=== PATIENT | male | born 1990 | race Caucasian/White ===

== ENCOUNTER 2021-07-06 05:27 | Emergency (ER) | payer SELFPAY ==
[2021-07-06 05:47] LABS: Urine Blood Trace-intact (Negative); Urine Glucose Negative (Negative); Urine Protein Negative (Negative); Urine pH 6.5 (5.0-7.0)
[2021-07-06 06:09] LABS: Hematocrit 39.2 % (39.6-49.0); RBC Red Blood Cell Count 4.19 M/uL (4.33-5.43)
[2021-07-06 06:10] LABS: Absolute Lymphocytes (CBC) 2.1 K/uL (0.7-4.9); Basophils % 0.5 % (0-1.3); MPV 9.6 fL (7.6-11.3)
[2021-07-06 06:13] LABS: Protime INR 1.06
[2021-07-06 06:16] LABS: Barbiturates NEGATIVE (NEGATIVE); Benzodiazepines NEGATIVE (NEGATIVE); Cocaine NEGATIVE (NEGATIVE); METHAMPHETAM POSITIVE (NEGATIVE); Methadone NEGATIVE (NEGATIVE); Opiates NEGATIVE (NEGATIVE); Phencyclidine NEGATIVE (NEGATIVE); THC Cannibis NEGATIVE (NEGATIVE)
[2021-07-06 06:26] LABS: ALT/SGPT 38 U/L (12-78); AST/SGOT 64 U/L (15-37); Albumin 3.9 g/dL (3.4-5.0); Alkaline Phosphatase 63 U/L (45-117); BUN Blood Urea Nitrogen 14 mg/dL (7-18); Bicarbonate 24 mmol/L (21-32); Bilirubin Direct 0.2 mg/dL (0-0.2); Bilirubin Total 0.9 mg/dL (0.2-1.0); Glucose Level 87 mg/dL (74-106); Potassium 3.1 mmol/L (3.5-5.1); Protein, Total 6.5 g/dL (6.4-8.2); Sodium Level 140 mmol/L (136-145)
--- NOTE | 2021-07-06 07:09 | RAD REPORT ---
EXAM DESCRIPTION: CT - Head Brain Wo Cont - 07/06/2021 7:02 am CLINICAL HISTORY: paresthesias COMPARISON: No comparisons TECHNIQUE: Axial 5 mm thick images of the head were obtained without IV contrast. All CT scans are performed using dose optimization technique as appropriate and may include automated exposure control or mA/KV adjustment according to patient size. FINDINGS: No intracranial hemorrhage, mass, edema or shift of mid-line structures. No acute infarcti on changes seen. No abnormal extra-axial fluid collections. Ventricles are normal. Mastoid air cells and visualized portions of the paranasal sinuses are clear. No acute bony findings. IMPRESSION: Negative non-contrast CT head examination.
--- NOTE | 2021-07-06 07:11 | RAD REPORT ---
EXAM DESCRIPTION: CT - Soft Tissue Neck W/Contr - 07/06/2021 7:02 am CLINICAL HISTORY: difficulty swallowing COMPARISON: No comparisons TECHNIQUE: During dynamic enhancement using 100 milliliters nonionic IV contrast, axial 5 millimeter thick images of the neck were obtained. All CT scans are performed using dose optimization technique as appropriate and may include automated exposure control or mA/KV adjustment according to patient size. FINDINGS: Intracranial portion the exam is unremarkable. Partially imaged globes and orbital content s unremarkable as well. Mastoid air cells are clear with partially visualized paranasal sinuses clear as well. No pharyngeal mucosal mass or asymmetry. No tonsil or tongue base abnormality seen. Soft palate, epig lottis and laryngeal structures unremarkable. Parotid, submandibular and thyroid gland tissues also u nremarkable. No mass or lymphadenopathy in the soft tissues. There is no prevertebral soft tissue thi ckening. No vascular malformation or focal vascular finding. No disc or bone abnormality seen. IMPRESSION: Unremarkable contrast-enhanced CT scan of the neck soft tissues.
--- NOTE | 2021-07-06 07:51 | EDPHYS ---
Physician Documentation [facility] Name: Todd Schmid Age: 31 yrs Sex: Male : 1990 Arrival Date: 07/06/2021 Time: 05:28 Bed 7 Private MD: ED Physician Willard Rueda HPI: 07/06 06:20 This 31 yrs old Male presents to ER via EMS with complaints of Difficulty jmm swallowing. 06:20 The patient presents with dysphagia, of solids. Onset: The symptoms/episode jmm began/occurred gradually. Modifying factors: The symptoms are alleviated by nothing, the symptoms are aggravated by nothing. This is a 31-year-old male with history of schizophrenia that presents emerge department with complaints of paresthesias down both arms but mainly to the left arm along with difficulty swallowing solids. Patient states he also has numbness in his throat. Patient states this has been ongoing for multiple months and has seen providers for this. Denies weakness. Patient states he is attempted to exercise to help alleviate this with no resolution. Historical: - Allergies: 06:08 No Known Allergies; ea - Home Meds: 06:08 olanzapine oral [Active]; ea - PMHx: 06:08 Schizophrenia; ea - PSHx: 06:08 None; ea - Immunization history:: Adult Immunizations up to date. - Social history:: Smoking status: Patient denies any tobacco usage or history of. Patient uses Patient/guardian denies using tobacco products. ROS: 06:20 Constitutional: Negative for fever, chills, and weight loss. jmm 06:20 ENT: Positive for difficulty swallowing. 06:20 All other systems are negative. Exam: 06:20 Constitutional: This is a well developed, well nourished patient who is awake, alert, jmm and in no acute distress. Head/Face: atraumatic. Eyes: EOMI, no conjunctival erythema appreciated 06:20 Neck: Trachea midline, Supple Chest/axilla: Normal chest wall appearance and motion. Cardiovascular: Regular rate and rhythm. No edema appreciated Respiratory: Normal respirations, no respiratory distress appreciated Abdomen/GI: Non distended, soft Back: Normal ROM Skin: General appearance color normal MS/ Extremity: Moves all extremities, no obvious deformities appreciated, no edema noted to the lower extremities Neuro: Awake and alert, normal gait Psych: Behavior is normal, Mood is normal, Patient is cooperative and pleasant 06:20 ENT: Posterior pharynx: is normal. Vital Signs: 05:48 BP 135 / 80; Pulse 84; Resp 17; Temp 98.2; Pulse Ox 100% ; Weight 75 kg; ea MDM: 06:16 Patient medically screened. [facility] 07:46 Data reviewed: vital signs, nurses notes. Counseling: I had a detailed discussion with jose ramon the patient and/or guardian regarding: the historical points, exam findings, and any diagnostic results supporting the discharge/admit diagnosis, lab results, radiology results, the need for outpatient follow up, to return to the emergency department if symptoms worsen or persist or if there are any questions or concerns that arise at home. ED course: Patient is alert nontoxic in appearance in the ED. Patient is able to tolerate liquids by mouth easily. I discussed the need for further evaluation by gastroenterology. Patient will follow up and otherwise given strict return precautions. Patient understood and agrees plan of care.. 07/06 05:39 Order name: Acetaminophen; Complete Time: 07:14 07/06 05:39 Order name: Basic Metabolic Panel; Complete Time: 07:14 07/06 05:39 Order name: CBC with Diff; Complete Time: 07:14 07/06 05:39 Order name: ETOH Level; Complete Time: 07:14 07/06 05:39 Order name: Hepatic Function; Complete Time: 07:14 07/06 05:39 Order name: PT-INR; Complete Time: 07:14 07/06 05:39 Order name: Ptt, Activated; Complete Time: 07:14 07/06 05:39 Order name: Urine Drug Screen; Complete Time: 07:14 07/06 05:39 Order name: EKG; Complete Time: 05:40 07/06 05:39 Order name: EKG - Nurse/Tech; Complete Time: 05:48 07/06 05:46 Order name: Urine Dipstick-Ancillary; Complete Time: 06:16 [facility] 07/06 06:17 Order name: CT Soft Tissue Neck W/contr; Complete Time: 07:14 [facility] 07/06 06:20 Order name: CT Head Brain wo Cont; Complete Time: 07:14 [facility] 07/06 05:39 Order name: IV Saline Lock; Complete Time: 05:48 07/06 05:39 Order name: Labs collected and sent; Complete Time: 05:42 ea 07/06 05:39 Order name: Urine Dipstick-Ancillary (obtain specimen); Complete Time: 05:48 ea Administered Medications: No medications were administered Disposition Summary: 07/06/21 07:51 Discharge Ordered Location: Home [facility] Condition: Stable jmm Diagnosis - Dysphagia jmm - Paresthesias jmm Followup: jm - With: Jeovanny Diamond MD - When: 2 - 3 days - Reason: Recheck today's complaints, Continuance of care, Re-evaluation by your physician Discharge Instructions: - Discharge Summary Sheet jmm - Paresthesia jmm - Dysphagia Eating Plan, Bite Size Food jmm - Dysphagia Eating Plan, Minced and Moist Foods jmm - Dysphagia Eating Plan, Pureed jmm Forms: - Medication Reconciliation Form [facility] - Thank You Letter jmm - Antibiotic Education jmm - Prescription Opioid Use jm Signatures: Dispatcher [employer] EDRobert Pollack PA PA jmm Antunez, Elena, RN RN refugio Corrections: (The following items were deleted from the chart) 06:16 06:08 Home Meds: None; ea ea
--- NOTE | 2021-07-06 07:51 | ER ---
Nurse's Notes [facility] Name: Todd Schmid Age: 31 yrs Sex: Male : 1990 Arrival Date: 07/06/2021 Time: 05:28 Bed 7 Private MD: Diagnosis: Dysphagia;Paresthesias Presentation: 07/06 05:30 Initial Sepsis Screen: Does the patient meet any 2 criteria? No. Patient's initial ea sepsis screen is negative. Initial Sepsis Screen: Does the patient meet any 2 criteria? Does the patient have a suspected source of infection? No. Patient's initial sepsis screen is negative. Risk Assessment: Do you want to hurt yourself or someone else? Patient reports no desire to harm self or others. Onset of symptoms was July 06, 2021. 05:30 Acuity: MADHAV 2 ea 05:48 Chief complaint:. Coronavirus screen: Client denies travel out of the [place] in the last ea 14 days. Ebola Screen: No symptoms or risks identified at this time. 05:48 Method Of Arrival: EMS: [facility] ea Triage Assessment: 06:16 General: Appears distressed, Behavior is anxious, restless. Pain: Complains of pain in ea dorsal aspect of left forearm. Musculoskeletal: Swelling present in left arm. Historical: - Allergies: 06:08 No Known Allergies; ea - Home Meds: 06:08 olanzapine oral [Active]; ea - PMHx: 06:08 Schizophrenia; ea - PSHx: 06:08 None; ea - Immunization history:: Adult Immunizations up to date. - Social history:: Smoking status: Patient denies any tobacco usage or history of. Patient uses Patient/guardian denies using tobacco products. Screenin:28 Abuse screen: Denies threats or abuse. Denies injuries from another. Nutritional hb screening: No deficits noted. Tuberculosis screening: No symptoms or risk factors identified. Fall Risk None identified. Assessment: 08:27 Reassessment: Patient appears in no apparent distress at this time. Patient and/or hb family updated on plan of care and expected duration. Pain level reassessed. Patient is alert, oriented x 3, equal unlabored respirations, skin warm/dry/pink. Vital Signs: 05:48 BP 135 / 80; Pulse 84; Resp 17; Temp 98.2; Pulse Ox 100% ; Weight 75 kg; ea ED Course: 05:28 Patient arrived in ED. tt3 05:47 Acetaminophen Sent. ea 05:47 Basic Metabolic Panel Sent. ea 05:47 CBC with Diff Sent. ea 05:47 ETOH Level Sent. ea 05:47 Hepatic Function Sent. ea 05:47 PT-INR Sent. ea 05:47 Ptt, Activated Sent. ea 05:48 Salicylate Sent. ea 05:48 Urine Drug Screen Sent. ea 06:02 Robert Robbins PA is PHCP. [facility] 06:02 Willard Rueda MD is Attending Physician. [facility] 06:08 Triage completed. ea 06:19 Arm band placed on right wrist. EKG completed in triage. Results shown to MD. EKG ea completed in triage. Results shown to MD. 07:02 CT Soft Tissue Neck W/contr In Process Unspecified. EDMS 07:02 CT Head Brain wo Cont In Process Unspecified. EDMS 07:50 Jeovanny Diamond MD is Referral Physician. [facility] 08:28 No provider procedures requiring assistance completed. IV discontinued, intact, hb bleeding controlled, No redness/swelling at site. 08:28 Patient has correct armband on for positive identification. hb Administered Medications: No medications were administered Outcome: 07:51 Discharge ordered by MD. [facility] 08:28 Discharged to home ambulatory. hb 08:28 Condition: stable 08:28 Discharge instructions given to patient, Instructed on discharge instructions, follow up and referral plans. Demonstrated understanding of instructions, follow-up care. 08:30 Patient left the ED. hb Signatures: Dispatcher [employer] EDIL Robert Robbins PA PA Pam Matthew RN RN hb Antunez, Elena, RN RN ea Trim, Tyler tt3 Corrections: (The following items were deleted from the chart) 06:16 06:08 Home Meds: None; refugio huff
[2021-07-06 08:36] VITALS: BP 135/80; TEMP 98.2; O2SAT 100
--- NOTE | 2021-07-06 18:24 | EKG ---
Test Date: 2021-07-06 Test Time: 05:45:21 [facility] Manager: JORI MEASUREMENT RESULTS: Intervals: Rate: 92 SD: 152 QRSD: 76 QT: 360 QTc: 445 [place]: P: 85 SD: 152 QRS: 77 T: 71 INTERPRETIVE STATEMENTS: Normal sinus rhythm Junctional ST depression, probably normal Borderline ECG No previous ECG available for comparison Electronically Signed On 07-06-21 18:20:59 CDT by Doron Kendall
== END 2021-07-06 08:30 | disposition home or self-care (01) ==
LOC: ER 05:27
DX: R20.2 Paresthesia of skin (principal); F20.9 Schizophrenia, unspecified
CPT/HCPCS: 36415; 70450; 70491; 80048; 80076; 80307; 80320; 80329; 81003; 85025; 85610; 85730; 93005; 99283; Q9967

== ENCOUNTER 2021-08-18 14:12 | Emergency (ER) | payer SELFPAY ==
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
[2021-08-18 15:49] VITALS: BP 117/70; TEMP 98.3; O2SAT 95
== END 2021-08-18 15:45 | disposition left against medical advice (07) ==
LOC: ER 14:12
DX: S00.83XA Contusion of other part of head, initial encounter (principal); Y04.2XXA Assault by strike against or bumped into by another person, initial encounter; F20.9 Schizophrenia, unspecified; F17.210 Nicotine dependence, cigarettes, uncomplicated
CPT/HCPCS: 99283

== ENCOUNTER 2021-08-25 07:15 | Emergency (ER) | payer SELFPAY ==
[2021-08-25] MEDS ORDERED: ACETAMINOPHEN 500 MG TAB ONE (08:00)
[2021-08-25] MEDS ORDERED: LORAZEPAM 1 MG TABLET ONE (08:00)
--- NOTE | 2021-08-25 09:14 | EDPHYS ---
Physician Documentation [facility] Name: Todd Schmid Age: 31 yrs Sex: Male : 1990 Arrival Date: 08/25/2021 Time: 07:18 Bed 20 Private MD: ED Physician Ramu Amaya HPI: 08/25 08:05 This 31 yrs old Male presents to ER via EMS with complaints of anxiety. ma2 08:05 The patient presents to the emergency department with anxiety. Onset: The ma2 symptoms/episode began/occurred gradually, 1 day(s) ago. Associated signs and symptoms: Pertinent negatives: chills, fever, homicidal ideation, shortness of breath, suicide ideation. Severity of symptoms: At their worst the symptoms were moderate in the emergency department the symptoms are unchanged. The patient has not experienced similar symptoms in the past. heavy alcohol drinking last night . Historical: - Allergies: 09:19 No Known Allergies; jl7 - Home Meds: 07:31 olanzapine Oral [Active]; sl2 - PMHx: 07:31 Schizophrenia; sl2 - Immunization history:: Adult Immunizations up to date, Client reports receiving the 2nd dose of the Covid vaccine. - Social history:: Smoking status: Patient reports the use of cigarette tobacco products, Patient uses alcohol, on a daily basis. Patient/guardian denies using alcohol, street drugs, The patient lives with family, with spouse, Patient uses. - Family history:: not pertinent. ROS: 08:05 Constitutional: Negative for fever, chills, and weight loss. ma2 Exam: 08:05 Constitutional: This is a well developed, well nourished patient who is awake, alert, ma2 and in no acute distress. Chest/axilla: Normal chest wall appearance and motion. Nontender with no deformity. No lesions are appreciated. Cardiovascular: Regular rate and rhythm with a normal S1 and S2. No gallops, murmurs, or rubs. Normal PMI, no JVD. No pulse deficits. Respiratory: Lungs have equal breath sounds bilaterally, clear to auscultation and percussion. No rales, rhonchi or wheezes noted. No increased work of breathing, no retractions or nasal flaring. Abdomen/GI: Soft, non-tender, with normal bowel sounds. No distension or tympany. No guarding or rebound. No evidence of tenderness throughout. Skin: Warm, dry with normal turgor. Normal color with no rashes, no lesions, and no evidence of cellulitis. MS/ Extremity: Pulses equal, no cyanosis. Neurovascular intact. Full, normal range of motion. Neuro: Awake and alert, GCS 15, oriented to person, place, time, and situation. Cranial nerves II-XII grossly intact. Motor strength 5/5 in all extremities. Sensory grossly intact. Cerebellar exam normal. Normal gait. Psych: anxiety present, however Awake, alert, with orientation to person, place and time. no si or avh Vital Signs: 07:18 BP 141 / 89; Pulse 141; Resp 20; Temp 98.6(O); Pulse Ox 98% on R/A; sl2 07:30 BP 140 / 86; Pulse 142; Resp 18; Temp 98.6(O); Pulse Ox 99% on R/A; sl2 MDM: 08:05 Differential diagnosis: drug withdrawal. depression, anxiety, alcohol withdrawal mild. [facility] 09:10 Data reviewed: vital signs, nurses notes. Counseling: I had a detailed discussion with [facility] the patient and/or guardian regarding: the historical points, exam findings, and any diagnostic results supporting the discharge/admit diagnosis, the presence of at least one elevated blood pressure reading (>120/80) during this emergency department visit, the need for outpatient follow up. Response to treatment: the patient's symptoms have markedly improved after treatment. ED course: patient does not want any treatment or blood work in the ed. he has anxiety. given his tachycardia to 140, we can not safely discharge him.. he has no si or hi or avh.. . ED course: understand risk of leaving ama which includes having a heart attack given the tachycardia . 09:14 Patient medically screened. [facility] 08/25 07:52 Order name: Diet Regular; Complete Time: 07:53 eb Administered Medications: 08:59 Not Given (Patient Refused): NS 0.9% 1000 ml IV at 1 bolus Per protocol; 1000 mL bolus sl2 08:59 Drug: Tylenol 1000 mg Route: PO; sl2 08:59 Drug: Ativan (LORazepam) 2 mg Route: PO; sl2 09:00 Not Given (Patient Refused): NS 0.9% 1000 ml IV at 1 bolus Per protocol; 1000 mL bolus sl2 Disposition Summary: 08/25/21 09:14 Left Against Medical Advice Location: Home ma2 Problem: new ma2 Symptoms: are unchanged ma2 Condition: Critical ma2 Diagnosis - Anxiety disorder, unspecified ma2 - Tachycardia, unspecified ma2 Followup: ma2 - With: Private Physician - When: Tomorrow - Reason: Recheck today's complaints Discharge Instructions: - Discharge Summary Sheet ma2 - Alcohol Abuse and Nutrition ma2 - Generalized Anxiety Disorder, Adult ma2 Prescriptions: - buspirone 5 mg Oral tablet - take 1 tablet by ORAL route 3 times per day; 30 tablet; Refills: 0, Product ma2 Selection Permitted Signatures: Dispatcher [employer] Poly Horan RN RN jl7 Ramu Amaya MD MD ma2 Monica Deal RN RN sl2
--- NOTE | 2021-08-25 09:14 | ER ---
Nurse's Notes [facility] Name: Todd Schmid Age: 31 yrs Sex: Male : 1990 Arrival Date: 08/25/2021 Time: 07:18 Bed 20 Private MD: Diagnosis: Anxiety disorder, unspecified;Tachycardia, unspecified Presentation: 08/25 07:18 Chief complaint: EMS states: Patient presents to ED via [facility] with c/o anxiety and sl2 generalized body ache with muscle cramps 6 of 10. Coronavirus screen: Vaccine status: Patient reports receiving the 2nd dose of the covid vaccine. Ebola Screen: Patient negative for fever greater than or equal to 101.5 degrees Fahrenheit, and additional compatible Ebola Virus Disease symptoms Patient denies exposure to infectious person. Patient denies travel to an Ebola-affected area in the 21 days before illness onset. No symptoms or risks identified at this time. Initial Sepsis Screen: Does the patient meet any 2 criteria? No. Patient's initial sepsis screen is negative. Does the patient have a suspected source of infection? No. Patient's initial sepsis screen is negative. Risk Assessment: Do you want to hurt yourself or someone else? Patient reports no desire to harm self or others. Onset of symptoms was August 25, 2021. 07:18 Method Of Arrival: EMS: [facility] 07:18 Acuity: MADHAV 2 sl2 Triage Assessment: 07:31 General: Appears uncomfortable, unkempt, well developed, Behavior is cooperative, sl2 anxious, restless. Pain: Complains of pain in Generalized body ache to bilateral upper \\T\\ lower extremities. Historical: - Allergies: 09:19 No Known Allergies; jl7 - Home Meds: 07:31 olanzapine Oral [Active]; sl2 - PMHx: 07:31 Schizophrenia; sl2 - Immunization history:: Adult Immunizations up to date, Client reports receiving the 2nd dose of the Covid vaccine. - Social history:: Smoking status: Patient reports the use of cigarette tobacco products, Patient uses alcohol, on a daily basis. Patient/guardian denies using alcohol, street drugs, The patient lives with family, with spouse, Patient uses. - Family history:: not pertinent. Screenin:34 Abuse screen: Denies threats or abuse. Nutritional screening: No deficits noted. sl2 Tuberculosis screening: No symptoms or risk factors identified. Never had TB. Possible symptoms: None Risk factors: None. Fall Risk None identified. No fall in past 12 months (0 pts). No secondary diagnosis (0 pts). No IV (0 pts). Ambulatory Aid- None/Bed Rest/Nurse Assist (0 pts). Gait- Normal/Bed Rest/Wheelchair (0 pts) Mental Status- Oriented to own ability (0 pts). Assessment: 07:34 Reassessment: Patient with h/o schizophrenia is AAO x 3, presents to ED with c/o sl2 anxiety - states loud noises at his apt complex which made him anxious and fearful so he walked for a long time - states have been drinking alcohol last pm. states has anxiety medications at home but did not want to go home because of the loud noises and secondly the anxiety medication may not work because he has been drinking alcohol. Patient also c/o generalized body ache and muscle cramping. Patient cooperative, however anxious and restless at this time. General: Appears uncomfortable, unkempt, well developed, Behavior is cooperative, appropriate for age, anxious, restless, Reports generalized body ache and muscle cramps 6/10. Pain: Complains of pain in generalized body - bilateral upper and lower extremities Pain does not radiate. Pain currently is 6 out of 10 on a pain scale. Quality of pain is described as aching, Pain began gradually, 3 hours ago. Is continuous, Alleviated by rest. Neuro: No deficits noted. Level of Consciousness is awake, alert, obeys commands, Oriented to person, place, time, situation, Appropriate for age Precision Inspector are equal bilaterally Moves all extremities. Gait is steady, Speech is normal, Facial symmetry appears normal, Pupils are PERRLA. Cardiovascular: Denies chest pain, diaphoresis, fatigue, lightheadedness, nausea, palpitations, shortness of breath, syncope, vomiting, Capillary refill < 3 seconds Rhythm is sinus tachycardia. Respiratory: No deficits noted. Airway is patent Trachea midline Respiratory effort is even, unlabored, Respiratory pattern is regular, symmetrical, Breath sounds are clear bilaterally. GI: No deficits noted. No signs and/or symptoms were reported involving the gastrointestinal system. : No deficits noted. No signs and/or symptoms were reported regarding the genitourinary system. EENT: No deficits noted. No signs and/or symptoms were reported regarding the EENT system. EENT: No deficits noted. No signs and/or symptoms were reported regarding the EENT system. Derm: No deficits noted. No signs and/or symptoms reported regarding the dermatologic system. Derm: Bruising that is left orbit . Musculoskeletal: Reports pain in bilateral upper and lower extremities since this am . Pain is 6 out of 10 on a pain scale. Denies. 07:42 Reassessment: Patient offered water, crackers and a fruit cup. sl2 07:53 Reassessment: Breakfast tray ordered from dietary department. sl2 08:15 Reassessment: Patient refuses to take Tylenol and Ativan - states he wants to eat sl2 something first and then see if he wants to take the medication. 08:18 Reassessment: Patient offered Breakfast tray with a warm meal. sl2 08:22 Reassessment: Security office present at bedside at patient request - states he wants sl2 to talk to someone - patient told cyber security that he spoke to someone yesterday and he just wants to let them know he is okay. 08:37 Reassessment: Dr Amaya present at bedside - patient refuses to stay in room, pacing sl2 the room and walking out into the hallway- frequent redirection required to have patient remain in his room. Patient refusing to keep cardiac, oximeter and blood pressure cuff and leads on for continuous vital sign monitoring. Patient refusing to take medications as ordered. 08:45 Reassessment: Patient refuses to eat meal that was brought to him, states " I am sl2 waiting until I calm down first before I eat anything." Patient still refuses to take medications as ordered, refuses lab draw and IV fluid administration. EDP Dr Amaya aware of same. 09:10 Reassessment: Pt's mom called, she will come pick him up and is requesting a jl7 prescription to keep him calm until his doctor appointment, ERD notified. Vital Signs: 07:18 BP 141 / 89; Pulse 141; Resp 20; Temp 98.6(O); Pulse Ox 98% on R/A; sl2 07:30 BP 140 / 86; Pulse 142; Resp 18; Temp 98.6(O); Pulse Ox 99% on R/A; sl2 Vitals: 07:34 Cardiac Rhythm Assessment Regular Sinus tach. 2 ED Course: 07:18 Patient arrived in ED. sl2 07:18 Monica Deal, RN is Primary Nurse. sl2 07:18 Ramu Amaya MD is Attending Physician. fl2 07:26 Patient has correct armband on for positive identification. Bed in low position. Call [facility] light in reach. Side rails up X 1. Pulse ox on. NIBP on. 07:30 Triage completed. sl2 07:31 Arm band placed on right wrist. sl2 08:36 Diet: Patient given a regular meal tray. 5 09:21 No provider procedures requiring assistance completed. Patient did not have IV access jl7 during this emergency room visit. Administered Medications: 08:59 Not Given (Patient Refused): NS 0.9% 1000 ml IV at 1 bolus Per protocol; 1000 mL bolus 2 08:59 Drug: Tylenol 1000 mg Route: PO; sl2 08:59 Drug: Ativan (LORazepam) 2 mg Route: PO; sl2 09:00 Not Given (Patient Refused): NS 0.9% 1000 ml IV at 1 bolus Per protocol; 1000 mL bolus 2 Outcome: 09:21 AMA AMA form signed jl7 09:21 Condition: stable jl7 09:21 Discharge instructions given to patient, family, Instructed on follow up and referral plans. medication usage, Demonstrated understanding of instructions, follow-up care. 10:30 Patient left the ED. jl7 Signatures: Sarah Real [facility] Poly Echols RN RN jl7 Ramu Amaya MD MD [facility] Monica Deal, CARLA RN 2 Corrections: (The following items were deleted from the chart) 09:21 09:10 AMA AMA form signed jl7 jl7
[2021-08-25 10:36] VITALS: TEMP 98.6
[2021-08-25 10:37] VITALS: BP 140/86; O2SAT 99
--- OUTSIDE RECORDS SUMMARY | 2021-09-01 14:03 | XMS REPORT | Continuity of Care Document ---
:1990 Author Organization [facility] t Address [address] [place] [address] Care Team Providers Name Role Phone Elsa Elizalde MD Attending Clinician Elsa ELIZALDE Attending Clinician Unavailable Problems Condition Condition Condition Status Onset Resolution Last Treating Co mments Source Name Details Category Date Date Treatment Clinician Date No known No known Disease Unive rs active active ity of problems problems [facility] Allergies, Adverse Reactions, Alerts Allergy Allergy Status Severity Reaction(s) Onset Inactive Treating Comm ents Source Name Type Date Date Clinician No Known [facility] Allergie 00:00: s 00 No Known DA Active U [facility] Drug 4-22 Allergie 00:00: s 00 NO KNOWN Drug Active [facility] Social History Social Habit Start Date Stop Date Quantity Comments Source Exposure to Not sure [facility] SARS-CoV-2 (event) Medica l Branch Sex Assigned At [birth year] [facility] 00:00:00 00:00:00 [facility] Smoking Status Start Date Stop Date Source Unknown if ever smoked [facility] Medications Ordered Filled Start Stop Current Ordering Indication Dosage Frequency Signature Comments Components Source Medication Medication Date Date Medication? Clinician (SIG) Name Name No known No Univers medications [facility] Vital Signs Vital Name Observation Time Observation Value Comments Source Systolic blood 2021-06-02 04:51:00 123 mm[Hg] [facility] Diastolic blood 2021-06-02 04:51:00 75 mm[Hg] Unive rsity of [facility] Heart rate 2021-06-02 04:51:00 123 /min Universi ty [facility] Respiratory rate 2021-06-02 04:51:00 18 /min [facility] Oxygen saturation in 2021-06-02 04:51:00 95 /min University Arterial blood by [facility] Pulse oximetry Branch Body temperature 2021-06-02 03:52:00 37.22 Radha [facility] Body height 2021-06-02 03:52:00 172.7 cm [facility] ty [facility] Body weight 2021-06-02 03:52:00 77.111 kg [facility] BMI 2021-06-02 03:52:00 25.85 kg/m2 [facility] 02 Sat by Pulse 2021-03-11 03:15:25 97 /min Oximetry Body Mass Index 2021-03-11 03:15:25 0.0 Height 2021-03-11 03:15:25 5090.16\S\2003 Pulse Rate 2021-03-11 03:15:25 99 /min Respiratory Rate 2021-03-11 03:15:25 18 /min Temperature 2021-03-11 03:15:25 36.8\S\98.2 Weight 2021-03-11 03:15:25 2494.758\S\88 02 Sat by Pulse 2021-03-08 21:44:56 97 /min Oximetry Body Mass Index 2021-03-08 21:44:56 0.0 Height 2021-03-08 21:44:56 5090.16\S\2003 Pulse Rate 2021-03-08 21:44:56 99 /min Respiratory Rate 2021-03-08 21:44:56 18 /min Temperature 2021-03-08 21:44:56 36.8\S\98.2 Weight 2021-03-08 21:44:56 2494.758\S\88 02 Sat by Pulse 2021-03-08 21:35:11 97 /min Oximetry Body Mass Index 2021-03-08 21:35:11 0.0 Height 2021-03-08 21:35:11 5090.16\S\2003 Pulse Rate 2021-03-08 21:35:11 99 /min Respiratory Rate 2021-03-08 21:35:11 18 /min Temperature 2021-03-08 21:35:11 36.8\S\98.2 Weight 2021-03-08 21:35:11 2494.758\S\88 WEIGHT 2021-03-08 21:30:00 2.164033 kg HEIGHT 2021-03-08 21:30:00 5090.16 cm Body Mass Index 2021-03-08 21:17:15 0.0 Height 2021-03-08 21:17:15 5090.16\S\2004 Weight 2021-03-08 21:17:15 2494.758\S\88 Body Mass Index 2021-03-08 20:54:40 0.0 Height 2021-03-08 20:54:40 5090.16\S\2004 Weight 2021-03-08 20:54:40 2494.758\S\88 Body Mass Index 2021-03-08 20:45:26 0.0 Height 2021-03-08 20:45:26 5090.16\S\2004 Weight 2021-03-08 20:45:26 2494.758\S\88 Body Mass Index 2021-03-08 20:20:47 0.0 Height 2021-03-08 20:20:47 5090.16\S\2004 Weight 2021-03-08 20:20:47 2494.758\S\88 Body Mass Index 2021-03-08 19:58:16 0.0 Height 2021-03-08 19:58:16 5090.16\S\2004 Weight 2021-03-08 19:58:16 2494.758\S\88 Body Mass Index 2021-03-08 19:57:15 0.0 Height 2021-03-08 19:57:15 5090.16\S\2004 Weight 2021-03-08 19:57:15 2494.758\S\88 Body Mass Index 2021-03-08 19:49:04 0.0 Height 2021-03-08 19:49:04 5090.16\S\2004 Weight 2021-03-08 19:49:04 2494.758\S\88 WEIGHT 2021-03-08 19:45:00 2.754916 kg HEIGHT 2021-03-08 19:45:00 5090.16 cm Respiratory 2021-02-09 11:13:01 No respiratory distress /min Recent Weight 2021-02-09 11:13:01 N Loss/Gain 02 Sat by Pulse 2021-02-09 11:13:01 99 /min Oximetry Body Mass Index 2021-02-09 11:13:01 24.2 Height 2021-02-09 11:13:01 172.72\S\68 Pulse Rate 2021-02-09 11:13:01 65 /min Respiratory Rate 2021-02-09 11:13:01 18 /min Temperature 2021-02-09 11:13:01 36.5\S\97.7 Weight 2021-02-09 11:13:01 26502.187\S\2544 Weight Measurement 2021-02-09 11:13:01 Estimated by Method Patient Height 2021-02-09 01:10:48 172.72\S\68 Pulse Rate 2021-02-09 01:10:48 65 /min Respiratory Rate 2021-02-09 01:10:48 18 /min Temperature 2021-02-09 01:10:48 36.5\S\97.7 Weight 2021-02-09 01:10:48 73323.187\S\2544 Weight Measurement 2021-02-09 01:10:48 Estimated by Method Patient Respiratory 2021-02-09 01:10:48 No respiratory distress /min Recent Weight 2021-02-09 01:10:48 N Loss/Gain 02 Sat by Pulse 2021-02-09 01:10:48 99 /min Oximetry Body Mass Index 2021-02-09 01:10:48 24.2 Respiratory 2021-02-08 23:59:26 No respiratory distress /min Recent Weight 2021-02-08 23:59:26 N Loss/Gain 02 Sat by Pulse 2021-02-08 23:59:26 99 /min Oximetry Body Mass Index 2021-02-08 23:59:26 24.2 Height 2021-02-08 23:59:26 172.72\S\68 Pulse Rate 2021-02-08 23:59:26 65 /min Respiratory Rate 2021-02-08 23:59:26 18 /min Temperature 2021-02-08 23:59:26 36.5\S\97.7 Weight 2021-02-08 23:59:26 86271.187\S\2544 Weight Measurement 2021-02-08 23:59:26 Estimated by Method Patient Respiratory 2021-02-08 23:49:14 No respiratory distress /min Recent Weight 2021-02-08 23:49:14 N Loss/Gain 02 Sat by Pulse 2021-02-08 23:49:14 99 /min Oximetry Body Mass Index 2021-02-08 23:49:14 24.2 Height 2021-02-08 23:49:14 172.72\S\68 Pulse Rate 2021-02-08 23:49:14 65 /min Respiratory Rate 2021-02-08 23:49:14 18 /min Temperature 2021-02-08 23:49:14 36.5\S\97.7 Weight 2021-02-08 23:49:14 93421.187\S\2544 Weight Measurement 2021-02-08 23:49:14 Estimated by Method Patient Respiratory 2021-02-08 22:39:45 No respiratory distress /min 02 Sat by Pulse 2021-02-08 22:39:45 99 /min Oximetry Body Mass Index 2021-02-08 22:39:45 24.2 Height 2021-02-08 22:39:45 172.72\S\68 Pulse Rate 2021-02-08 22:39:45 65 /min Respiratory Rate 2021-02-08 22:39:45 18 /min Temperature 2021-02-08 22:39:45 36.5\S\97.7 Weight 2021-02-08 22:39:45 04217.187\S\2544 Weight Measurement 2021-02-08 22:39:45 Estimated by Method Patient Respiratory 2021-02-08 21:58:37 No respiratory distress /min 02 Sat by Pulse 2021-02-08 21:58:37 99 /min Oximetry Body Mass Index 2021-02-08 21:58:37 24.2 Height 2021-02-08 21:58:37 172.72\S\68 Pulse Rate 2021-02-08 21:58:37 65 /min Respiratory Rate 2021-02-08 21:58:37 18 /min Temperature 2021-02-08 21:58:37 36.5\S\97.7 Weight 2021-02-08 21:58:37 77736.187\S\2544 Weight Measurement 2021-02-08 21:58:37 Estimated by Method Patient Respiratory 2021-02-08 21:58:07 No respiratory distress /min 02 Sat by Pulse 2021-02-08 21:58:07 99 /min Oximetry Body Mass Index 2021-02-08 21:58:07 24.2 Height 2021-02-08 21:58:07 172.72\S\68 Pulse Rate 2021-02-08 21:58:07 65 /min Respiratory Rate 2021-02-08 21:58:07 18 /min Temperature 2021-02-08 21:58:07 36.5\S\97.7 Weight 2021-02-08 21:58:07 14291.187\S\2544 Weight Measurement 2021-02-08 21:58:07 Estimated by Method Patient 02 Sat by Pulse 2021-02-08 20:33:27 99 /min Oximetry Body Mass Index 2021-02-08 20:33:27 24.2 Height 2021-02-08 20:33:27 172.72\S\68 Pulse Rate 2021-02-08 20:33:27 65 /min Respiratory Rate 2021-02-08 20:33:27 18 /min Temperature 2021-02-08 20:33:27 36.5\S\97.7 Weight 2021-02-08 20:33:27 81772.187\S\2544 Weight Measurement 2021-02-08 20:33:27 Estimated by Method Patient Pulse Rate 2021-02-08 20:23:46 65 /min Respiratory Rate 2021-02-08 20:23:46 18 /min Temperature 2021-02-08 20:23:46 36.5\S\97.7 Weight 2021-02-08 20:23:46 87945.187\S\2544 Weight Measurement 2021-02-08 20:23:46 Estimated by Method Patient 02 Sat by Pulse 2021-02-08 20:23:46 99 /min Oximetry Body Mass Index 2021-02-08 20:23:46 24.2 Height 2021-02-08 20:23:46 172.72\S\68 02 Sat by Pulse 2021-02-08 19:45:33 99 /min Oximetry Body Mass Index 2021-02-08 19:45:33 24.2 Height 2021-02-08 19:45:33 172.72\S\68 Pulse Rate 2021-02-08 19:45:33 65 /min Respiratory Rate 2021-02-08 19:45:33 18 /min Temperature 2021-02-08 19:45:33 36.5\S\97.7 Weight 2021-02-08 19:45:33 56959.187\S\2544 Weight Measurement 2021-02-08 19:45:33 Estimated by Method Patient 02 Sat by Pulse 2021-02-08 19:41:59 99 /min Oximetry Body Mass Index 2021-02-08 19:41:59 24.2 Height 2021-02-08 19:41:59 172.72\S\68 Pulse Rate 2021-02-08 19:41:59 65 /min Respiratory Rate 2021-02-08 19:41:59 18 /min Temperature 2021-02-08 19:41:59 36.5\S\97.7 Weight 2021-02-08 19:41:59 80744.187\S\2544 Weight Measurement 2021-02-08 19:41:59 Estimated by Method Patient 02 Sat by Pulse 2021-02-08 19:27:42 99 /min Oximetry Body Mass Index 2021-02-08 19:27:42 24.2 Height 2021-02-08 19:27:42 172.72\S\68 Pulse Rate 2021-02-08 19:27:42 65 /min Respiratory Rate 2021-02-08 19:27:42 18 /min Temperature 2021-02-08 19:27:42 36.5\S\97.7 Weight 2021-02-08 19:27:42 16299.187\S\2544 Weight Measurement 2021-02-08 19:27:42 Estimated by Method Patient WEIGHT 2021-02-08 19:19:00 72.013948 kg HEIGHT 2021-02-08 19:19:00 172.72 cm Procedures This patient has no known procedures. Encounters Start End Encounter Admission Attending Care Care Encounter Source Date/Time Date/Time Type Type Clinicians Facility Department ID 2021-06-01 2021-06-01 Emergency [facility] [id number] [facility] 22:48:00 23:51:00 Fortino Hunter [place] [id number] anish milligan [place] [id number] [facility] [id number] [place] [id number] [place] 2021-06-01 2021-06-01 Emergency [facility] [id number] [facility] 22:48:00 22:48:00 FORTINO oconnell [facility] Results This patient has no known results.
== END 2021-08-25 10:30 | disposition left against medical advice (07) ==
LOC: ER 07:15
DX: R00.0 Tachycardia, unspecified (principal); F20.9 Schizophrenia, unspecified; Z72.0 Tobacco use
CPT/HCPCS: 99284

== ENCOUNTER 2021-09-03 12:46 | Emergency (ER) | payer SELFPAY ==
--- OUTSIDE RECORDS SUMMARY | 2021-09-03 12:49 | XMS REPORT | Continuity of Care Document ---
:1990 Author Organization [facility] t Address [address] [address] Care Team Providers Name Role Phone Elsa Elizalde MD Attending Clinician Elsa ELIZALDE Attending Clinician Unavailable Problems Condition Condition Condition Status Onset Resolution Last Treating Co mments Source Name Details Category Date Date Treatment Clinician Date No known No known Disease Unive rs active active ity of problems problems [facility] Allergies, Adverse Reactions, Alerts Allergy Allergy Status Severity Reaction(s) Onset Inactive Treating Comm ents Source Name Type Date Date Clinician No Known [facility]:00: s 00 No Known DA Active U 0 [facility] Drug 4-22 Allergie 00:00: s 00 NO KNOWN Drug Active [facility] Social History Social Habit Start Date Stop Date Quantity Comments Source Exposure to Not sure [facility] SARS-CoV-2 (event) Medica l Branch Sex Assigned At [birth year] [facility] 00:00:00 00:00:00 [facility] Er Smoking Status Start Date Stop Date Source Unknown if ever smoked [facility] Medications Ordered Filled Start Stop Current Ordering Indication Dosage Frequency Signature Comments Components Source Medication Medication Date Date Medication? Clinician (SIG) Name Name No known No [facility] medications [facility] Vital Signs Vital Name Observation Time Observation Value Comments Source Systolic blood 2021-06-02 04:51:00 123 mm[Hg] [facility] Diastolic blood 2021-06-02 04:51:00 75 mm[Hg] [facility] Heart rate 2021-06-02 04:51:00 123 /min Universi ty [facility] Respiratory rate 2021-06-02 04:51:00 18 /min [facility] Oxygen saturation in 2021-06-02 04:51:00 95 /min University Arterial blood by [facility] Pulse oximetry Branch Body temperature 2021-06-02 03:52:00 37.22 Radha [facility] Body height 2021-06-02 03:52:00 [facility] Body weight 2021-06-02 03:52:00 77[facility]111 [facility] BMI 2021-06-02 03:52:00 25.85 kg/m2 [facility] 02 Sat by Pulse 2021-03-11 03:15:25 97 [...] Weight 2021-03-08 21:35:11 2494.758\S\88 WEIGHT 2021-03-08 21:30:00 2.929203 kg HEIGHT 2021-03-08 21:30:00 5090.16 cm Body [...] Weight 2021-03-08 19:49:04 2494.758\S\88 WEIGHT 2021-03-08 19:45:00 2.045203 kg HEIGHT 2021-03-08 19:45:00 5090.16 cm Respiratory 2021-02-09 11:13:01 No respiratory distress /min Recent Weight 2021-02-09 11:13:01 N Loss/Gain 02 Sat by Pulse 2021-02-09 11:13:01 99 /min Oximetry Body Mass Index 2021-02-09 11:13:01 24.2 Height 2021-02-09 11:13:01 172.72\S\68 Pulse Rate 2021-02-09 11:13:01 65 /min Respiratory Rate 2021-02-09 11:13:01 18 /min Temperature 2021-02-09 11:13:01 36.5\S\97.7 Weight 2021-02-09 11:13:01 92837.187\S\2544 Weight Measurement 2021-02-09 11:13:01 Estimated by Method Patient Height 2021-02-09 01:10:48 172.72\S\68 Pulse Rate 2021-02-09 01:10:48 65 /min Respiratory Rate 2021-02-09 01:10:48 18 /min Temperature 2021-02-09 01:10:48 36.5\S\97.7 Weight 2021-02-09 01:10:48 56027.187\S\2544 Weight Measurement 2021-02-09 01:10:48 Estimated by Method [...] Temperature 2021-02-08 23:59:26 36.5\S\97.7 Weight 2021-02-08 23:59:26 47942.187\S\2544 Weight Measurement 2021-02-08 23:59:26 Estimated by Method Patient Respiratory 2021-02-08 23:49:14 No respiratory distress /min Recent Weight 2021-02-08 23:49:14 N Loss/Gain 02 Sat by Pulse 2021-02-08 23:49:14 99 /min Oximetry Body Mass Index 2021-02-08 23:49:14 24.2 Height 2021-02-08 23:49:14 172.72\S\68 Pulse Rate 2021-02-08 23:49:14 65 /min Respiratory Rate 2021-02-08 23:49:14 18 /min Temperature 2021-02-08 23:49:14 36.5\S\97.7 Weight 2021-02-08 23:49:14 57784.187\S\2544 Weight Measurement 2021-02-08 23:49:14 Estimated by Method Patient Respiratory 2021-02-08 22:39:45 No respiratory distress /min 02 Sat by Pulse 2021-02-08 22:39:45 99 /min Oximetry Body Mass Index 2021-02-08 22:39:45 24.2 Height 2021-02-08 22:39:45 172.72\S\68 Pulse Rate 2021-02-08 22:39:45 65 /min Respiratory Rate 2021-02-08 22:39:45 18 /min Temperature 2021-02-08 22:39:45 36.5\S\97.7 Weight 2021-02-08 22:39:45 55953.187\S\2544 Weight Measurement 2021-02-08 22:39:45 Estimated by Method Patient Respiratory 2021-02-08 21:58:37 No respiratory distress /min 02 Sat by Pulse 2021-02-08 21:58:37 99 /min Oximetry Body Mass Index 2021-02-08 21:58:37 24.2 Height 2021-02-08 21:58:37 172.72\S\68 Pulse Rate 2021-02-08 21:58:37 65 /min Respiratory Rate 2021-02-08 21:58:37 18 /min Temperature 2021-02-08 21:58:37 36.5\S\97.7 Weight 2021-02-08 21:58:37 59317.187\S\2544 Weight Measurement 2021-02-08 21:58:37 Estimated by Method Patient Respiratory 2021-02-08 21:58:07 No respiratory distress /min 02 Sat by Pulse 2021-02-08 21:58:07 99 /min Oximetry Body Mass Index 2021-02-08 21:58:07 24.2 Height 2021-02-08 21:58:07 172.72\S\68 Pulse Rate 2021-02-08 21:58:07 65 /min Respiratory Rate 2021-02-08 21:58:07 18 /min Temperature 2021-02-08 21:58:07 36.5\S\97.7 Weight 2021-02-08 21:58:07 82585.187\S\2544 Weight Measurement 2021-02-08 21:58:07 Estimated by Method Patient 02 Sat by Pulse 2021-02-08 20:33:27 99 /min Oximetry Body Mass Index 2021-02-08 20:33:27 24.2 Height 2021-02-08 20:33:27 172.72\S\68 Pulse Rate 2021-02-08 20:33:27 65 /min Respiratory Rate 2021-02-08 20:33:27 18 /min Temperature 2021-02-08 20:33:27 36.5\S\97.7 Weight 2021-02-08 20:33:27 48815.187\S\2544 Weight Measurement 2021-02-08 20:33:27 Estimated by Method Patient Pulse Rate 2021-02-08 20:23:46 65 /min Respiratory Rate 2021-02-08 20:23:46 18 /min Temperature 2021-02-08 20:23:46 36.5\S\97.7 Weight 2021-02-08 20:23:46 05471.187\S\2544 Weight Measurement 2021-02-08 20:23:46 Estimated by Method [...] Temperature 2021-02-08 19:45:33 36.5\S\97.7 Weight 2021-02-08 19:45:33 85222.187\S\2544 Weight Measurement 2021-02-08 19:45:33 Estimated by Method Patient 02 Sat by Pulse 2021-02-08 19:41:59 99 /min Oximetry Body Mass Index 2021-02-08 19:41:59 24.2 Height 2021-02-08 19:41:59 172.72\S\68 Pulse Rate 2021-02-08 19:41:59 65 /min Respiratory Rate 2021-02-08 19:41:59 18 /min Temperature 2021-02-08 19:41:59 36.5\S\97.7 Weight 2021-02-08 19:41:59 07509.187\S\2544 Weight Measurement 2021-02-08 19:41:59 Estimated by Method Patient 02 Sat by Pulse 2021-02-08 19:27:42 99 /min Oximetry Body Mass Index 2021-02-08 19:27:42 24.2 Height 2021-02-08 19:27:42 172.72\S\68 Pulse Rate 2021-02-08 19:27:42 65 /min Respiratory Rate 2021-02-08 19:27:42 18 /min Temperature 2021-02-08 19:27:42 36.5\S\97.7 Weight 2021-02-08 19:27:42 35267.187\S\2544 Weight Measurement 2021-02-08 19:27:42 Estimated by Method Patient WEIGHT 2021-02-08 19:19:00 72.934367 kg HEIGHT 2021-02-08 19:19:00 172.72 cm Procedures This patient has no known procedures. Encounters Start End Encounter Admission Attending Care Care Encounter Source Date/Time Date/Time Type Type Clinicians Facility Department ID 2021-06-01 2021-06-01 [id number] Univers 22:48:00 23:51:00 Fortino Hunter [place] [id number] anish [facility] [id number] [facility] [id number] [place] [id number] Branch 2021-06-01 2021-06-01 Emergency [id number] Univers 22:48:00 22:48:00 FORTINO oconnell [facility] Results This patient has no known results.
[2021-09-03] MEDS ORDERED: DIPHENHYDRAMINE 25 MG TAB/CAP ONE (13:00)
[2021-09-03] MEDS ORDERED: predniSONE 10 MG TAB ONE (13:01)
[2021-09-03] MEDS ORDERED: predniSONE 20 MG TAB ONE (13:01)
--- NOTE | 2021-09-03 16:07 | ER ---
Nurse's Notes [facility] Name: Todd Schmid Age: 31 yrs Sex: Male : 1990 Arrival Date: 09/03/2021 Time: 12:47 Bed 20 Private MD: Diagnosis: Dysphagia, unspecified;Other acute sinusitis Presentation: 09/03 12:49 Chief complaint: Patient states: last night i was sitting up. and i took too many tw2 Zyprexa last night. like 5 of em. and i feel like my throat is swelling up. 12:53 Coronavirus screen: At this time, the client does not indicate any symptoms associated tw2 with coronavirus-19. Ebola Screen: Patient denies travel to an Ebola-affected area in the 21 days before illness onset. Initial Sepsis Screen: Does the patient meet any 2 criteria? No. Patient's initial sepsis screen is negative. Does the patient have a suspected source of infection? No. Patient's initial sepsis screen is negative. Risk Assessment: Do you want to hurt yourself or someone else? Patient reports no desire to harm self or others. Onset of symptoms was September 03, 2021. 12:53 Acuity: MADHAV 2 tw2 12:53 Method Of Arrival: Ambulatory tw2 Triage Assessment: 12:52 General: Appears Behavior is anxious. General: Behavior is restless. Pain: Denies pain. tw2 EENT: Reports "it feels like i cant swallow and it feels like my nose is swelling". Respiratory: Reports. Respiratory: Airway is patent Respiratory effort is even, unlabored, Respiratory pattern is regular, symmetrical. 12:52 Respiratory: Onset: The symptoms/episode began/occurred today, the patient has mild tw2 shortness of breath. Historical: - Allergies: 12:50 No Known Allergies; tw2 - Home Meds: 12:50 olanzapine Oral [Active]; tw2 - PMHx: 12:50 Schizophrenia; tw2 - Immunization history:: Client reports receiving the 2nd dose of the Covid vaccine. - Social history:: Smoking status: Patient reports the use of cigarette tobacco products, smokes one-half pack cigarettes per day. Screenin:57 Abuse screen: Denies threats or abuse. Nutritional screening: No deficits noted. tw2 Tuberculosis screening: No symptoms or risk factors identified. Fall Risk None identified. Assessment: 12:53 Reassessment: notified primary nurse CARLA Kamara of pts report of "throat swelling". tw2 12:54 Reassessment: provider noted of pts report of "throat swelling" at this time and tw2 provider at bedside. 13:10 Reassessment: Prednisone 50 mg PO and Benadryl 25 mg PO administered as ordered - see sl2 DEC. 13:17 Reassessment: Patient sitting up in bed - shows no signs of distress or discomfort, sl2 denies SOB - O2 sat \\T\\ 100% on room air. Cardiovascular: Rhythm is regular. Respiratory: Airway is patent Trachea midline Respiratory effort is even, unlabored, Respiratory pattern is regular, Breath sounds are clear bilaterally. EENT: Reports difficulty swallowing states feeling a tightening sensation in his nostrils and throat - no redness, swelling or exudate noted to nostrils or throat on inspection. Derm: No deficits noted. Musculoskeletal: No deficits noted. 13:37 Reassessment: Patient requested food - offered ED sandwich tray, patient currently sl2 eating meal and tolerating well, will continue to re-assess and monitor. 14:10 Reassessment: Patient requested food, offered another ED sandwich tray - tolerating sl2 meal well, denies throat tightness, swelling or pain. Denies any discomfort or untoward symptoms at this time. 15:12 Reassessment: Patient asleep, resting quietly, shows no signs of distress or sl2 discomfort. Vital signs stable - awaiting patient disposition. Vital Signs: 12:51 BP 136 / 88; Pulse 66; Resp 18; Temp 97.7(TE); Pulse Ox 100% on R/A; Weight 75.75 kg; tw2 Height 5 ft. 8 in. (172.72 cm) (R); 13:15 BP 148 / 70; Pulse 80; Resp 16; Pulse Ox 100% ; sl2 15:00 BP 105 / 62; Pulse 78; Resp 18; Pulse Ox 100% on R/A; sl2 16:30 BP 103 / 54; Pulse 78; Resp 18; Temp 99; Pulse Ox 100% on R/A; sl2 12:51 Body Mass Index 25.39 (75.75 kg, 172.72 cm) tw2 ED Course: 12:47 Patient arrived in ED. as 12:50 [facility]bins [facility] 12:50 Ruddy Schreiber MD is Attending Physician. [facility] 12:51 Arm band placed on. tw2 12:53 Triage completed. tw2 12:54 Patient has correct armband on for positive identification. Bed in low position. Call mh5 light in reach. Side rails up X 1. Warm blanket given. transcribing machine operator on. Pulse ox on. NIBP on. 12:59 Monica Deal, CARLA is Primary Nurse. sl2 13:17 No provider procedures requiring assistance completed. Patient did not have IV access sl2 during this emergency room visit. 16:07 Jean Paul Taylor MD is Referral Physician. [facility] 16:07 Marcia De Leon MD is Referral Physician. [facility] Administered Medications: 13:06 Drug: predniSONE 60 mg Route: PO; sl2 16:30 Follow up: Response: No adverse reaction; Marked relief of symptoms sl2 13:06 Drug: diphenhydrAMINE 25 mg Route: PO; sl2 16:30 Follow up: Response: No adverse reaction; Marked relief of symptoms sl2 Outcome: 16:06 Discharge ordered by MD. [facility] 16:53 Discharged to home with family. sl2 16:53 Condition: stable 16:53 Discharge instructions given to patient, family, Instructed on discharge instructions, follow up and referral plans. medication usage, Demonstrated understanding of instructions, follow-up care, medications, Prescriptions given X 1. 16:55 Patient left the ED. sl2 Signatures: Robert Robbins PA PA Mónica Coello Tara, RN RN 2 Sarah Real [facility] Monica Deal, CARLA RN sl2 Corrections: (The following items were deleted from the chart) 13:03 12:52 General: Behavior is tw2 tw2
--- NOTE | 2021-09-03 16:07 | EDPHYS ---
Physician Documentation [facility] Name: Todd Schmid Age: 31 yrs Sex: Male : 1990 Arrival Date: 09/03/2021 Time: 12:47 Bed 20 Private MD: ED Physician Ruddy Schreiber HPI: 09/03 12:57 This 31 yrs old Male presents to ER via Ambulatory with complaints of jmm Shortness Of Breath, Throat Swelling. 12:57 The patient has shortness of breath at rest. Onset: The symptoms/episode began/occurred jmm today. Duration: The symptoms are continuous, and are unchanged since they started. The patient's shortness of breath is aggravated by drinking, eating. Associated signs and symptoms: Pertinent negatives: non-productive cough, productive cough, loss of consciousness. This is a 31-year-old male with a history of schizophrenia that presents emerged part with complaints of sinus congestion and a swelling sensation in his throat beginning this morning. Patient states that this occurred after taking too much of his medicine. Patient denies SI or HI. Denies vomiting. Patient states having some shortness of breath. Historical: - Allergies: 12:50 No Known Allergies; tw2 - Home Meds: 12:50 olanzapine Oral [Active]; tw2 - PMHx: 12:50 Schizophrenia; tw2 - Immunization history:: Client reports receiving the 2nd dose of the Covid vaccine. - Social history:: Smoking status: Patient reports the use of cigarette tobacco products, smokes one-half pack cigarettes per day. ROS: 12:57 Constitutional: Negative for fever, chills, and weight loss. jmm 12:57 ENT: Positive for sinus congestion, sore throat. 12:57 All other systems are negative. Exam: 12:57 Head/Face: atraumatic. Eyes: EOMI, no conjunctival erythema appreciated jmm 12:57 Neck: Trachea midline, Supple Chest/axilla: Normal chest wall appearance and motion. Cardiovascular: Regular rate and rhythm. No edema appreciated Respiratory: Normal respirations, no respiratory distress appreciated Abdomen/GI: Non distended, soft Back: Normal ROM Skin: General appearance color normal MS/ Extremity: Moves all extremities, no obvious deformities appreciated, no edema noted to the lower extremities Neuro: Awake and alert, normal gait Psych: Behavior is normal, Mood is normal, Patient is cooperative and pleasant 12:57 Constitutional: The patient appears alert, awake, anxious. 12:57 ENT: Edema noted to the mucosa of the left nostril. No pharyngeal edema is appreciated. Patient able to tolerate his secretions. Vital Signs: 12:51 BP 136 / 88; Pulse 66; Resp 18; Temp 97.7(TE); Pulse Ox 100% on R/A; Weight 75.75 kg; tw2 Height 5 ft. 8 in. (172.72 cm) (R); 13:15 BP 148 / 70; Pulse 80; Resp 16; Pulse Ox 100% ; sl2 15:00 BP 105 / 62; Pulse 78; Resp 18; Pulse Ox 100% on R/A; sl2 16:30 BP 103 / 54; Pulse 78; Resp 18; Temp 99; Pulse Ox 100% on R/A; sl2 12:51 Body Mass Index 25.39 (75.75 kg, 172.72 cm) tw2 MDM: 12:57 Patient medically screened. [facility] 16:05 Data reviewed: vital signs, nurses notes. Counseling: I had a detailed discussion with michael the patient and/or guardian regarding: the historical points, exam findings, and any diagnostic results supporting the discharge/admit diagnosis, the need for outpatient follow up, to return to the emergency department if symptoms worsen or persist or if there are any questions or concerns that arise at home. Administered Medications: 13:06 Drug: predniSONE 60 mg Route: PO; sl2 16:30 Follow up: Response: No adverse reaction; Marked relief of symptoms sl2 13:06 Drug: diphenhydrAMINE 25 mg Route: PO; sl2 16:30 Follow up: Response: No adverse reaction; Marked relief of symptoms sl2 Disposition: 17:14 Co-signature as Attending Physician, Ruddy Schreiber MD. rn 17:14 I agree with the assessment and plan of care. Attestation: The patient's history, exam rn findings, diagnostics, and a summary of any interventions or procedures was reviewed in detail with Robert MAYES. Disposition Summary: 09/03/21 16:06 Discharge Ordered Location: Home [facility] Condition: Stable [facility] Diagnosis - Dysphagia, unspecified jmm - Other acute sinusitis [facility] Followup: [facility] - With: Private Physician - When: 2 - 3 days - Reason: Recheck today's complaints, Continuance of care, Re-evaluation by your physician Followup: [facility] - With: Jean Paul Taylor MD - When: 2 - 3 days - Reason: Recheck today's complaints, Continuance of care, Re-evaluation by your physician Followup: [facility] - With: Marcia De Leon MD - When: 2 - 3 days - Reason: Recheck today's complaints, Continuance of care, Re-evaluation by your physician Discharge Instructions: - Discharge Summary Sheet jm - Dysphagia jm - Sinusitis, Adult [facility] Forms: - Medication Reconciliation Form jmm - Work release form bd - Thank You Letter [facility] - Antibiotic Education [facility] - Prescription Opioid Use [facility] Prescriptions: - Medrol (Logan) 4 mg Oral Tablets, Dose Pack - take 1 tablet by ORAL route as directed - follow package instructions; 1 [facility] packet; Refills: 0, Product Selection Permitted Signatures: Robert Robbins PA PA jmm Nieto, Roman, MD MD rn Sharifa Ocampo RN RN tw2 Monica Deal RN RN sl2
[2021-09-03 17:01] VITALS: O2SAT 100
[2021-09-03 17:05] VITALS: BP 103/54; TEMP 99
== END 2021-09-03 16:55 | disposition home or self-care (01) ==
LOC: ER 12:46
DX: J01.80 Other acute sinusitis (principal); R13.10 Dysphagia, unspecified; F17.210 Nicotine dependence, cigarettes, uncomplicated
CPT/HCPCS: 99284; J7512

== ENCOUNTER 2021-10-06 00:04 | Emergency (ER) | payer SELFPAY ==
--- OUTSIDE RECORDS SUMMARY | 2021-10-06 00:08 | XMS REPORT | Continuity of Care Document ---
:1990 Author Organization [facility] t Address [address] [place] [address] Care Team Providers Name Role Phone Elsa Elizalde MD Attending Clinician Elsa ELIZALDE Attending Clinician Unavailable Problems Condition Condition Condition Status Onset Resolution Last Treating Co mments Source Name Details Category Date Date Treatment Clinician Date No known No known Disease Unive rs active active ity of problems problems [facility] Allergies, Adverse Reactions, Alerts Allergy Allergy Status Severity Reaction(s) Onset Inactive Treating Comm ents Source Name Type Date Date Clinician No Known [facility] Allergie 00:00: s 00 No Known DA Active U 0 [facility] 4-22 Allergie 00:00: s 00 NO KNOWN Drug Active [facility] Social History Social Habit Start Date Stop Date Quantity Comments Source Exposure to Not sure [facility] SARS-CoV-2 (event) Medica l Branch Sex Assigned At [birth year] [facility] 00:00:00 00:00:00 [facility] Smoking Status Start Date Stop Date Source Unknown if ever smoked [facility] Medications Ordered Filled Start Stop Current Ordering Indication Dosage Frequency Signature Comments Components Source Medication Medication Date Date Medication? Clinician (SIG) Name Name No known No Univers medications [facility] Vital Signs Vital Name Observation Time Observation Value Comments Source Systolic blood 2021-06-02 04:51:00 123 mm[Hg] [facility] Diastolic blood 2021-06-02 04:51:00 75 mm[Hg] [facility] Heart rate 2021-06-02 04:51:00 123 /min Universi ty [facility] Respiratory rate 2021-06-02 04:51:00 18 /min [facility] Oxygen saturation in 2021-06-02 04:51:00 95 /min University Arterial blood by [facility] Pulse oximetry Branch Body temperature 2021-06-02 03:52:00 37.22 Radha [facility] Body height 2021-06-02 03:52:00 172.7 cm [facility] Body weight 2021-06-02 03:52:00 77.111 kg [facility] BMI 2021-06-02 03:52:00 25.85 kg/m2 [facility] 02 Sat by Pulse 2021-03-11 03:15:25 97 [...] Weight 2021-03-08 21:35:11 2494.758\S\88 WEIGHT 2021-03-08 21:30:00 2.971626 kg HEIGHT 2021-03-08 21:30:00 5090.16 cm Body [...] Weight 2021-03-08 19:49:04 2494.758\S\88 WEIGHT 2021-03-08 19:45:00 2.616233 kg HEIGHT 2021-03-08 19:45:00 5090.16 cm Respiratory 2021-02-09 11:13:01 No respiratory distress /min Recent Weight 2021-02-09 11:13:01 N Loss/Gain 02 Sat by Pulse 2021-02-09 11:13:01 99 /min Oximetry Body Mass Index 2021-02-09 11:13:01 24.2 Height 2021-02-09 11:13:01 172.72\S\68 Pulse Rate 2021-02-09 11:13:01 65 /min Respiratory Rate 2021-02-09 11:13:01 18 /min Temperature 2021-02-09 11:13:01 36.5\S\97.7 Weight 2021-02-09 11:13:01 65686.187\S\2544 Weight Measurement 2021-02-09 11:13:01 Estimated by Method Patient Height 2021-02-09 01:10:48 172.72\S\68 Pulse Rate 2021-02-09 01:10:48 65 /min Respiratory Rate 2021-02-09 01:10:48 18 /min Temperature 2021-02-09 01:10:48 36.5\S\97.7 Weight 2021-02-09 01:10:48 82447.187\S\2544 Weight Measurement 2021-02-09 01:10:48 Estimated by Method [...] Temperature 2021-02-08 23:59:26 36.5\S\97.7 Weight 2021-02-08 23:59:26 28425.187\S\2544 Weight Measurement 2021-02-08 23:59:26 Estimated by Method Patient Respiratory 2021-02-08 23:49:14 No respiratory distress /min Recent Weight 2021-02-08 23:49:14 N Loss/Gain 02 Sat by Pulse 2021-02-08 23:49:14 99 /min Oximetry Body Mass Index 2021-02-08 23:49:14 24.2 Height 2021-02-08 23:49:14 172.72\S\68 Pulse Rate 2021-02-08 23:49:14 65 /min Respiratory Rate 2021-02-08 23:49:14 18 /min Temperature 2021-02-08 23:49:14 36.5\S\97.7 Weight 2021-02-08 23:49:14 37987.187\S\2544 Weight Measurement 2021-02-08 23:49:14 Estimated by Method Patient Respiratory 2021-02-08 22:39:45 No respiratory distress /min 02 Sat by Pulse 2021-02-08 22:39:45 99 /min Oximetry Body Mass Index 2021-02-08 22:39:45 24.2 Height 2021-02-08 22:39:45 172.72\S\68 Pulse Rate 2021-02-08 22:39:45 65 /min Respiratory Rate 2021-02-08 22:39:45 18 /min Temperature 2021-02-08 22:39:45 36.5\S\97.7 Weight 2021-02-08 22:39:45 84690.187\S\2544 Weight Measurement 2021-02-08 22:39:45 Estimated by Method Patient Respiratory 2021-02-08 21:58:37 No respiratory distress /min 02 Sat by Pulse 2021-02-08 21:58:37 99 /min Oximetry Body Mass Index 2021-02-08 21:58:37 24.2 Height 2021-02-08 21:58:37 172.72\S\68 Pulse Rate 2021-02-08 21:58:37 65 /min Respiratory Rate 2021-02-08 21:58:37 18 /min Temperature 2021-02-08 21:58:37 36.5\S\97.7 Weight 2021-02-08 21:58:37 31130.187\S\2544 Weight Measurement 2021-02-08 21:58:37 Estimated by Method Patient Respiratory 2021-02-08 21:58:07 No respiratory distress /min 02 Sat by Pulse 2021-02-08 21:58:07 99 /min Oximetry Body Mass Index 2021-02-08 21:58:07 24.2 Height 2021-02-08 21:58:07 172.72\S\68 Pulse Rate 2021-02-08 21:58:07 65 /min Respiratory Rate 2021-02-08 21:58:07 18 /min Temperature 2021-02-08 21:58:07 36.5\S\97.7 Weight 2021-02-08 21:58:07 94224.187\S\2544 Weight Measurement 2021-02-08 21:58:07 Estimated by Method Patient 02 Sat by Pulse 2021-02-08 20:33:27 99 /min Oximetry Body Mass Index 2021-02-08 20:33:27 24.2 Height 2021-02-08 20:33:27 172.72\S\68 Pulse Rate 2021-02-08 20:33:27 65 /min Respiratory Rate 2021-02-08 20:33:27 18 /min Temperature 2021-02-08 20:33:27 36.5\S\97.7 Weight 2021-02-08 20:33:27 81335.187\S\2544 Weight Measurement 2021-02-08 20:33:27 Estimated by Method Patient Pulse Rate 2021-02-08 20:23:46 65 /min Respiratory Rate 2021-02-08 20:23:46 18 /min Temperature 2021-02-08 20:23:46 36.5\S\97.7 Weight 2021-02-08 20:23:46 46788.187\S\2544 Weight Measurement 2021-02-08 20:23:46 Estimated by Method [...] Temperature 2021-02-08 19:45:33 36.5\S\97.7 Weight 2021-02-08 19:45:33 13658.187\S\2544 Weight Measurement 2021-02-08 19:45:33 Estimated by Method Patient 02 Sat by Pulse 2021-02-08 19:41:59 99 /min Oximetry Body Mass Index 2021-02-08 19:41:59 24.2 Height 2021-02-08 19:41:59 172.72\S\68 Pulse Rate 2021-02-08 19:41:59 65 /min Respiratory Rate 2021-02-08 19:41:59 18 /min Temperature 2021-02-08 19:41:59 36.5\S\97.7 Weight 2021-02-08 19:41:59 91908.187\S\2544 Weight Measurement 2021-02-08 19:41:59 Estimated by Method Patient 02 Sat by Pulse 2021-02-08 19:27:42 99 /min Oximetry Body Mass Index 2021-02-08 19:27:42 24.2 Height 2021-02-08 19:27:42 172.72\S\68 Pulse Rate 2021-02-08 19:27:42 65 /min Respiratory Rate 2021-02-08 19:27:42 18 /min Temperature 2021-02-08 19:27:42 36.5\S\97.7 Weight 2021-02-08 19:27:42 96486.187\S\2544 Weight Measurement 2021-02-08 19:27:42 Estimated by Method Patient WEIGHT 2021-02-08 19:19:00 72.890506 kg HEIGHT 2021-02-08 19:19:00 172.72 cm Procedures This patient has no known procedures. Encounters Start End Encounter Admission Attending Care Care Encounter Source Date/Time Date/Time Type Type Clinicians Facility Department ID 2021-06-01 2021[facility]06[id number] Univers 22:48:00 23:51:00 Fortino [place] [id number] anish Day [facility] [id number] [facility] [id number] [place] [id number] Branch 2021-06-01 2021-06-01 Emergency [facility] [id number] Univers 22:48:00 22:48:00 FORTINO oconnell [facility] Results This patient has no known results.
[2021-10-06 00:30] LABS: Absolute Lymphocytes (CBC) 2.3 K/uL (0.7-4.9); Basophils % 0.6 % (0-1.3); Hematocrit 39.2 % (39.6-49.0); Lymphocytes % 24.9 % (15.3-44.8); MPV 8.2 fL (7.6-11.3); RBC Red Blood Cell Count 4.24 M/uL (4.33-5.43)
[2021-10-06 00:37] LABS: Protime INR 1.12
[2021-10-06 00:58] LABS: ALT/SGPT 49 U/L (12-78); AST/SGOT 48 U/L (15-37); Albumin 3.5 g/dL (3.4-5.0); Alkaline Phosphatase 77 U/L (45-117); BUN Blood Urea Nitrogen 27 mg/dL (7-18); Bicarbonate 23 mmol/L (21-32); Bilirubin Direct 0.1 mg/dL (0-0.2); Bilirubin Total 0.6 mg/dL (0.2-1.0); Glucose Level 94 mg/dL (74-106); Potassium 3.7 mmol/L (3.5-5.1); Protein, Total 6.4 g/dL (6.4-8.2); Sodium Level 139 mmol/L (136-145)
[2021-10-06 02:31] LABS: Urine Blood Negative (Negative); Urine Glucose Negative (Negative); Urine Protein 1+ (Negative); Urine Specific Gravity >=1.030 (1.005-1.030)
[2021-10-06 02:58] LABS: Barbiturates NEGATIVE (NEGATIVE); Benzodiazepines NEGATIVE (NEGATIVE); Cocaine NEGATIVE (NEGATIVE); METHAMPHETAM POSITIVE (NEGATIVE); Methadone NEGATIVE (NEGATIVE); Opiates NEGATIVE (NEGATIVE); Phencyclidine NEGATIVE (NEGATIVE); THC Cannibis NEGATIVE (NEGATIVE)
--- NOTE | 2021-10-06 07:35 | ER ---
Nurse's Notes [facility] Name: Todd Schmid Age: 31 yrs Sex: Male : 1990 Arrival Date: 10/06/2021 Time: 00:14 Bed 5 Private MD: Diagnosis: Schizophrenia, unspecified;Adverse effect of amphetamines Presentation: 10/06 00:14 Chief complaint: Brought in by PD for walking in the street, assumed a danger to self; bb Officer reports patient has been off of psych meds for months. Coronavirus screen: At this time, the client does not indicate any symptoms associated with coronavirus-19. Ebola Screen: No symptoms or risks identified at this time. 00:14 Acuity: MADHAV 2 bb 00:14 Method Of Arrival: Law Enforcement: Mental Health office bb 00:17 Initial Sepsis Screen: Does the patient meet any 2 criteria? No. Patient's initial bb sepsis screen is negative. Does the patient have a suspected source of infection? No. Patient's initial sepsis screen is negative. Risk Assessment: Do you want to hurt yourself or someone else? Patient reports no desire to harm self or others. Onset of symptoms was October 06, 2021. Historical: - Allergies: 00:19 No Known Allergies; bb - Home Meds: 00:19 None [Active]; bb - PMHx: 00:19 Schizophrenia; bb - PSHx: 00:19 Arm surgery; bb - Immunization history:: Adult Immunizations up to date. - Social history:: Smoking status: Patient reports the use of cigarette tobacco products, smokes one-half pack cigarettes per day. Screenin:20 Abuse screen: Denies threats or abuse. Denies injuries from another. Nutritional lp1 screening: No deficits noted. Tuberculosis screening: No symptoms or risk factors identified. Fall Risk None identified. Assessment: 00:18 General: Patient refused hospital gown " It is way to cold, I cannot do a gown." Warm tw5 blanket was offered " Oh no, I wont be here that long I cannot do that.". 00:25 General: Appears in no apparent distress. Behavior is anxious. Pain: Denies pain. tw5 Neuro: Level of Consciousness is awake, alert, obeys commands, Oriented to person, place, time, situation. Cardiovascular: Rhythm is sinus tachycardia. Respiratory: Airway is patent Trachea midline Respiratory effort is even, unlabored. Derm: Skin is intact, is healthy with good turgor. 00:25 General: Reports Snack provided to patient " Do you have any hot food? Last time I got tw5 hot food.". 00:56 Reassessment: Patient appears in no apparent distress at this time. No changes from tw5 previously documented assessment. General: Patient is restless in the bed. 01:35 Reassessment: Patient appears in no apparent distress at this time. No changes from tw5 previously documented assessment. Patient and/or family updated on plan of care and expected duration. Pain level reassessed. Patient asked " I am good, so why am I here?" Patient tried to explain to nursing staff what he had been doing prior to arrival " I was in the street, but I couldn't decide if I wanted to go forward or back, up or down the street. It was dark I was just trying to get around." Patients speak is quick. 02:42 General: Behavior is anxious, restless. tw5 05:09 General: Behavior is drowsy. tw5 06:38 General: Reports Patient has head under covers. He appears to be yelling to himself. tw5 Vital Signs: 00:17 BP 131 / 79; Pulse 89; Resp 18; Temp 98.1(O); Pulse Ox 98% on R/A; Weight 65.77 kg (R); bb Height 5 ft. 8 in. (172.72 cm); Pain 0/10; 01:00 BP 117 / 74; Resp 20; tw5 02:42 tw5 07:01 BP 121 / 74; Pulse 72; Resp 18; Pulse Ox 96% on R/A; oe 00:17 Body Mass Index 22.05 (65.77 kg, 172.72 cm) bb 02:42 patient refusing to be monitored at this time. tw5 ED Course: 00:14 Patient arrived in ED. bb 00:14 Naty Heath is Primary Nurse. tw5 00:15 River Palmer MD is Attending Physician. mh7 00:16 Triage completed. bb 00:17 Arm band placed on right wrist. bb 00:19 Initial lab(s) drawn, by me, sent to lab. lp1 00:20 Patient has correct armband on for positive identification. Sitter at bedside. lp1 00:32 Basic Metabolic Panel Sent. tw5 00:33 Urine Drug Screen Sent. tw5 00:33 ETOH Level Sent. tw 00:33 Hepatic Function Sent. 00:33 PT-INR Sent. 00:33 Ptt, Activated Sent. tw 00:33 Salicylate Sent. tw 00:33 Acetaminophen Sent. tw 00:33 Basic Metabolic Panel Sent. 00:33 Acetaminophen Level Sent. tw5 01:35 Verbal reassurance given. tw5 02:43 Diet: Patient given snack. tw5 05:09 Appears to be sleeping. Awaiting re-evaluation by ER provider. tw5 05:09 Patient did not have IV access during this emergency room visit. tw5 07:04 Attending Physician role handed off by River Palmer MD rn 07:04 Ruddy Schreiber MD is Attending Physician. rn 07:19 called [facility]/ they will page the screener recreation adviser. cs9 07:41 No provider procedures requiring assistance completed. jl7 Administered Medications: No medications were administered Outcome: 07:35 Discharge ordered by . rn 07:41 Discharged to home ambulatory. jl7 07:41 Condition: stable 07:41 Discharge instructions given to patient, Instructed on discharge instructions, follow up and referral plans. Demonstrated understanding of instructions, follow-up care. 07:42 Patient left the ED. jl7 Signatures: Katerin Rosenberg, CARLA RN bb Ruddy Schreiber MD MD rn Pena, Laura, RN RN lp1 Jurgen Nolan Jahala, RN RN jl7 River Palmer MD MD [facility] Naty Heath [facility] Gwen Cabrera cs9
--- NOTE | 2021-10-06 07:36 | EDPHYS ---
Physician Documentation [facility] Name: Todd Schmid Age: 31 yrs Sex: Male : 1990 Arrival Date: 10/06/2021 Time: 00:14 Bed 5 Private MD: ED Physician Ruddy Schreiber HPI: 10/06 00:23 This 31 yrs old Male presents to ER via Law Enforcement with complaints of Altered mh7 Mental Status. 00:23 The patient presents to the emergency department with anxiety, over unknown mh7 circumstances. Onset: The symptoms/episode began/occurred yesterday. Past psychiatric history: Prior diagnosis: bipolar disorder, schizophrenia, Psychiatric medications include: Does not remember the name of meds, Primary psychiatric physician: the patient does not have a primary psychiatric physician, the patient has not had a prior suicide gesture, the patient does not have a previous inpatient psychiatric history, the patient's last psychiatric treatment was Several months ago. Associated signs and symptoms: Pertinent positives; anxiety, substance abuse, Pertinent negatives: abdominal pain, chest pain, chills, delusions, depression, fever, hallucinations, headache, homicidal ideation, nausea, night sweats, palpitations, paranoia, shortness of breath, suicide ideation, tremor, vomiting. Severity of symptoms: At their worst the symptoms were moderate yesterday, in the emergency department the symptoms are unchanged. Patient brought in by police after being found walking in the street. Patient states that he has been feeling anxious over the past day. He admits to using methamphetamine, last time was few days ago. He reports a history of bipolar disorder and schizophrenia but has not taken any medication in several months. He does not remember the name of his medications. He denies any injuries, headache, neck pain, chest pain, abdominal pain, shortness of breath, fever, cough, nausea, vomiting, diarrhea, dizziness, numbness/tingling, or weakness. He denies any suicidal or homicidal ideation. He denies any auditory or visual hallucinations.. Historical: - Allergies: 00:19 No Known Allergies; bb - Home Meds: 00:19 None [Active]; bb - PMHx: 00:19 Schizophrenia; bb - PSHx: 00:19 Arm surgery; bb - Immunization history:: Adult Immunizations up to date. - Social history:: Smoking status: Patient reports the use of cigarette tobacco products, smokes one-half pack cigarettes per day. ROS: 00:23 Constitutional: Negative for fever, chills, and weight loss, Eyes: Negative for injury, mh7 pain, redness, and discharge, ENT: Negative for injury, pain, and discharge, Neck: Negative for injury, pain, and swelling, Cardiovascular: Negative for chest pain, palpitations, and edema, Respiratory: Negative for shortness of breath, cough, wheezing, and pleuritic chest pain, Abdomen/GI: Negative for abdominal pain, nausea, vomiting, diarrhea, and constipation, Back: Negative for injury and pain, : Negative for injury, bleeding, discharge, and swelling, MS/Extremity: Negative for injury and deformity, Skin: Negative for injury, rash, and discoloration, Neuro: Negative for headache, weakness, numbness, tingling, and seizure. 00:23 Allergy/Immunology: Negative for hives, rash, and allergies, Endocrine: Negative for neck swelling, polydipsia, polyuria, polyphagia, and marked weight changes, Hematologic/Lymphatic: Negative for swollen nodes, abnormal bleeding, and unusual bruising. 00:23 Psych: Negative for depression, alcohol dependence, auditory hallucinations, visual hallucinations, homicidal ideation, insomnia, suicide gesture, suicidal ideation. Exam: 00:23 Head/Face: Normocephalic, atraumatic. Eyes: Pupils equal round and reactive to light, mh7 extra-ocular motions intact. Lids and lashes normal. Conjunctiva and sclera are non-icteric and not injected. Cornea within normal limits. Periorbital areas with no swelling, redness, or edema. Neck: Trachea midline, no thyromegaly or masses palpated, and no cervical lymphadenopathy. Supple, full range of motion without nuchal rigidity, or vertebral point tenderness. No Meningismus. Chest/axilla: Normal chest wall appearance and motion. Nontender with no deformity. No lesions are appreciated. Cardiovascular: Regular rate and rhythm with a normal S1 and S2. No gallops, murmurs, or rubs. Normal PMI, no JVD. No pulse deficits. Respiratory: Lungs have equal breath sounds bilaterally, clear to auscultation and percussion. No rales, rhonchi or wheezes noted. No increased work of breathing, no retractions or nasal flaring. Abdomen/GI: Soft, non-tender, with normal bowel sounds. No distension or tympany. No guarding or rebound. No evidence of tenderness throughout. Back: No spinal tenderness. No costovertebral tenderness. Full range of motion. Skin: Warm, dry with normal turgor. Normal color with no rashes, no lesions, and no evidence of cellulitis. MS/ Extremity: Pulses equal, no cyanosis. Neurovascular intact. Full, normal range of motion. Neuro: Awake and alert, GCS 15, oriented to person, place, time, and situation. Cranial nerves II-XII grossly intact. Motor strength 5/5 in all extremities. Sensory grossly intact. Cerebellar exam normal. Normal gait. 00:23 Constitutional: The patient appears in no acute distress, alert, awake, anxious. 00:23 Psych: Behavior/mood is cooperative, anxious, Affect is calm, Oriented to person, place, time, Patient has no thoughts/intents to harm self or others. Judgement / Insight is normal. Memory is normal. Delusions/hallucinations are not present. Vital Signs: 00:17 BP 131 / 79; Pulse 89; Resp 18; Temp 98.1(O); Pulse Ox 98% on R/A; Weight 65.77 kg (R); bb Height 5 ft. 8 in. (172.72 cm); Pain 0/10; 01:00 BP 117 / 74; Resp 20; tw5 02:42 tw5 07:01 BP 121 / 74; Pulse 72; Resp 18; Pulse Ox 96% on R/A; oe 00:17 Body Mass Index 22.05 (65.77 kg, 172.72 cm) bb 02:42 patient refusing to be monitored at this time. tw5 MDM: 07:04 Patient medically screened. rn 07:05 ED course: Pt signed out to me by Dr. Palmer, reports plan was to get [facility] to rn yary and if they are ok with discharge, will discharge. . 07:33 Differential diagnosis: psychosis secondary to non-compliance. Data reviewed: vital rn signs, nurses notes, lab test result(s), EKG, and as a result, I will discharge patient. Counseling: I had a detailed discussion with the patient and/or guardian regarding: the historical points, exam findings, and any diagnostic results supporting the discharge/admit diagnosis, lab results, the need for outpatient follow up, to return to the emergency department if symptoms worsen or persist or if there are any questions or concerns that arise at home. Response to treatment: the patient's symptoms have markedly improved after treatment, the patient's condition has returned to base line, the patient is now symptom free, and as a result, I will discharge patient. Special discussion: I discussed with the patient/guardian in detail that at this point there is no indication for admission to the hospital. It is understood, however, that if the symptoms persist or worsen the patient needs to return immediately for re-evaluation. ED course: Patient evaluated this morning, ate breakfast, woke up from sleep, states feels much better. Still denies any suicidal ideation or homicidal ideation. Dr. Palmer stated patient never reported suicidal or homicidal thoughts or ideation. Patient with a history of schizoaffective disorder, was standing near the road, patient states was not on the road and was picked up by police simply for being on the road. Denies that he was trying to harm himself. Plans on going home after being discharged here. Without any thoughts of hurting himself or others I cannot keep him here against his will. Stable vital signs.. 10/06 00:16 Order name: Acetaminophen bb 10/06 00:16 Order name: Basic Metabolic Panel 10/06 00:16 Order name: CBC with Diff; Complete Time: 01:03 10/06 00:16 Order name: ETOH Level; Complete Time: 01:03 10/06 00:16 Order name: Hepatic Function; Complete Time: 01:03 10/06 00:16 Order name: PT-INR; Complete Time: 01:03 10/06 00:16 Order name: Ptt, Activated; Complete Time: 01:03 10/06 00:16 Order name: Salicylate; Complete Time: 01:03 10/06 00:16 Order name: Urine Drug Screen; Complete Time: 06:03 10/06 00:16 Order name: EKG; Complete Time: 00:17 10/06 00:16 Order name: Acetaminophen Level; Complete Time: 01:03 EDMS 10/06 00:16 Order name: Basic Metabolic Panel; Complete Time: 01:03 EDMS 10/06 02:31 Order name: Urine Dipstick-Ancillary; Complete Time: 06:03 EDMS 10/06 07:36 Order name: Diet Finger Food; Complete Time: 07:37 mh5 10/06 00:16 Order name: EKG - Nurse/Tech; Complete Time: 00:16 bb 10/06 00:16 Order name: Labs collected and sent; Complete Time: 00:16 bb Administered Medications: No medications were administered Disposition Summary: 10/06/21 07:35 Discharge Ordered Location: Home rn Problem: new rn Symptoms: have improved rn Condition: Stable rn Diagnosis - Schizophrenia, unspecified rn - Adverse effect of amphetamines rn Followup: rn - With: Private Physician - When: As needed - Reason: Recheck today's complaints, Re-evaluation by your physician Discharge Instructions: - Discharge Summary Sheet rn - Schizophrenia rn Forms: - Medication Reconciliation Form rn - Thank You Letter rn - Antibiotic rn homecare - Prescription Opioid Use rn Signatures: Dispatcher [employer] Katerin Molina RN RN bb Nieto, Roman, MD MD rn Holmes, Maurice, MD MD mh7
[2021-10-06 07:48] VITALS: TEMP 98.1
[2021-10-06 07:52] VITALS: BP 121/74; O2SAT 96
--- NOTE | 2021-10-08 08:14 | EKG ---
Test Date: 2021-10-06 Test Time: 00:06:38 Dental Patient Coordinator: LADY MEASUREMENT RESULTS: Intervals: Rate: 73 NM: 138 QRSD: 84 QT: 384 QTc: 423 [place]: P: 53 NM: 138 QRS: 71 T: 65 INTERPRETIVE STATEMENTS: Normal sinus rhythm Normal ECG Compared to ECG 07/06/2021 05:45:21 ST (T wave) deviation no longer present Electronically Signed On 10-08-21 08:12:15 PROJECT ACCOUNT MANAGER by Doron Kendall
--- NOTE | 2021-10-08 08:14 | EKG ---
Test Date: 2021-10-06 Test Time: 00:21:49 Electrician Crane Maintenance: CALLIE MEASUREMENT RESULTS: Intervals: Rate: 69 MA: 136 QRSD: 86 QT: 382 QTc: 409 [place]: P: 46 MA: 136 QRS: 71 T: 64 INTERPRETIVE STATEMENTS: Normal sinus rhythm Normal ECG Compared to ECG 07/06/2021 05:45:21 ST (T wave) deviation no longer present Electronically Signed On 10-08-21 08:12:14 BRONC BUSTER by Doron eKndall
== END 2021-10-06 07:42 | disposition home or self-care (01) ==
LOC: ER 00:04
DX: F25.9 Schizoaffective disorder, unspecified (principal); T43.625A Adverse effect of amphetamines, initial encounter; F17.210 Nicotine dependence, cigarettes, uncomplicated
CPT/HCPCS: 36415; 80048; 80076; 80307; 80320; 80329; 81003; 85025; 85610; 85730; 93005; 99284

== ENCOUNTER 2021-10-16 22:50 | Emergency (ER) | payer SELFPAY ==
--- OUTSIDE RECORDS SUMMARY | 2021-10-16 22:52 | XMS REPORT | Continuity of Care Document ---
:1990 Author Organization [facility] t Address [address] [place] [address] Care Team Providers Name Role Phone Elsa Elizalde MD Attending Clinician Elsa ELIZALDE Attending Clinician Unavailable Problems Condition Condition Condition Status Onset Resolution Last Treating Co mments Source Name Details Category Date Date Treatment Clinician Date No known No known Disease Unive rs active active ity of problems problems [facility] Allergies, Adverse Reactions, Alerts Allergy Allergy Status Severity Reaction(s) Onset Inactive Treating Comm ents Source Name Type Date Date Clinician No Known [facility]:00: s 00 No Known DA Active U 0 [facility] Drug 4-22 Allergie 00:00: s 00 NO KNOWN Drug Active [facility] Social History Social Habit Start Date Stop Date Quantity Comments Source Exposure to Not sure [facility] SARS-CoV-2 (event) Medica l Branch Sex Assigned At [address] 1990 [facility] 00:00:00 00:00:00 [facility] Smoking Status Start Date Stop Date Source Unknown if ever smoked [facility] Medications Ordered Filled Start Stop Current Ordering Indication Dosage Frequency Signature Comments Components Source Medication Medication Date Date Medication? Clinician (SIG) Name Name No known No Univers medications [facility] Vital Signs Vital Name Observation Time Observation Value Comments Source Systolic blood 2021-06-02 04:51:00 123 mm[Hg] [facility] Diastolic blood 2021-06-02 04:51:00 75 mm[Hg] [facility] Heart rate 2021-06-02 04:51:00 123 /min Universi ty [facility] Respiratory rate 2021-06-02 04:51:00 18 /min [facility] Oxygen saturation in 2021-06-02 04:51:00 95 /min University Arterial blood by [facility] Pulse oximetry Branch Body temperature 2021-06-02 03:52:00 37.22 Radha [facility] Body height 2021-06-02 03:52:00 [facility] Body weight 2021-06-02 03:52:00 77.111 [facility] BMI 2021-06-02 03:52:00 25.85 kg/m2 [facility] 02 Sat by Pulse 2021-03-11 03:15:25 97 [...] Weight 2021-03-08 21:35:11 2494.758\S\88 WEIGHT 2021-03-08 21:30:00 2.583301 kg HEIGHT 2021-03-08 21:30:00 5090.16 cm Body [...] Weight 2021-03-08 19:49:04 2494.758\S\88 WEIGHT 2021-03-08 19:45:00 2.038872 kg HEIGHT 2021-03-08 19:45:00 5090.16 cm Respiratory 2021-02-09 11:13:01 No respiratory distress /min Recent Weight 2021-02-09 11:13:01 N Loss/Gain 02 Sat by Pulse 2021-02-09 11:13:01 99 /min Oximetry Body Mass Index 2021-02-09 11:13:01 24.2 Height 2021-02-09 11:13:01 172.72\S\68 Pulse Rate 2021-02-09 11:13:01 65 /min Respiratory Rate 2021-02-09 11:13:01 18 /min Temperature 2021-02-09 11:13:01 36.5\S\97.7 Weight 2021-02-09 11:13:01 67679.187\S\2544 Weight Measurement 2021-02-09 11:13:01 Estimated by Method Patient Height 2021-02-09 01:10:48 172.72\S\68 Pulse Rate 2021-02-09 01:10:48 65 /min Respiratory Rate 2021-02-09 01:10:48 18 /min Temperature 2021-02-09 01:10:48 36.5\S\97.7 Weight 2021-02-09 01:10:48 84255.187\S\2544 Weight Measurement 2021-02-09 01:10:48 Estimated by Method [...] Temperature 2021-02-08 23:59:26 36.5\S\97.7 Weight 2021-02-08 23:59:26 99690.187\S\2544 Weight Measurement 2021-02-08 23:59:26 Estimated by Method Patient Respiratory 2021-02-08 23:49:14 No respiratory distress /min Recent Weight 2021-02-08 23:49:14 N Loss/Gain 02 Sat by Pulse 2021-02-08 23:49:14 99 /min Oximetry Body Mass Index 2021-02-08 23:49:14 24.2 Height 2021-02-08 23:49:14 172.72\S\68 Pulse Rate 2021-02-08 23:49:14 65 /min Respiratory Rate 2021-02-08 23:49:14 18 /min Temperature 2021-02-08 23:49:14 36.5\S\97.7 Weight 2021-02-08 23:49:14 12587.187\S\2544 Weight Measurement 2021-02-08 23:49:14 Estimated by Method Patient Respiratory 2021-02-08 22:39:45 No respiratory distress /min 02 Sat by Pulse 2021-02-08 22:39:45 99 /min Oximetry Body Mass Index 2021-02-08 22:39:45 24.2 Height 2021-02-08 22:39:45 172.72\S\68 Pulse Rate 2021-02-08 22:39:45 65 /min Respiratory Rate 2021-02-08 22:39:45 18 /min Temperature 2021-02-08 22:39:45 36.5\S\97.7 Weight 2021-02-08 22:39:45 93456.187\S\2544 Weight Measurement 2021-02-08 22:39:45 Estimated by Method Patient Respiratory 2021-02-08 21:58:37 No respiratory distress /min 02 Sat by Pulse 2021-02-08 21:58:37 99 /min Oximetry Body Mass Index 2021-02-08 21:58:37 24.2 Height 2021-02-08 21:58:37 172.72\S\68 Pulse Rate 2021-02-08 21:58:37 65 /min Respiratory Rate 2021-02-08 21:58:37 18 /min Temperature 2021-02-08 21:58:37 36.5\S\97.7 Weight 2021-02-08 21:58:37 32233.187\S\2544 Weight Measurement 2021-02-08 21:58:37 Estimated by Method Patient Respiratory 2021-02-08 21:58:07 No respiratory distress /min 02 Sat by Pulse 2021-02-08 21:58:07 99 /min Oximetry Body Mass Index 2021-02-08 21:58:07 24.2 Height 2021-02-08 21:58:07 172.72\S\68 Pulse Rate 2021-02-08 21:58:07 65 /min Respiratory Rate 2021-02-08 21:58:07 18 /min Temperature 2021-02-08 21:58:07 36.5\S\97.7 Weight 2021-02-08 21:58:07 37032.187\S\2544 Weight Measurement 2021-02-08 21:58:07 Estimated by Method Patient 02 Sat by Pulse 2021-02-08 20:33:27 99 /min Oximetry Body Mass Index 2021-02-08 20:33:27 24.2 Height 2021-02-08 20:33:27 172.72\S\68 Pulse Rate 2021-02-08 20:33:27 65 /min Respiratory Rate 2021-02-08 20:33:27 18 /min Temperature 2021-02-08 20:33:27 36.5\S\97.7 Weight 2021-02-08 20:33:27 36844.187\S\2544 Weight Measurement 2021-02-08 20:33:27 Estimated by Method Patient Pulse Rate 2021-02-08 20:23:46 65 /min Respiratory Rate 2021-02-08 20:23:46 18 /min Temperature 2021-02-08 20:23:46 36.5\S\97.7 Weight 2021-02-08 20:23:46 44510.187\S\2544 Weight Measurement 2021-02-08 20:23:46 Estimated by Method [...] Temperature 2021-02-08 19:45:33 36.5\S\97.7 Weight 2021-02-08 19:45:33 21683.187\S\2544 Weight Measurement 2021-02-08 19:45:33 Estimated by Method Patient 02 Sat by Pulse 2021-02-08 19:41:59 99 /min Oximetry Body Mass Index 2021-02-08 19:41:59 24.2 Height 2021-02-08 19:41:59 172.72\S\68 Pulse Rate 2021-02-08 19:41:59 65 /min Respiratory Rate 2021-02-08 19:41:59 18 /min Temperature 2021-02-08 19:41:59 36.5\S\97.7 Weight 2021-02-08 19:41:59 19108.187\S\2544 Weight Measurement 2021-02-08 19:41:59 Estimated by Method Patient 02 Sat by Pulse 2021-02-08 19:27:42 99 /min Oximetry Body Mass Index 2021-02-08 19:27:42 24.2 Height 2021-02-08 19:27:42 172.72\S\68 Pulse Rate 2021-02-08 19:27:42 65 /min Respiratory Rate 2021-02-08 19:27:42 18 /min Temperature 2021-02-08 19:27:42 36.5\S\97.7 Weight 2021-02-08 19:27:42 68830.187\S\2544 Weight Measurement 2021-02-08 19:27:42 Estimated by Method Patient WEIGHT 2021-02-08 19:19:00 72.103276 kg HEIGHT 2021-02-08 19:19:00 172.72 cm Procedures This patient has no known procedures. Encounters Start End Encounter Admission Attending Care Care Encounter Source Date/Time Date/Time Type Type Clinicians Facility Department ID 2021-06-01 2021-06-01 [id number] Univers 22:48:00 23:51:00 Fortino Hunter [place] [id number] anish [facility] [id number] [facility] [id number] [place] [id number] Branch 2021-06-01 2021-06-01 Emergency [facility] E[facility] [id number] Univers 22:48:00 22:48:00 FORTINO oconnell [facility] Results This patient has no known results.
[2021-10-17 02:19] LABS: Absolute Lymphocytes (CBC) 2.4 K/uL (0.7-4.9); Hematocrit 44.9 % (39.6-49.0); Lymphocytes % 34.3 % (15.3-44.8); MPV 9.1 fL (7.6-11.3); RBC Red Blood Cell Count 4.74 M/uL (4.33-5.43)
[2021-10-17 02:35] LABS: Protime INR 1.02
[2021-10-17 02:44] LABS: Urine Blood Trace-intact (Negative); Urine Glucose Negative (Negative); Urine Protein Negative (Negative); Urine Specific Gravity >=1.030 (1.005-1.030); Urine pH 5.5 (5.0-7.0)
[2021-10-17 02:45] LABS: Barbiturates NEGATIVE (NEGATIVE); Benzodiazepines NEGATIVE (NEGATIVE); Cocaine NEGATIVE (NEGATIVE); METHAMPHETAM POSITIVE (NEGATIVE); Methadone NEGATIVE (NEGATIVE); Opiates NEGATIVE (NEGATIVE); Phencyclidine NEGATIVE (NEGATIVE); THC Cannibis NEGATIVE (NEGATIVE)
[2021-10-17 02:45] LABS: ALT/SGPT 25 U/L (12-78); AST/SGOT 11 U/L (15-37); Albumin 3.7 g/dL (3.4-5.0); Alkaline Phosphatase 85 U/L (45-117); BUN Blood Urea Nitrogen 22 mg/dL (7-18); Bicarbonate 26 mmol/L (21-32); Bilirubin Direct < 0.1 mg/dL (0-0.2); Bilirubin Total 0.3 mg/dL (0.2-1.0); Creatine Phosphokinase 114 U/L (39-308); Glucose Level 89 mg/dL (74-106); Potassium 3.8 mmol/L (3.5-5.1); Protein, Total 6.8 g/dL (6.4-8.2); Sodium Level 141 mmol/L (136-145)
--- NOTE | 2021-10-17 06:08 | EDPHYS ---
Physician Documentation [facility] Name: Todd Schmid Age: 31 yrs Sex: Male : 1990 Arrival Date: 10/16/2021 Time: 22:53 Bed 17 Private MD: ELEN Physician River Palmer HPI: 10/17 01:43 This 31 yrs old Male presents to ER via EMS with complaints of MEDICATION REACTION. mh7 01:43 The patient presents to the emergency department after a known overdose, that was mh7 accidental. Context: Method: the patient has a confirmed or suspected ingestion, Olanzapine, Time: yesterday, About 6 to 7 hours prior to arrival, Extent: moderate ingestion, Took 3 olanzapine tablets from a prior prescription, dose unknown, the OD/poisoning occurred at at home, and was witnessed no one, Psychiatric history: the patient has a known psychiatric disorder, schizophrenia, Previous OD/poisoning history: none. Associated signs and symptoms: Pertinent positives: anxiety, Feels dehydrated, Pertinent negatives: apnea, auditory hallucinations, burning of skin, decreased level of consciousness, depression, diaphoresis, diarrhea, dizziness, incontinence, loss of consciousness, nausea, palpitations, shortness of breath, tearfulness, visual hallucinations, vomiting. Severity of symptoms: At their worst the symptoms were moderate yesterday, in the emergency department the symptoms have resolved and did so while in waiting room. Patient states that he took 3 of his olanzapine tablets from an old prescription. He does not know the dosage of each tablet. He states he took 2 tablets to help him stay awake because he had a lot to do. He denies any suicidal or homicidal ideation. He denies any auditory or visual hallucinations. He states that he felt dehydrated after taking the tablets. He denies any headache, fever, chest pain, abdominal pain, shortness of breath, nausea, vomiting, diarrhea, dizziness, numbness/tingling, or weakness.. Historical: - Allergies: 00:49 No Known Allergies; bb - Home Meds: 00:49 olanzapine oral [Active]; bb - PMHx: 00:49 Schizophrenia; bb - PSHx: 00:49 arm surgery; bb - Immunization history:: Adult Immunizations up to date. - Social history:: Smoking status: Patient reports the use of cigarette tobacco products, denies chronic smoking, but will smoke occasionally. ROS: 01:43 Constitutional: Negative for fever, chills, and weight loss, Eyes: Negative for injury, mh7 pain, redness, and discharge, ENT: Negative for injury, pain, and discharge, Neck: Negative for injury, pain, and swelling, Cardiovascular: Negative for chest pain, palpitations, and edema, Respiratory: Negative for shortness of breath, cough, wheezing, and pleuritic chest pain, Abdomen/GI: Negative for abdominal pain, nausea, vomiting, diarrhea, and constipation, Back: Negative for injury and pain, : Negative for injury, bleeding, discharge, and swelling, MS/Extremity: Negative for injury and deformity, Skin: Negative for injury, rash, and discoloration, Neuro: Negative for headache, weakness, numbness, tingling, and seizure, Psych: Negative for depression, anxiety, suicide ideation, homicidal ideation, and hallucinations, Allergy/Immunology: Negative for hives, rash, and allergies, Endocrine: Negative for neck swelling, polydipsia, polyuria, polyphagia, and marked weight changes, Hematologic/Lymphatic: Negative for swollen nodes, abnormal bleeding, and unusual bruising. Exam: 01:43 Head/Face: Normocephalic, atraumatic. Eyes: Pupils equal round and reactive to light, mh7 extra-ocular motions intact. Lids and lashes normal. Conjunctiva and sclera are non-icteric and not injected. Cornea within normal limits. Periorbital areas with no swelling, redness, or edema. ENT: Nares patent. No nasal discharge, no septal abnormalities noted. Tympanic membranes are normal and external auditory canals are clear. Oropharynx with no redness, swelling, or masses, exudates, or evidence of obstruction, uvula midline. Mucous membranes moist. Neck: Trachea midline, no thyromegaly or masses palpated, and no cervical lymphadenopathy. Supple, full range of motion without nuchal rigidity, or vertebral point tenderness. No Meningismus. Chest/axilla: Normal chest wall appearance and motion. Nontender with no deformity. No lesions are appreciated. Cardiovascular: Regular rate and rhythm with a normal S1 and S2. No gallops, murmurs, or rubs. Normal PMI, no JVD. No pulse deficits. Respiratory: Lungs have equal breath sounds bilaterally, clear to auscultation and percussion. No rales, rhonchi or wheezes noted. No increased work of breathing, no retractions or nasal flaring. Abdomen/GI: Soft, non-tender, with normal bowel sounds. No distension or tympany. No guarding or rebound. No evidence of tenderness throughout. Back: No spinal tenderness. No costovertebral tenderness. Full range of motion. Skin: Warm, dry with normal turgor. Normal color with no rashes, no lesions, and no evidence of cellulitis. MS/ Extremity: Pulses equal, no cyanosis. Neurovascular intact. Full, normal range of motion. Neuro: Awake and alert, GCS 15, oriented to person, place, time, and situation. Cranial nerves II-XII grossly intact. Motor strength 5/5 in all extremities. Sensory grossly intact. Cerebellar exam normal. Normal gait. 01:43 Constitutional: The patient appears in no acute distress, alert, awake, anxious. 01:43 Psych: Behavior/mood is cooperative, anxious, Affect is Oriented to person, place, time, Patient has no thoughts/intents to harm self or others. Judgement / Insight is normal. Memory is normal. Delusions/hallucinations are not present. Vital Signs: 00:45 BP 109 / 72; Pulse 68; Resp 16 S; Temp 97.6; Pulse Ox 100% on R/A; Weight 66.22 kg (R); bb Height 5 ft. 8 in. (172.72 cm) (R); 02:10 BP 99 / 70; Pulse 110; Resp 20; Temp 98.1; Pulse Ox 99% 0 lpm ; Weight 68.04 kg; Height sv1 5 ft. 8 in. (172.72 cm); 04:10 BP 105 / 59; Pulse 68; Resp 16; Temp 98.2; Pulse Ox 100% ; Pain 0/10; sv1 05:41 BP 110 / 45; Pulse 58; Resp 17; Pulse Ox 100% 0 lpm ; sv1 06:30 BP 95 / 58; Pulse 64; Resp 16; Pulse Ox 96% ; sv1 02:10 Body Mass Index 22.81 (68.04 kg, 172.72 cm) sv1 MDM: 06:03 Differential diagnosis: Ingestion/exposure to Olanzapine, methamphetamine polypharmacy, mh7 over medication, hypoglycemia. Data reviewed: vital signs, nurses notes, old medical records, lab test result(s), CBC, drug level(s), acetaminophen, alcohol, salicylate, urine drug screen, EKG. Data interpreted: Pulse oximetry: on room air is 100 %. Interpretation: normal. Counseling: I had a detailed discussion with the patient and/or guardian regarding: the historical points, exam findings, and any diagnostic results supporting the discharge/admit diagnosis, lab results, the need for outpatient follow up, an laboratory miller, a psychiatrist, to return to the emergency department if symptoms worsen or persist or if there are any questions or concerns that arise at home. Response to treatment: the patient's symptoms have resolved after treatment, the patient's blood pressure is in an acceptable range, mental status has returned to baseline, the patient no longer shows bradycardia, the patient is not short of breath, the patient is not tachycardic, the patient's pain is gone, the patient's temperature has normalized, the patient is now symptom free, patient is well hydrated. 06:07 Patient medically screened. [facility] 10/17 01:39 Order name: Acetaminophen [facility] 10/17 01:39 Order name: Basic Metabolic Panel; Complete Time: 03:40 [facility] 10/17 01:39 Order name: CBC with Diff; Complete Time: 03:40 [facility] 10/17 01:39 Order name: ETOH Level; Complete Time: 03:40 [facility] 10/17 01:39 Order name: Hepatic Function; Complete Time: 03:40 10/17 01:39 Order name: PT-INR; Complete Time: 03:40 [facility] 10/17 01:39 Order name: Ptt, Activated; Complete Time: 03:40 [facility] 10/17 01:39 Order name: Salicylate; Complete Time: 03:40 [facility] 10/17 01:39 Order name: Urine Drug Screen; Complete Time: 03:40 [facility] 10/17 01:39 Order name: EKG; Complete Time: 01:39 [facility] 10/17 01:39 Order name: Acetaminophen Level; Complete Time: 03:40 [facility] 10/17 02:16 Order name: Creatine Phosphokinase; Complete Time: 03:40 [facility] 10/17 02:43 Order name: Urine Dipstick-Ancillary; Complete Time: 03:40 [facility] 10/17 01:39 Order name: EKG - Nurse/Tech; Complete Time: 03:58 [facility] 10/17 01:39 Order name: IV Saline Lock; Complete Time: 02:09 [facility] 10/17 01:39 Order name: Labs collected and sent; Complete Time: 02:09 [facility] 10/17 01:39 Order name: Suicide Screening ([place]); Complete Time: 02:50 [facility] 10/17 01:39 Order name: Urine Dipstick-Ancillary (obtain specimen); Complete Time: 02:43 [facility] Administered Medications: No medications were administered Disposition Summary: 10/17/21 06:07 Discharge Ordered Location: Home [facility] Problem: new [facility] Symptoms: have improved [facility] Condition: Stable [facility] Diagnosis - Adverse effect of other psychotropic drugs [facility] - Methamphetamine abuse [facility] Followup: [facility] - With: Private Physician - When: 1 - 2 days - Reason: Worsening of condition, Recheck today's complaints, Continuance of care, Re-evaluation by your physician Followup: [facility] - With: Eligio Storey MD - When: 1 - 2 days - Reason: Worsening of condition, Recheck today's complaints Discharge Instructions: - Discharge Summary Sheet [facility] - Methamphetamines Use Disorder [facility] Forms: - Medication Reconciliation Form [facility] - Thank You Letter [facility] - Antibiotic Education [facility] - Prescription Opioid Use [facility] Signatures: Dispatcher [employer] Katerin Molina RN RN River Ward MD MD [facility] Corrections: (The following items were deleted from the chart) 02:16 01:42 CREATINE PHOSPHOKINASE+C.LAB.BRZ ordered. SHERRY POWELL
--- NOTE | 2021-10-17 06:08 | ER ---
Nurse's Notes [facility] Name: Todd Schmid Age: 31 yrs Sex: Male : 1990 Arrival Date: 10/16/2021 Time: 22:53 Bed 17 Private MD: Diagnosis: Adverse effect of other psychotropic drugs;Methamphetamine abuse Presentation: 10/17 00:45 Chief complaint: Patient states: he took 3 of his olanzipine and started having "side bb effects" thinks he is dehydrated and may need some electrolytes. Coronavirus screen: At this time, the client does not indicate any symptoms associated with coronavirus-19. Ebola Screen: No symptoms or risks identified at this time. Initial Sepsis Screen: Does the patient meet any 2 criteria? No. Patient's initial sepsis screen is negative. Does the patient have a suspected source of infection? No. Patient's initial sepsis screen is negative. Risk Assessment: Do you want to hurt yourself or someone else? Patient reports no desire to harm self or others. Onset of symptoms was October 17, 2021. 00:45 Method Of Arrival: EMS: [facility] bb 00:45 Acuity: MADHAV 4 bb Triage Assessment: 00:49 General: Appears in no apparent distress. slender, Behavior is cooperative, anxious. bb Pain: Denies pain. Neuro: Level of Consciousness is awake, alert, obeys commands, Oriented to person, place, time, situation. Cardiovascular: Capillary refill < 3 seconds Patient's skin is warm and dry. Respiratory: Respiratory effort is even, unlabored, Respiratory pattern is regular. GI: No signs and/or symptoms were reported involving the gastrointestinal system. Derm: Skin is pink, warm \\T\\ dry. Musculoskeletal: Circulation, motion, and sensation intact. Historical: - Allergies: 00:49 No Known Allergies; bb - Home Meds: 00:49 olanzapine oral [Active]; bb - PMHx: 00:49 Schizophrenia; bb - PSHx: 00:49 arm surgery; bb - Immunization history:: Adult Immunizations up to date. - Social history:: Smoking status: Patient reports the use of cigarette tobacco products, denies chronic smoking, but will smoke occasionally. Screenin:12 Abuse screen: Denies threats or abuse. Nutritional screening: No deficits noted. sv1 Tuberculosis screening: No symptoms or risk factors identified. Fall Risk None identified. Assessment: 02:13 Reassessment:. sv1 03:42 Reassessment: Called poison control recommended 6 hours of observation. Monitor for sv1 seizures, drowsiness tachycardia or fatigue. Fluids recommended . Case # [id number] contact Ami. . 04:14 Reassessment: Vital signs are stable . The patient states he feels better.. sv1 05:39 Reassessment: resting quietly. No complaints offered. . sv1 Psych: 02:47 [place] Suicide Severity Screening: In the past month, have you wished you were sv1 or wished you could go to sleep and not wake up? Patient responds "No." "In the past month, have you actually had any thoughts of killing yourself?" Patient responds "no." "In your lifetime, have you ever done anything, started to do anything, or prepared to do anything to end your life?" Patient responds "no.". Subjective: Patient's mood is elevated, Delusions are denied, Hallucinations are denied Having thoughts of none. Objective: Patient is cooperative, restless, Speech is rambling, pressured, Affect is appropriate, Patient has mutilated themselves by none. Interventions:. Safety Checks: screening. Pt denies substance abuse. Commitment: screening. Vital Signs: 00:45 BP 109 / 72; Pulse 68; Resp 16 S; Temp 97.6; Pulse Ox 100% on R/A; Weight 66.22 kg (R); bb Height 5 ft. 8 in. (172.72 cm) (R); 02:10 BP 99 / 70; Pulse 110; Resp 20; Temp 98.1; Pulse Ox 99% 0 lpm ; Weight 68.04 kg; Height sv1 5 ft. 8 in. (172.72 cm); 04:10 BP 105 / 59; Pulse 68; Resp 16; Temp 98.2; Pulse Ox 100% ; Pain 0/10; sv1 05:41 BP 110 / 45; Pulse 58; Resp 17; Pulse Ox 100% 0 lpm ; sv1 06:30 BP 95 / 58; Pulse 64; Resp 16; Pulse Ox 96% ; sv1 02:10 Body Mass Index 22.81 (68.04 kg, 172.72 cm) sv1 ED Course: 10/16 22:53 Patient arrived in ED. ja2 10/17 00:49 Triage completed. bb 00:49 Arm band placed on Patient placed in waiting room, Patient notified of wait time. bb 01:25 River Palmer MD is Attending Physician. 7 01:44 Delvis Arguelles, RN is Primary Nurse. sv1 02:08 Acetaminophen Level Sent. sv1 02:08 Acetaminophen Sent. sv1 02:09 Basic Metabolic Panel Sent. sv1 02:09 CBC with Diff Sent. sv1 02:09 ETOH Level Sent. sv1 02:09 Hepatic Function Sent. sv1 02:09 Salicylate Sent. sv1 02:12 Patient has correct armband on for positive identification. Bed in low position. Call sv1 light in reach. Side rails up X2. 04:10 EKG completed in triage. Results shown to MD. sv1 06:08 Eligio Storey MD is Referral Physician. 7 Administered Medications: No medications were administered Outcome: 06:07 Discharge ordered by MD. [facility] 06:33 Patient left the ED. sv1 Signatures: Katerin Rosenberg RN RN River Ward MD MD Joana Monroy [facility] Delvis Arguelles, RN RN sv1 Corrections: (The following items were deleted from the chart) 02:16 02:08 CREATINE PHOSPHOKINASE+C.LAB.BRZ drawn and sent. sv1 EDMS
[2021-10-17 07:00] VITALS: TEMP 98.2
[2021-10-17 07:03] VITALS: BP 95/58; O2SAT 96
== END 2021-10-17 06:33 | disposition home or self-care (01) ==
LOC: ER 22:50
DX: T43.95XA Adverse effect of unspecified psychotropic drug, initial encounter (principal); Y92.9 Unspecified place or not applicable; F15.10 Other stimulant abuse, uncomplicated; F17.210 Nicotine dependence, cigarettes, uncomplicated
CPT/HCPCS: 36415; 80048; 80076; 80307; 80320; 80329; 81003; 82550; 85025; 85610; 85730; 93005; 99284

== ENCOUNTER 2021-10-18 21:37 | Emergency (ER) | payer SELFPAY ==
--- OUTSIDE RECORDS SUMMARY | 2021-10-18 21:41 | XMS REPORT | Continuity of Care Document ---
:1990 Author Organization [facility] t Address [address] [place] [address] Care Team Providers Name Role Phone Elsa Elizalde MD Attending Clinician Elsa ELIZALDE Attending Clinician Unavailable Problems Condition Condition Condition Status Onset Resolution Last Treating Co mments Source Name Details Category Date Date Treatment Clinician Date No known No known Disease Unive rs active active ity of problems problems [facility] Allergies, Adverse Reactions, Alerts Allergy Allergy Status Severity Reaction(s) Onset Inactive Treating Comm ents Source Name Type Date Date Clinician No Known [facility]ie [facility]:00: s 00 No Known DA Active U 0 [facility] Drug 4-22 Allergie 00:00: s 00 NO KNOWN Drug Active [facility] Social History Social Habit Start Date Stop Date Quantity Comments Source Exposure to Not sure [facility] SARS-CoV-2 (event) Medica l Branch Sex Assigned At [birth year] [facility] 00:00:00 00:00:00 [facility] Smoking Status Start Date Stop Date Source Unknown if ever smoked [facility] Medications Ordered Filled Start Stop Current Ordering Indication Dosage Frequency Signature Comments Components Source Medication Medication Date Date Medication? Clinician (SIG) Name Name No known No Univers medications [facility] Vital Signs Vital Name Observation Time Observation Value Comments Source Systolic blood 2021-06-02 04:51:00 123 mm[Hg] [facility] Diastolic blood 2021-06-02 04:51:00 75 mm[Hg] [facility] Heart rate 2021-06-02 04:51:00 123 /min Universi ty [facility] Respiratory rate 2021-06-02 04:51:00 18 /min [facility] Oxygen saturation in 2021-06-02 04:51:00 95 /min University Arterial blood by [facility] Pulse oximetry Branch Body temperature 2021-06-02 03:52:00 37.22 Radha [facility] Body height 2021-06-02 03:52:00 172.7 cm [facility] Body weight 2021-06-02 03:52:00 77.111 kg [facility] BMI 2021-06-02 03:52:00 25.85 kg/m2 [facility] 02 Sat by Pulse 2021-03-11 03:15:25 [...] Weight 2021-03-08 21:35:11 2494.758\S\88 WEIGHT 2021-03-08 21:30:00 2.303194 kg HEIGHT 2021-03-08 21:30:00 5090.16 cm Body [...] Weight 2021-03-08 19:49:04 2494.758\S\88 WEIGHT 2021-03-08 19:45:00 2.361693 kg HEIGHT 2021-03-08 19:45:00 5090.16 cm Respiratory 2021-02-09 11:13:01 No respiratory distress /min Recent Weight 2021-02-09 11:13:01 N Loss/Gain 02 Sat by Pulse 2021-02-09 11:13:01 99 /min Oximetry Body Mass Index 2021-02-09 11:13:01 24.2 Height 2021-02-09 11:13:01 172.72\S\68 Pulse Rate 2021-02-09 11:13:01 65 /min Respiratory Rate 2021-02-09 11:13:01 18 /min Temperature 2021-02-09 11:13:01 36.5\S\97.7 Weight 2021-02-09 11:13:01 85675.187\S\2544 Weight Measurement 2021-02-09 11:13:01 Estimated by Method Patient Height 2021-02-09 01:10:48 172.72\S\68 Pulse Rate 2021-02-09 01:10:48 65 /min Respiratory Rate 2021-02-09 01:10:48 18 /min Temperature 2021-02-09 01:10:48 36.5\S\97.7 Weight 2021-02-09 01:10:48 05370.187\S\2544 Weight Measurement 2021-02-09 01:10:48 Estimated by Method [...] Temperature 2021-02-08 23:59:26 36.5\S\97.7 Weight 2021-02-08 23:59:26 92518.187\S\2544 Weight Measurement 2021-02-08 23:59:26 Estimated by Method Patient Respiratory 2021-02-08 23:49:14 No respiratory distress /min Recent Weight 2021-02-08 23:49:14 N Loss/Gain 02 Sat by Pulse 2021-02-08 23:49:14 99 /min Oximetry Body Mass Index 2021-02-08 23:49:14 24.2 Height 2021-02-08 23:49:14 172.72\S\68 Pulse Rate 2021-02-08 23:49:14 65 /min Respiratory Rate 2021-02-08 23:49:14 18 /min Temperature 2021-02-08 23:49:14 36.5\S\97.7 Weight 2021-02-08 23:49:14 63604.187\S\2544 Weight Measurement 2021-02-08 23:49:14 Estimated by Method Patient Respiratory 2021-02-08 22:39:45 No respiratory distress /min 02 Sat by Pulse 2021-02-08 22:39:45 99 /min Oximetry Body Mass Index 2021-02-08 22:39:45 24.2 Height 2021-02-08 22:39:45 172.72\S\68 Pulse Rate 2021-02-08 22:39:45 65 /min Respiratory Rate 2021-02-08 22:39:45 18 /min Temperature 2021-02-08 22:39:45 36.5\S\97.7 Weight 2021-02-08 22:39:45 70401.187\S\2544 Weight Measurement 2021-02-08 22:39:45 Estimated by Method Patient Respiratory 2021-02-08 21:58:37 No respiratory distress /min 02 Sat by Pulse 2021-02-08 21:58:37 99 /min Oximetry Body Mass Index 2021-02-08 21:58:37 24.2 Height 2021-02-08 21:58:37 172.72\S\68 Pulse Rate 2021-02-08 21:58:37 65 /min Respiratory Rate 2021-02-08 21:58:37 18 /min Temperature 2021-02-08 21:58:37 36.5\S\97.7 Weight 2021-02-08 21:58:37 84023.187\S\2544 Weight Measurement 2021-02-08 21:58:37 Estimated by Method Patient Respiratory 2021-02-08 21:58:07 No respiratory distress /min 02 Sat by Pulse 2021-02-08 21:58:07 99 /min Oximetry Body Mass Index 2021-02-08 21:58:07 24.2 Height 2021-02-08 21:58:07 172.72\S\68 Pulse Rate 2021-02-08 21:58:07 65 /min Respiratory Rate 2021-02-08 21:58:07 18 /min Temperature 2021-02-08 21:58:07 36.5\S\97.7 Weight 2021-02-08 21:58:07 97126.187\S\2544 Weight Measurement 2021-02-08 21:58:07 Estimated by Method Patient 02 Sat by Pulse 2021-02-08 20:33:27 99 /min Oximetry Body Mass Index 2021-02-08 20:33:27 24.2 Height 2021-02-08 20:33:27 172.72\S\68 Pulse Rate 2021-02-08 20:33:27 65 /min Respiratory Rate 2021-02-08 20:33:27 18 /min Temperature 2021-02-08 20:33:27 36.5\S\97.7 Weight 2021-02-08 20:33:27 70479.187\S\2544 Weight Measurement 2021-02-08 20:33:27 Estimated by Method Patient Pulse Rate 2021-02-08 20:23:46 65 /min Respiratory Rate 2021-02-08 20:23:46 18 /min Temperature 2021-02-08 20:23:46 36.5\S\97.7 Weight 2021-02-08 20:23:46 98186.187\S\2544 Weight Measurement 2021-02-08 20:23:46 Estimated by Method [...] Temperature 2021-02-08 19:45:33 36.5\S\97.7 Weight 2021-02-08 19:45:33 15761.187\S\2544 Weight Measurement 2021-02-08 19:45:33 Estimated by Method Patient 02 Sat by Pulse 2021-02-08 19:41:59 99 /min Oximetry Body Mass Index 2021-02-08 19:41:59 24.2 Height 2021-02-08 19:41:59 172.72\S\68 Pulse Rate 2021-02-08 19:41:59 65 /min Respiratory Rate 2021-02-08 19:41:59 18 /min Temperature 2021-02-08 19:41:59 36.5\S\97.7 Weight 2021-02-08 19:41:59 59129.187\S\2544 Weight Measurement 2021-02-08 19:41:59 Estimated by Method Patient 02 Sat by Pulse 2021-02-08 19:27:42 99 /min Oximetry Body Mass Index 2021-02-08 19:27:42 24.2 Height 2021-02-08 19:27:42 172.72\S\68 Pulse Rate 2021-02-08 19:27:42 65 /min Respiratory Rate 2021-02-08 19:27:42 18 /min Temperature 2021-02-08 19:27:42 36.5\S\97.7 Weight 2021-02-08 19:27:42 71663.187\S\2544 Weight Measurement 2021-02-08 19:27:42 Estimated by Method Patient WEIGHT 2021-02-08 19:19:00 72.396349 kg HEIGHT 2021-02-08 19:19:00 172.72 cm Procedures This patient has no known procedures. Encounters Start End Encounter Admission Attending Care Care Encounter Source Date/Time Date/Time Type Type Clinicians Facility Department ID 2021-06-01 2021-06-01 [id number] Univers 22:48:00 23:51:00 Fortino Hunter Dougherty [id number] anish [facility] [id number] [facility] [id number] [place] [id number] Branch 2021-06-01 2021-06-01 Emergency [facility] E[facility] [id number] Univers 22:48:00 22:48:00 FORTINO oconnell [facility] Results This patient has no known results.
--- NOTE | 2021-10-19 10:23 | ER ---
Nurse's Notes [facility] Name: Todd Schmid Age: 31 yrs Sex: Male : 1990 Arrival Date: 10/18/2021 Time: 21:53 Bed Waiting Private MD: Diagnosis: Anxiety disorder, unspecified Presentation: 10/19 08:54 Chief complaint: Patient states: "allergic reaction" to food or a medication last eo2 night, states he ate a can of beans and took lithium, and "I started getting a little over depressed, nauseousness, and didn't have endurance". Pt reports he vomited, "the depression turned to sickness so I thought it was the food and not the medication". Pt denies SI/HI, denies CP, SOB, SMITH, dizziness. Pt reports "I ate some food and I got rid of the nauseousness". Pt states he's going to be sent to rehab from [facility]. Coronavirus screen: Vaccine status: Patient reports receiving the 2nd dose of the covid vaccine. Client denies travel out of the [place] in the last 14 days. Ebola Screen: Patient negative for fever greater than or equal to 101.5 degrees Fahrenheit, and additional compatible Ebola Virus Disease symptoms Patient denies exposure to infectious person. Patient denies travel to an Ebola-affected area in the 21 days before illness onset. No symptoms or risks identified at this time. Onset: The symptoms/episode began/occurred yesterday. Anaphylaxis evaluation, no signs or symptoms of anaphylaxis were noted. Initial Sepsis Screen: Does the patient meet any 2 criteria? No. Patient's initial sepsis screen is negative. Does the patient have a suspected source of infection? No. Patient's initial sepsis screen is negative. Risk Assessment: Do you want to hurt yourself or someone else? Patient reports no desire to harm self or others. Onset of symptoms is unknown. 08:54 Method Of Arrival: Ambulatory eo2 08:54 Acuity: MADHAV 4 eo2 Triage Assessment: 09:01 General: Appears in no apparent distress. Behavior is anxious. Pain: Denies pain. eo2 Historical: - Allergies: 09:01 No Known Allergies; eo2 - Home Meds: 09:01 olanzapine Oral [Active]; eo2 - PMHx: 09:01 Schizophrenia; eo2 - PSHx: 09:01 arm surgery; eo2 - Immunization history:: Adult Immunizations up to date, Client reports receiving the 2nd dose of the Covid vaccine. - Social history:: Smoking status: Patient reports the use of cigarette tobacco products, "1 pack every 2-3 days", Patient uses alcohol, on a daily basis. Vital Signs: 08:54 BP 115 / 48; Pulse 71; Resp 17; Temp 97.9; Pulse Ox 100% ; Weight 67.4 kg; Height 5 ft. eo2 8 in. (172.72 cm); Pain 0/10; 08:54 Body Mass Index 22.59 (67.40 kg, 172.72 cm) eo2 ED Course: 10/18 21:53 Patient arrived in ED. jj6 10/19 09:01 Triage completed. eo2 09:51 Robert Robbins PA is PHCP. [facility] 09:51 Ruddy Schreiber MD is Attending Physician. jmm 11:12 Patient has correct armband on for positive identification. jl7 11:12 No provider procedures requiring assistance completed. Patient did not have IV access jl7 during this emergency room visit. Administered Medications: 11:16 Not Given (Other Intervention Used): Valium (diazepam) 2 mg PO once jl7 11:16 Drug: Valium (diazepam) 10 mg Route: PO; jl7 11:16 Follow up: Response: Medication administered at discharge. jl7 Outcome: 10:23 Discharge ordered by . jmm 11:12 Discharged to home ambulatory. jl7 11:12 Condition: stable 11:12 Discharge instructions given to patient, Instructed on discharge instructions, follow up and referral plans. Demonstrated understanding of instructions, follow-up care. 11:17 Patient left the ED. jl7 Signatures: Robert Robbins PA PA jmm Leal, Jahala, RN RN jl7 Chacha Boyd jj6 Karen Lynn, CARLA RN eo2
--- NOTE | 2021-10-19 10:23 | EDPHYS ---
Physician Documentation [facility] Name: Todd Schmid Age: 31 yrs Sex: Male : 1990 Arrival Date: 10/18/2021 Time: 21:53 Bed Waiting Private MD: ED Physician Ruddy Schreiber HPI: 10/19 09:56 This 31 yrs old Male presents to ER via Ambulatory with complaints of [facility] 09:56 The patient presents to the emergency department with anxiety. Onset: The jmm symptoms/episode began/occurred today. Associated signs and symptoms: Pertinent negatives: fever. This is a 31 year old male with a history of schizophrenia that presents to the ED with complaints of anxiety, this occurred before checking into rehab. Patient states feeling tension in his muscles and states he feels malnourished. Denies vomiting or diarrhea. . Historical: - Allergies: 09:01 No Known Allergies; eo2 - Home Meds: 09:01 olanzapine Oral [Active]; eo2 - PMHx: 09:01 Schizophrenia; eo2 - PSHx: 09:01 arm surgery; eo2 - Immunization history:: Adult Immunizations up to date, Client reports receiving the 2nd dose of the Covid vaccine. - Social history:: Smoking status: Patient reports the use of cigarette tobacco products, "1 pack every 2-3 days", Patient uses alcohol, on a daily basis. ROS: 09:56 Cardiovascular: Negative for chest pain, palpitations, and edema, Respiratory: Negative jmm for shortness of breath, cough, wheezing, and pleuritic chest pain. 09:56 Constitutional: Positive for fatigue. 09:56 Skin: 09:56 Psych: Positive for anxiety. 09:56 All other systems are negative. Exam: 09:56 Head/Face: atraumatic. Eyes: EOMI, no conjunctival erythema appreciated ENT: Moist jmm Mucus Membranes Neck: Trachea midline, Supple Chest/axilla: Normal chest wall appearance and motion. Cardiovascular: Regular rate and rhythm. No edema appreciated Respiratory: Normal respirations, no respiratory distress appreciated Abdomen/GI: Non distended, soft Back: Normal ROM Skin: General appearance color normal MS/ Extremity: Moves all extremities, no obvious deformities appreciated, no edema noted to the lower extremities Neuro: Awake and alert, normal gait 09:56 Constitutional: The patient appears alert, awake, anxious. 09:56 Psych: Behavior/mood is pleasant, cooperative, anxious, Patient has no thoughts/intents to harm self or others. Vital Signs: 08:54 BP 115 / 48; Pulse 71; Resp 17; Temp 97.9; Pulse Ox 100% ; Weight 67.4 kg; Height 5 ft. eo2 8 in. (172.72 cm); Pain 0/10; 08:54 Body Mass Index 22.59 (67.40 kg, 172.72 cm) eo2 MDM: 09:56 [facility] 10:21 Data reviewed: vital signs, nurses notes. Counseling: I had a detailed discussion with [facility] the patient and/or guardian regarding: the historical points, exam findings, and any diagnostic results supporting the discharge/admit diagnosis, the need for outpatient follow up, to return to the emergency department if symptoms worsen or persist or if there are any questions or concerns that arise at home. Administered Medications: 11:16 Not Given (Other Intervention Used): Valium (diazepam) 2 mg PO once jl7 11:16 Drug: Valium (diazepam) 10 mg Route: PO; jl7 11:16 Follow up: Response: Medication administered at discharge. jl7 Disposition: 18:01 Co-signature as Attending Physician, Ruddy Schreiber MD I agree with the assessment and rn plan of care. Attestation: The patient's history, exam findings, diagnostics, and a summary of any interventions or procedures was reviewed in detail with Robert MAYES. Disposition Summary: 10/19/21 10:23 Discharge [facility] Condition: Stable [facility] Diagnosis - Anxiety disorder, unspecified [facility] - With: Private Physician - When: 1 - 2 days - Reason: Recheck today's complaints, Continuance of care, Re-evaluation by your physician Discharge Instructions: - Discharge Summary Sheet jmm - Protein-Energy Malnutrition jmm - Generalized Anxiety Disorder, Adult jmm Forms: - Medication Reconciliation Form [facility] - Thank You Letter jmm - Antibiotic Education jmm - Prescription Opioid Use michael Signatures: Robert Robbins PA PA jmm Nieto, Roman, MD MD rn Leal, Jahala, RN RN jl7 Karen Lynn RN RN eo2
[2021-10-19] MEDS ORDERED: DIAZEPAM 5 MG TABLET ONE (11:15)
[2021-10-19 11:23] VITALS: BP 115/48; TEMP 97.9; O2SAT 100
== END 2021-10-19 11:17 | disposition home or self-care (01) ==
LOC: ER 21:37
DX: F41.9 Anxiety disorder, unspecified (principal); F17.210 Nicotine dependence, cigarettes, uncomplicated; F20.9 Schizophrenia, unspecified
CPT/HCPCS: 99283

== ENCOUNTER 2022-07-18 09:21 | Emergency (ER) | payer OTHER ==
--- OUTSIDE RECORDS SUMMARY | 2022-07-18 09:26 | XMS REPORT | Continuity of Care Document ---
:1990 Author Organization [facility] t Address [address] [place] [address] Care Team Providers Name Role Phone PCP, PATIENT DOES NOT HAVE A Primary Care Physician Unavaila ble TAI COLE Attending Clinician Unavailable Tai Sampson Attending Clinician Fortino Elizalde MD Attending Clinician FORTINO ELIZALDE Attending Clinician Unavailable Tete Sebastian Attending Clinician Unavailable Amando Farfan Attending Clinician Unavailable TAI COLE Admitting Clinician Unavailable Payers Payer Name Policy Type Policy Number Effective Date Expiration Date [facility] [id number] [id number] SHELTER 00:00:00 Problems Condition Condition Condition Status Onset Resolution Last Treating Co mments Source Name Details Category Date Date Treatment Clinician Date No known No known Disease Unive rs active active ity of problems problems [facility] Allergies, Adverse Reactions, Alerts Allergy Allergy Status Severity Reaction(s) Onset Inactive Treating Comm ents Source Name Type Date Date Clinician No Known DA Active U [facility] 7- Allergie 00:00: s 00 No Known DA Active U 0 [facility] Drug 5-20 Allergie 00:00: s 00 No Known DA Active U [facility] 4- Allergie 00:00: s 00 NO KNOWN Drug Active Univers ALLERGIE Class ity of S [facility] Social History Social Habit Start Date Stop Date Quantity Comments Source Exposure to 2022 2022-04-20 Not sure [facility] SARS-CoV-2 (event) 00:00:00 13:50:00 Medica l Branch Sex Assigned At [birth year] [facility] 00:00:00 00:00:00 Medical Branch Smoking Status Start Date Stop Date Source Unknown if ever smoked [facility] Medications Ordered Filled Start Stop Current Ordering Indication Dosage Frequency Signature Comments Components Source Medication Medication Date Date Medication? Clinician (SIG) Name Name acetaminoph 650mg 650 mg, U nivers en 04-20 Oral, ity of (TYLENOL) 20:15: 19:15 ONCE[place] 650 00 :00 dose, On Medic al mg 04/20/22 Branch at 1515, MARY No known No Univers medications 8-13 ity of 23:06: [address] No known [facility] Ordered Filled Immunization Date Status Comments Sour e Immunization Name Name Td 2022-04-20 Completed University 00:00:00 [facility] Vital Signs Vital Name Observation Time Observation Value Comments Source Heart rate 2022-04-20 19:24:00 56 /min General acute hospital Body temperature 2022-04-20 19:24:00 36.39 Radha [facility] Systolic blood 2022-04-20 18:52:00 112 mm[Hg] Univer sity of pressure [facility] Diastolic blood 2022-04-20 18:52:00 75 mm[facility]Hg[facility] Respiratory rate 2022-04-20 18:52:00 19 /min [facility] Body height 2022-04-20 18:52:00 172.7 cm General acute hospital Body weight 2022-04-20 18:52:00 70.308 kg General acute hospital BMI 2022-04-20 18:52:00 23.57 kg/m2 General acute hospital Oxygen saturation in 2022-04-20 18:52:00 99 /min [facility] Arterial blood by [facility] Pulse oximetry Branch Systolic blood 2021-06-02 04:51:00 123 mm[Hg] Univer sity of pressure [facility] Diastolic blood 2021-06-02 04:51:00 75 mm[Hg] Unive rsity of [facility] Heart rate 2021-06-02 04:51:00 123 /min General acute hospital Respiratory rate 2021-06-02 04:51:00 18 /min [facility] Oxygen saturation in 2021-06-02 04:51:00 95 /min [facility] Arterial blood by [facility] Pulse oximetry Branch Body temperature 2021-06-02 03:52:00 37.22 Radha [facility] Body height 2021-06-02 03:52:00 172.7 cm General acute hospital Body weight 2021-06-02 03:52:00 77.111 kg General acute hospital BMI 2021-06-02 03:52:00 25.85 kg/m2 General acute hospital 02 Sat by Pulse 2021-03-11 03:15:25 97 [...] Index 2021-03-08 21:35:11 0.0 Height 2021-03-08 21:35:11 5090.16\S Pulse Rate 2021-03-08 21:35:11 99 /min Respiratory Rate 2021-03-08 21:35:11 18 /min Temperature 2021-03-08 21:35:11 36.8\S\98.2 Weight 2021-03-08 21:35:11 2494.758\S\88 WEIGHT 2021-03-08 21:30:00 2.637589 kg HEIGHT 2021-03-08 21:30:00 5090.16 cm Body [...] Weight 2021-03-08 19:49:04 2494.758\S\88 WEIGHT 2021-03-08 19:45:00 2.873789 kg HEIGHT 2021-03-08 19:45:00 5090.16 cm Respiratory 2021-02-09 11:13:01 No respiratory distress /min Recent Weight 2021-02-09 11:13:01 N Loss/Gain 02 Sat by Pulse 2021-02-09 11:13:01 99 /min Oximetry Body Mass Index 2021-02-09 11:13:01 24.2 Height 2021-02-09 11:13:01 172.72\S\68 Pulse Rate 2021-02-09 11:13:01 65 /min Respiratory Rate 2021-02-09 11:13:01 18 /min Temperature 2021-02-09 11:13:01 36.5\S\97.7 Weight 2021-02-09 11:13:01 64570.187\S\2544 Weight Measurement 2021-02-09 11:13:01 Estimated by Method Patient Height 2021-02-09 01:10:48 172.72\S\68 Pulse Rate 2021-02-09 01:10:48 65 /min Respiratory Rate 2021-02-09 01:10:48 18 /min Temperature 2021-02-09 01:10:48 36.5\S\97.7 Weight 2021-02-09 01:10:48 68916.187\S\2544 Weight Measurement 2021-02-09 01:10:48 Estimated by Method [...] Temperature 2021-02-08 23:59:26 36.5\S\97.7 Weight 2021-02-08 23:59:26 73664.187\S\2544 Weight Measurement 2021-02-08 23:59:26 Estimated by Method Patient Respiratory 2021-02-08 23:49:14 No respiratory distress /min Recent Weight 2021-02-08 23:49:14 N Loss/Gain 02 Sat by Pulse 2021-02-08 23:49:14 99 /min Oximetry Body Mass Index 2021-02-08 23:49:14 24.2 Height 2021-02-08 23:49:14 172.72\S\68 Pulse Rate 2021-02-08 23:49:14 65 /min Respiratory Rate 2021-02-08 23:49:14 18 /min Temperature 2021-02-08 23:49:14 36.5\S\97.7 Weight 2021-02-08 23:49:14 13319.187\S\2544 Weight Measurement 2021-02-08 23:49:14 Estimated by Method Patient Respiratory 2021-02-08 22:39:45 No respiratory distress /min 02 Sat by Pulse 2021-02-08 22:39:45 99 /min Oximetry Body Mass Index 2021-02-08 22:39:45 24.2 Height 2021-02-08 22:39:45 172.72\S\68 Pulse Rate 2021-02-08 22:39:45 65 /min Respiratory Rate 2021-02-08 22:39:45 18 /min Temperature 2021-02-08 22:39:45 36.5\S\97.7 Weight 2021-02-08 22:39:45 10276.187\S\2544 Weight Measurement 2021-02-08 22:39:45 Estimated by Method Patient Respiratory 2021-02-08 21:58:37 No respiratory distress /min 02 Sat by Pulse 2021-02-08 21:58:37 99 /min Oximetry Body Mass Index 2021-02-08 21:58:37 24.2 Height 2021-02-08 21:58:37 172.72\S\68 Pulse Rate 2021-02-08 21:58:37 65 /min Respiratory Rate 2021-02-08 21:58:37 18 /min Temperature 2021-02-08 21:58:37 36.5\S\97.7 Weight 2021-02-08 21:58:37 52002.187\S\2544 Weight Measurement 2021-02-08 21:58:37 Estimated by Method Patient Respiratory 2021-02-08 21:58:07 No respiratory distress /min 02 Sat by Pulse 2021-02-08 21:58:07 99 /min Oximetry Body Mass Index 2021-02-08 21:58:07 24.2 Height 2021-02-08 21:58:07 172.72\S\68 Pulse Rate 2021-02-08 21:58:07 65 /min Respiratory Rate 2021-02-08 21:58:07 18 /min Temperature 2021-02-08 21:58:07 36.5\S\97.7 Weight 2021-02-08 21:58:07 00405.187\S\2544 Weight Measurement 2021-02-08 21:58:07 Estimated by Method Patient 02 Sat by Pulse 2021-02-08 20:33:27 99 /min Oximetry Body Mass Index 2021-02-08 20:33:27 24.2 Height 2021-02-08 20:33:27 172.72\S\68 Pulse Rate 2021-02-08 20:33:27 65 /min Respiratory Rate 2021-02-08 20:33:27 18 /min Temperature 2021-02-08 20:33:27 36.5\S\97.7 Weight 2021-02-08 20:33:27 15182.187\S\2544 Weight Measurement 2021-02-08 20:33:27 Estimated by Method Patient Pulse Rate 2021-02-08 20:23:46 65 /min Respiratory Rate 2021-02-08 20:23:46 18 /min Temperature 2021-02-08 20:23:46 36.5\S\97.7 Weight 2021-02-08 20:23:46 54119.187\S\2544 Weight Measurement 2021-02-08 20:23:46 Estimated by Method [...] Temperature 2021-02-08 19:45:33 36.5\S\97.7 Weight 2021-02-08 19:45:33 82281.187\S\2544 Weight Measurement 2021-02-08 19:45:33 Estimated by Method Patient 02 Sat by Pulse 2021-02-08 19:41:59 99 /min Oximetry Body Mass Index 2021-02-08 19:41:59 24.2 Height 2021-02-08 19:41:59 172.72\S\68 Pulse Rate 2021-02-08 19:41:59 65 /min Respiratory Rate 2021-02-08 19:41:59 18 /min Temperature 2021-02-08 19:41:59 36.5\S\97.7 Weight 2021-02-08 19:41:59 77240.187\S\2544 Weight Measurement 2021-02-08 19:41:59 Estimated by Method Patient 02 Sat by Pulse 2021-02-08 19:27:42 99 /min Oximetry Body Mass Index 2021-02-08 19:27:42 24.2 Height 2021-02-08 19:27:42 172.72\S\68 Pulse Rate 2021-02-08 19:27:42 65 /min Respiratory Rate 2021-02-08 19:27:42 18 /min Temperature 2021-02-08 19:27:42 36.5\S\97.7 Weight 2021-02-08 19:27:42 41435.187\S\2544 Weight Measurement 2021-02-08 19:27:42 Estimated by Method Patient WEIGHT 2021-02-08 19:19:00 72.086658 kg HEIGHT 2021-02-08 19:19:00 172.72 cm Procedures Procedure Date / Time Performed Performing Clinician [facility] e ED LACERATION REPAIR 2022-04-20 20:07:00 Tai Cole versity [facility] [place] 2022-04-20 19:06:25 Tai Cole [facility] MAXILLOFACIAL/MANDIBLE [facility] [place] [facility] CONTRAST CT TRAUMA HEAD WO 2022-04-20 19:06:25 [facility] Encounters Start End Encounter Admission Attending Care Care Encounter Source Date/Time Date/Time Type Type Clinicians Facility Department ID 2021-02-08 Inpatient [facility] [id number] [facility] 18:52:00 32 2022-04-20 2022-04-20 [facility] ERT [id number] Univers 13:54:00 15:22:00 TAI it y [facility] 2022-04-20 2022-04-20 [id number] Univers 13:54:00 15:22:00 Tai MORRIS [id number] [facility] [id number] [facility] [id number] [address] 2021-06-01 2021-06-01 Emergency Critical access hospital [id number] Univers 22:48:00 23:51:00 [facility] [place] [id number] ity of [place] [id number] [facility] [id number] [address] 2021-06-01 2021-06-01 Emergency X [facility] ERT [id number] Univers 22:48:00 22:48:00 FORTINO oconnell [facility] 2021-04-20 2021-04-20 Emergency Emergency [place], [facility] [id number] [facility] 06:54:00 12:54:00 Chrystan 25 2021-04-20 2021-04-20 Emergency [facility] [id number] [facility] 06:54:00 06:54:00 25 2021-04-20 2021-04-20 Emergency Emergency [place], [facility] [id number] [facility] 03:54:00 06:28:00 Lukuman 86 2021-03-08 2021-03-08 Emergency Emergency [place], [facility] [id number] [facility] 19:26:00 21:44:00 Lukuman 61 2021-03-08 2021-03-08 Emergency [facility] [id number] [facility] 19:26:00 19:26:00 61 2021-02-08 2021-02-08 Emergency [facility] [id number] [facility] 18:52:00 18:52:00 32 Results Test Description Test Time Test Comments Results Result Comments Source UC, Urine Culture 2021-04-20 09:45:00 Test Item Value Reference Range Interpretation Comme nts UC, Urine Culture (test code = UC) NO GROWTH AFTER 48 HOURS Complete Blood Count Auto [id number] 08:33:00 Test Item Value Reference Range Interpretation Comments White Blood Count (test code = 9.0 x10 3/uL 4.4-10.5 N WBCT) Red Blood Count (test code = 4.41 x10 6/uL 4.10-5.70 N RBC) Hemoglobin (test code = HGBT) 13.8 g/dL 13.4-17.4 N Hematocrit (test code = HCTT) 40.8 % 38.7-52.0 N Mean Corpuscular Volume (test 92.50 fL 80.00-100.00 N code = MCV) Mean Corpuscular Hemoglobin 31.3 pg 27.0-32.5 N (test code = MCH) Mean Corpuscular HGB Conc 33.80 g/dL 32.00-37.50 N (test code = MCHC) RDW Coefficient of Variation 11.8 % 11.5-14.5 N (test code = RDWCV) Platelet Count (test code = 220.0 x10 3/uL 140.0-440.0 N PLTT) Mean Platelet Volume (test 10.4 fL code = MPV) Immature Granulocytes % (Auto) 0.2 % 0.0-5.0 N (test code = IMMGRAN%) Neutrophils % (Auto) (test 50.8 % 36.0-70.0 N code = NE%) Lymphocytes % (Auto) (test 34.7 % 12.0-44.0 N code = LY%) Monocytes % (Auto) (test code 8.7 % 0.0-11.0 N = MO%) Eosinophils % (Auto) (test 4.8 % 0.0-7.0 N code = EO%) Basophils % (Auto) (test code 0.8 % 0.0-2.0 N = BA%) Immature Granulocytes # (Auto) 0.02 x10 3/uL (test code = IMMGRAN#) Neutrophils # (Auto) (test 4.6 x10 3/uL 1.6-7.4 N code = NE#) Lymphocytes # (Auto) (test 3.12 x10 3/uL 0.50-4.60 N code = LY#) Monocytes # (Auto) (test code 0.78 x10 3/uL 0.00-1.20 N = MO#) Eosinophils # (Auto) (test 0.43 x10 3/uL 0.00-0.74 N code = EO#) Basophils # (Auto) (test code 0.07 x10 3/uL 0.00-0.21 N = BA#) nRBC Abs (test code = NRBCA) 0 nRBC Pct (test code = NRBCP) 0 % Drug Screen,[id number] 08:33:00 Test Item Value Reference Range Interpretation Comments PCP Phencyclidine Negative Negative Screen,Urine (test code = PCPU) Amphetamine Positive Negative A Confirmation by GC/MS Screen,Urine (test code not routinely = AMPU) performed. Ifconfirmation is required, an or pipe must be placed. Methadone Screen,Urine Negative Negative (test code = METHU) Opiate Screen,Urine Negative Negative (test code = UOPIS) Barbituates Negative Negative Screen,Urine (test code = BARBU) Benzodiazepines Negative Negative Screen,Urine (test code = UBENZS) Cocaine Screen,Urine Positive Negative A (test code = UCOCS) Cannabinoid Negative Negative Screen,Urine (test code = UTHCS) Propoxyphene Screen, Negative Negative Urine (test code = UPROP) UA, Urinalysis Rflx Cult/[id number] 08:33:00 Test Item Value Reference Range Interpretation Comments Color,Urine (test code = Yellow Y UCOL) Clarity,Urine (test code = Slightly Cloudy Clear A UCLAR) PH,Urine (test code = 5.5 5.5-8.5 UPH.XX) Specific [place],Urine >= 1.030 1.005-1.030 N (test code = USG) Blood,Urine (test code = Small cells/uL Negative A UBLD) Protein,Urine (test code = Negative mg/dL Negative UPRO) Glucose,Urine (UA) (test Negative mg/dL Negative code = UGLU) Ketones,Urine (test code = Trace mg/dL Negative A UKET) Nitrate,Urine (test code = Positive Negative A UNIT) Bilirubin,Urine (test code Negative mg/dL Negative = UBIL) Urobilinogen,Urine (test 0.2 mg/dL Negative code = UURO) Leukocyte Esterase,Urine Negative cells/uL Negative (test code = ULEU) Comprehensive Metabolic [id number] 08:33:00 Test Item Value Reference Range Interpretation Comments SODIUM (test code = NA) 142.0 mmol/L 136.0-145.0 N Potassium,K (test code = K) 4.2 mmol/L 3.0-5.1 N Chloride (test code = CL) 111 mmol/L 98-107 H Carbon Dioxide (test code = 25 mmol/L 20-31 N CO2) Anion Gap (test code = GAP) 6 mmol/L 5-15 N Blood Urea Nitrogen (test code 21 mg/dL 9-23 N = BUN) Creatinine (test code = CREATT) 1.00 mg/dL 0.55-1.02 N Creatinine Clr Calc Pharmacy 105.45 mL/min (test code = CRCLPHA) Estimated GFR ( Hermila > 60 mL/min/1.73m2 (test code = EGFRAA) Estimated GFR (Non Afr Hermila > 60 mL/min/1.73m2 (test code = EGFRNAA) BUN/Creatinine Ratio (test code 21 ratio 10-20 H = BCRATIO) Glucose (test code = GLU) 89 mg/dL 74-106 N Osmolality,Calculated (test 295.5 code = OSMOC) Calcium (test code = CA) 9.8 mg/dL 8.3-10.6 N Bilirubin,Total (test code = 0.7 mg/dL 0.2-1.1 N BILIT) Aspartate Amino Transferase 33 U/L 0-34 N (test code = AST) Alanine Aminotransferase (test 27 U/L 10-49 N code = ALT) Total Protein (test code = TP) 6.2 g/dL 5.7-8.2 N Albumin Level (test code = ALB) 4.5 g/dL 3.2-4.8 N Globulin (test code = GLOB) 1.7 mg/dL 2.3-3.5 L Albumin/Globulin Ratio (test 2.6 ratio 0.8-2.0 H code = AGRATIO) Alkaline Phosphatase (test code 70 U/L 46-116 N = ALP) Ethanol [id number] 08:33:00 Test Item Value Reference Range Interpretation Comments Ethanol (test code = ETOH) < 3 mg/dL Urine [id number] 08:33:00 Test Item Value Reference Range Interpretation Comments RBC,Urine (test code = 0-1 /HPF None Seen URBC.XX) WBC,Urine (test code = 0-1 /HPF None Seen UWBC.XX) Squamous Epithelial Occasional /HPF None Seen Cell,Urine (test code = USQEPI.XX) Amorphous Crystals,Urine Moderate /HPF None Seen A (test code = UAMSE) Bacteria,Urine (test code = Trace /HPF None Seen A UBACT) Coronavirus PCR, COVID19 [id number] 08:28:00 Test Item Value Reference Range Interpretation Comments Coronavirus PCR, For use under Emergency COVID19 Rapid (test Use Authorization (EUA) code = SARSCOV2) only. Coronavirus PCR, Reference Range: COVID19 Rapid (test Negative code = PVYIDAO00.1) SARS-CoV-2 PCR Result: Negative by PCR (test code = SARS-CoV-2 PCR Result:) COVID-19 Status: AsymptomaticComplete Blood Count Auto [id number] 21:00:00 Test Item Value Reference Range Interpretation Comments White Blood Count (test code = 11.8 x10 3/uL 4.4-10.5 H WBCT) Red Blood Count (test code = 5.00 x10 6/uL 4.10-5.70 N RBC) Hemoglobin (test code = HGBT) 15.7 g/dL 13.4-17.4 N Hematocrit (test code = HCTT) 45.9 % 38.7-52.0 N Mean Corpuscular Volume (test 91.80 fL 80.00-100.00 N code = MCV) Mean Corpuscular Hemoglobin 31.4 pg 27.0-32.5 N (test code = MCH) Mean Corpuscular HGB Conc 34.20 g/dL 32.00-37.50 N (test code = MCHC) RDW Coefficient of Variation 11.9 % 11.5-14.5 N (test code = RDWCV) Platelet Count (test code = 263.0 x10 3/uL 140.0-440.0 N PLTT) Mean Platelet Volume (test 11.1 fL code = MPV) Immature Granulocytes % (Auto) 0.5 % 0.0-5.0 N (test code = IMMGRAN%) Neutrophils % (Auto) (test 51.7 % 36.0-70.0 N code = NE%) Lymphocytes % (Auto) (test 32.6 % 12.0-44.0 N code = LY%) Monocytes % (Auto) (test code 7.6 % 0.0-11.0 N = MO%) Eosinophils % (Auto) (test 6.9 % 0.0-7.0 N code = EO%) Basophils % (Auto) (test code 0.7 % 0.0-2.0 N = BA%) Immature Granulocytes # (Auto) 0.06 x10 3/uL (test code = IMMGRAN#) Neutrophils # (Auto) (test 6.1 x10 3/uL 1.6-7.4 N code = NE#) Lymphocytes # (Auto) (test 3.84 x10 3/uL 0.50-4.60 N code = LY#) Monocytes # (Auto) (test code 0.90 x10 3/uL 0.00-1.20 N = MO#) Eosinophils # (Auto) (test 0.81 x10 3/uL 0.00-0.74 H code = EO#) Basophils # (Auto) (test code 0.08 x10 3/uL 0.00-0.21 N = BA#) nRBC Abs (test code = NRBCA) 0 nRBC Pct (test code = NRBCP) 0 % Complete Blood Count Auto [id number] 20:55:00 Test Item Value Reference Range Interpretation Comments White Blood Count (test code = 11.4 x10 3/uL 4.4-10.5 H WBCT) Red Blood Count (test code = 4.86 x10 6/uL 4.10-5.70 N RBC) Hemoglobin (test code = HGBT) 15.3 g/dL 13.4-17.4 N Hematocrit (test code = HCTT) 46.8 % 38.7-52.0 N Mean Corpuscular Volume (test 96.30 fL 80.00-100.00 N code = MCV) Mean Corpuscular Hemoglobin 31.5 pg 27.0-32.5 N (test code = MCH) Mean Corpuscular HGB Conc 32.70 g/dL 32.00-37.50 N (test code = MCHC) RDW Coefficient of Variation 11.7 % 11.5-14.5 N (test code = RDWCV) Platelet Count (test code = 214.0 x10 3/uL 140.0-440.0 N PLTT) Mean Platelet Volume (test 10.7 fL code = MPV) Immature Granulocytes % (Auto) 0.3 % 0.0-5.0 N (test code = IMMGRAN%) Neutrophils % (Auto) (test 62.0 % 36.0-70.0 N code = NE%) Lymphocytes % (Auto) (test 28.2 % 12.0-44.0 N code = LY%) Monocytes % (Auto) (test code 5.2 % 0.0-11.0 N = MO%) Eosinophils % (Auto) (test 3.9 % 0.0-7.0 N code = EO%) Basophils % (Auto) (test code 0.4 % 0.0-2.0 N = BA%) Immature Granulocytes # (Auto) 0.03 x10 3/uL (test code = IMMGRAN#) Neutrophils # (Auto) (test 7.1 x10 3/uL 1.6-7.4 N code = NE#) Lymphocytes # (Auto) (test 3.20 x10 3/uL 0.50-4.60 N code = LY#) Monocytes # (Auto) (test code 0.59 x10 3/uL 0.00-1.20 N = MO#) Eosinophils # (Auto) (test 0.44 x10 3/uL 0.00-0.74 N code = EO#) Basophils # (Auto) (test code 0.04 x10 3/uL 0.00-0.21 N = BA#) nRBC Abs (test code = NRBCA) 0 nRBC Pct (test code = NRBCP) 0 % Comprehensive Metabolic [id number] 20:55:00 Test Item Value Reference Range Interpretation Comments SODIUM (test code = NA) 141.0 mmol/L 136.0-145.0 N Potassium,K (test code = K) 3.4 mmol/L 3.0-5.1 N Chloride (test code = CL) 105 mmol/L 98-107 N Carbon Dioxide (test code = CO2) 30 mmol/L 20-31 N Anion Gap (test code = GAP) 6 mmol/L 5-15 N Blood Urea Nitrogen (test code = 15 mg/dL 9-23 N BUN) Creatinine (test code = CREATT) 1.07 mg/dL 0.55-1.02 H Creatinine Clr Calc Pharmacy 99.44 mL/min (test code = CRCLPHA) Estimated GFR ( Hermila > 60 mL/min/1.73m2 (test code = EGFRAA) Estimated GFR (Non Afr Hermila > 60 mL/min/1.73m2 (test code = EGFRNAA) BUN/Creatinine Ratio (test code 14 ratio 10-20 N = BCRATIO) Glucose (test code = GLU) 69 mg/dL 74-106 L Osmolality,Calculated (test code 290.3 = OSMOC) Calcium (test code = CA) 9.2 mg/dL 8.3-10.6 N Bilirubin,Total (test code = 0.4 mg/dL 0.2-1.1 N BILIT) Aspartate Amino Transferase 17 U/L 0-34 N (test code = AST) Alanine Aminotransferase (test 17 U/L 10-49 N code = ALT) Total Protein (test code = TP) 6.3 g/dL 5.7-8.2 N Albumin Level (test code = ALB) 4.4 g/dL 3.2-4.8 N Globulin (test code = GLOB) 1.9 mg/dL 2.3-3.5 L Albumin/Globulin Ratio (test 2.3 ratio 0.8-2.0 H code = AGRATIO) Alkaline Phosphatase (test code 78 U/L 46-116 N = ALP) Ethanol [id number] 20:55:00 Test Item Value Reference Range Interpretation Comments Ethanol (test code = ETOH) < 3 mg/dL Coronavirus PCR, COVID19 [id number] 20:52:00 Test Item Value Reference Range Interpretation Comments Coronavirus PCR, For use under Emergency COVID19 Rapid (test Use Authorization (EUA) code = SARSCOV2) only. Coronavirus PCR, Reference Range: COVID19 Rapid (test Negative code = RXYMILV26.1) SARS-CoV-2 PCR Result: Negative by PCR (test code = SARS-CoV-2 PCR Result:) COVID-19 Status: AsymptomaticDrug Screen,[id number] 20:50:00 Test Item Value Reference Range Interpretation Comments PCP Phencyclidine Screen,Urine (test Negative Negative code = PCPU) Amphetamine Screen,Urine (test code Negative Negative = AMPU) Methadone Screen,Urine (test code = Negative Negative METHU) Opiate Screen,Urine (test code = Negative Negative UOPIS) Barbituates Screen,Urine (test code Negative Negative = BARBU) Benzodiazepines Screen,Urine (test Negative Negative code = UBENZS) Cocaine Screen,Urine (test code = Negative Negative UCOCS) Cannabinoid Screen,Urine (test code Negative Negative = UTHCS) Propoxyphene Screen, Urine (test Negative Negative code = UPROP)
[2022-07-18] MEDS ORDERED: IBUPROFEN 200 MG TAB PO ONE (09:39)
[2022-07-18] MEDS ORDERED: CYCLOBENZAPRINE 10 MG TAB ONE (09:39)
--- NOTE | 2022-07-18 10:16 | RAD REPORT ---
EXAM DESCRIPTION: RAD - Shoulder Left 2 View - 07/18/2022 10:04 am CLINICAL HISTORY: PAIN COMPARISON: None FINDINGS/IMPRESSION: No acute fracture. No malalignment. No significant focal degenerative changes.
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
--- NOTE | 2022-07-18 10:22 | ER ---
Nurse's Notes [facility] Name: Todd Schmid Age: 32 yrs Sex: Male : 1990 Arrival Date: 07/18/2022 Time: 09:23 Bed 18 Private MD: Diagnosis: Pain in left shoulder Presentation: 07/18 09:25 Chief complaint: Patient states: left shoulder pain for 5 weeks stating it is affecting mb8 his sleep. Coronavirus screen: Vaccine status: Patient reports being unvaccinated. Ebola Screen: Patient negative for fever greater than or equal to 101.5 degrees Fahrenheit, and additional compatible Ebola Virus Disease symptoms Patient denies exposure to infectious person. Patient denies travel to an Ebola-affected area in the 21 days before illness onset. Initial Sepsis Screen: Does the patient meet any 2 criteria? No. Patient's initial sepsis screen is negative. Does the patient have a suspected source of infection? No. Patient's initial sepsis screen is negative. Risk Assessment: Do you want to hurt yourself or someone else? Patient reports no desire to harm self or others. Onset of symptoms is unknown. 09:25 Method Of Arrival: EMS mb8 09:25 Acuity: MADHAV 5 mb8 Triage Assessment: 09:28 General: Appears in no apparent distress. Behavior is anxious. mb8 Historical: - Allergies: 09:27 No Known Allergies; mb8 - PMHx: 09:27 Schizophrenia; mb8 - PSHx: 09:27 arm surgery; mb8 - Social history:: Smoking status: Patient reports the use of cigarette tobacco products. Screenin: Abuse screen: Denies threats or abuse. Denies injuries from another. Nutritional mb8 screening: No deficits noted. Tuberculosis screening: No symptoms or risk factors identified. Fall Risk None identified. Assessment: 09:28 Pain: Complains of pain in anterior aspect of left shoulder Pain does not radiate. Pain mb8 currently is 10 out of 10 on a pain scale. Quality of pain is described as aching, Pain began 5 weeks ago. Musculoskeletal: Circulation, motion, and sensation intact. Capillary refill < 3 seconds, Range of motion: intact in all extremities, Reports pain in anterior aspect of left shoulder. Vital Signs: 09:25 BP 126 / 78; Pulse 103; Resp 18; Temp 98.1; Pulse Ox 99% ; Pain 10/10; mb8 10:15 BP 129 / 88; Pulse 95; Resp 19; Temp 98.8; Pulse Ox 99% ; Pain 8/10; mb8 ED Course: 09:23 Patient arrived in ED. mb8 09:25 Francisco Javier Roberts, RN is Primary Nurse. mb8 09:26 Navin Vora NP is PHCP. pm1 09:26 Osman Shah MD is Attending Physician. pm1 09:27 Triage completed. mb8 09:28 Arm band placed on. mb8 09:29 Patient has correct armband on for positive identification. Placed in gown. Bed in low mb8 position. Call light in reach. Side rails up X2. Client placed on continuous cardiac and pulse oximetry monitoring. NIBP monitoring applied. 09:29 No provider procedures requiring assistance completed. Patient did not have IV access mb8 during this emergency room visit. 10:06 Shoulder Left (2 View) XRAY In Process Unspecified. EDMS Administered Medications: 09:41 Drug: Ibuprofen 600 mg Route: PO; mb8 10:20 Follow up: Response: No adverse reaction; Pain is decreased mb8 09:41 Drug: Flexeril (cyclobenzaprine) 10 mg Route: PO; mb8 10:20 Follow up: Response: No adverse reaction; Pain is decreased mb8 Medication: 09:29 VIS not applicable for this client. mb8 Outcome: 10:22 Discharge ordered by . pm1 10:35 Discharged to home ambulatory. mb8 10:35 Condition: stable 10:35 Discharge instructions given to patient, Instructed on discharge instructions, follow up and referral plans. no drinking with medication, no driving heavy equipment, medication usage, Demonstrated understanding of instructions, follow-up care, medications, Prescriptions given X 2. 10:37 Patient left the ED. mb8 Signatures: Dispatcher [employer] EDMS Navin Vora NP CONTRACT ATTORNEY pm1 Francisco Javier Roberts, RN RN mb8 Corrections: (The following items were deleted from the chart) 10:35 10:35 BP 129 / 88; Pulse 95bpm; Resp 19bpm; Pulse Ox 99%; Temp 98.8F; Pain 8/10; mb8 mb8
[2022-07-19 17:16] VITALS: O2SAT 99
[2022-07-19 17:18] VITALS: BP 129/88; TEMP 98.8
== END 2022-07-18 10:37 | disposition home or self-care (01) ==
LOC: ER 09:21
DX: M25.512 Pain in left shoulder (principal); Z72.0 Tobacco use
CPT/HCPCS: 99284

== ENCOUNTER 2023-04-16 22:02 | Emergency (ER) | payer OTHER ==
--- OUTSIDE RECORDS SUMMARY | 2023-04-16 22:06 | XMS REPORT | Continuity of Care Document ---
:1990 Author Organization [facility] t Address [address] [place] [address]. [address] [place] [address] Care Team Providers Name Role Phone PCP, PATIENT DOES NOT HAVE A Primary Care Physician Unavaila Landry Carvalho Attending Clinician Unavailable SILVANA COLE Attending Clinician Unavailable Silvana Sampson Attending Clinician Jayy Elizalde MD Attending Clinician JAYY ELIZALDE Attending Clinician Unavailable Tete Sebastian Attending Clinician Unavailable Amando Farfan Attending Clinician Unavailable SILVANA COLE Admitting Clinician Unavailable Payers Payer Name Policy Type Policy Number Effective Date Expiration Date [facility] [id number] [id number] PENITENTIARY 00:00:00 Problems Condition Condition Condition Status Onset Resolution Last Treating Co mments Source Name Details Category Date Date Treatment Clinician Date No known No known Disease Unive rs active active ity of problems problems [facility] Allergies, Adverse Reactions, Alerts Allergy Allergy Status Severity Reaction(s) Onset Inactive Treating Comm ents Source Name Type Date Date Clinician No Known DA Active U 2022-0 [facility] 02-05 Allergie 00:00: s 00 No Known DA Active U 2022-0 [facility] - Allergie 00:00: s 00 No Known DA Active U 2020-0 [facility] 04-20 Allergie 00:00: s 00 No Known DA Active U 2021-0 [facility] 5-20 Allergie 00:00: s 00 No Known DA Active U [facility] 4-22 Allergie 00:00: s 00 NO KNOWN Drug Active Univers ALLERGIE Class ity of S [facility] Social History Social Habit Start Date Stop Date Quantity Comments Source Exposure to 2022 2022-04-20 Not sure [facility] SARS-CoV-2 (event) 00:00:00 13:50:00 Medica l Branch Sex Assigned At [birth year] [facility] 00:00:00 00:00:00 [facility] Smoking Status Start Date Stop Date Source Unknown if ever smoked [facility] Medications Ordered Filled Start Stop Current Ordering Indication Dosage Frequency Signature Comments Components Source Medication Medication Date Date Medication? Clinician (SIG) Name Name atul 650mg 650 mg, U nivers en 04-20 Oral, ity of (TYLENOL) 20:15: 19:15 ONCE[place] 650 00 :00 dose, On Medic al mg 04/20/22 Branch at 1515, MARY No known No Univers medications 8-13 ity of 23:06: [place] [facility] Branch No known [facility] Ordered Filled Immunization Date Status Comments Sour e Immunization Name Name Td 2022-04-20 Completed University 00:00:00 [facility] Vital Signs Vital Name Observation Time Observation Value Comments Source Heart rate 2022-04-20 19:24:00 56 /min [facility] Body temperature 2022-04-20 19:24:00 36.39 [facility] Systolic blood 2022-04-20 18:52:00 112 mm[Hg] Univer sity of pressure [facility] Diastolic blood 2022-04-20 18:52:00 75 mm[facility]Hg[facility] 2022-04-20 18:52:00 [facility] /[facility] Body height 2022-04-20 18:52:00 172.7 cm [facility] Body weight 2022-04-20 18:52:00 70.308 kg [facility] BMI 2022-04-20 18:52:00 23.57 kg/m2 [facility] [place] [facility] Oxygen saturation in 2022-04-20 18:52:00 99 /min [facility] of Arterial blood by [facility] Pulse oximetry Branch Systolic blood 2021-06-02 04:51:00 123 mm[Hg] Univer sity of pressure [place] [facility] Diastolic blood 2021-06-02 04:51:00 75 mm[Hg] Unive rsity of pressure [facility] Heart rate 2021-06-02 04:51:00 123 /min [facility] [place] [facility] Respiratory rate 2021-06-02 04:51:00 18 /min [facility] Oxygen saturation in 2021-06-02 04:51:00 95 /min [facility] Arterial blood by [facility] Pulse oximetry Branch Body temperature 2021-06-02 03:52:00 37.22 Radha [facility] Body height 2021-06-02 03:52:00 172.7 cm [facility] [place] [facility] Body weight 2021-06-02 03:52:00 77.111 kg [facility] [place] [facility] BMI 2021-06-02 03:52:00 25.85 kg/m2 [facility] [place] [facility] 02 Sat by Pulse 2021-03-11 03:15:25 97 [...] Weight 2021-03-08 21:35:11 2494.758\S\88 WEIGHT 2021-03-08 21:30:00 2.899729 kg HEIGHT 2021-03-08 21:30:00 5090.16 cm Body [...] Index 2021-03-08 19:57:15 0.0 Height 2021-03-08 19:57:15 5090.16\S\2003 Weight 2021-03-08 19:57:15 2494.758\S\88 Body Mass Index 2021-03-08 19:49:04 0.0 Height 2021-03-08 19:49:04 5090.16\S\2003 Weight 2021-03-08 19:49:04 2494.758\S\88 WEIGHT 2021-03-08 19:45:00 2.091609 kg HEIGHT 2021-03-08 19:45:00 5090.16 cm Respiratory 2021-02-09 11:13:01 No respiratory distress /min Recent Weight 2021-02-09 11:13:01 N Loss/Gain 02 Sat by Pulse 2021-02-09 11:13:01 99 /min Oximetry Body Mass Index 2021-02-09 11:13:01 24.2 Height 2021-02-09 11:13:01 172.72\S\68 Pulse Rate 2021-02-09 11:13:01 65 /min Respiratory Rate 2021-02-09 11:13:01 18 /min Temperature 2021-02-09 11:13:01 36.5\S\97.7 Weight 2021-02-09 11:13:01 02771.187\S\2544 Weight Measurement 2021-02-09 11:13:01 Estimated by Method Patient Height 2021-02-09 01:10:48 172.72\S\68 Pulse Rate 2021-02-09 01:10:48 65 /min Respiratory Rate 2021-02-09 01:10:48 18 /min Temperature 2021-02-09 01:10:48 36.5\S\97.7 Weight 2021-02-09 01:10:48 97298.187\S\2544 Weight Measurement 2021-02-09 01:10:48 Estimated by Method [...] Temperature 2021-02-08 23:59:26 36.5\S\97.7 Weight 2021-02-08 23:59:26 27520.187\S\2544 Weight Measurement 2021-02-08 23:59:26 Estimated by Method Patient Respiratory 2021-02-08 23:49:14 No respiratory distress /min Recent Weight 2021-02-08 23:49:14 N Loss/Gain 02 Sat by Pulse 2021-02-08 23:49:14 99 /min Oximetry Body Mass Index 2021-02-08 23:49:14 24.2 Height 2021-02-08 23:49:14 172.72\S\68 Pulse Rate 2021-02-08 23:49:14 65 /min Respiratory Rate 2021-02-08 23:49:14 18 /min Temperature 2021-02-08 23:49:14 36.5\S\97.7 Weight 2021-02-08 23:49:14 75008.187\S\2544 Weight Measurement 2021-02-08 23:49:14 Estimated by Method Patient Respiratory 2021-02-08 22:39:45 No respiratory distress /min 02 Sat by Pulse 2021-02-08 22:39:45 99 /min Oximetry Body Mass Index 2021-02-08 22:39:45 24.2 Height 2021-02-08 22:39:45 172.72\S\68 Pulse Rate 2021-02-08 22:39:45 65 /min Respiratory Rate 2021-02-08 22:39:45 18 /min Temperature 2021-02-08 22:39:45 36.5\S\97.7 Weight 2021-02-08 22:39:45 40390.187\S\2544 Weight Measurement 2021-02-08 22:39:45 Estimated by Method Patient Respiratory 2021-02-08 21:58:37 No respiratory distress /min 02 Sat by Pulse 2021-02-08 21:58:37 99 /min Oximetry Body Mass Index 2021-02-08 21:58:37 24.2 Height 2021-02-08 21:58:37 172.72\S\68 Pulse Rate 2021-02-08 21:58:37 65 /min Respiratory Rate 2021-02-08 21:58:37 18 /min Temperature 2021-02-08 21:58:37 36.5\S\97.7 Weight 2021-02-08 21:58:37 43035.187\S\2544 Weight Measurement 2021-02-08 21:58:37 Estimated by Method Patient Respiratory 2021-02-08 21:58:07 No respiratory distress /min 02 Sat by Pulse 2021-02-08 21:58:07 99 /min Oximetry Body Mass Index 2021-02-08 21:58:07 24.2 Height 2021-02-08 21:58:07 172.72\S\68 Pulse Rate 2021-02-08 21:58:07 65 /min Respiratory Rate 2021-02-08 21:58:07 18 /min Temperature 2021-02-08 21:58:07 36.5\S\97.7 Weight 2021-02-08 21:58:07 46312.187\S\2544 Weight Measurement 2021-02-08 21:58:07 Estimated by Method Patient 02 Sat by Pulse 2021-02-08 20:33:27 99 /min Oximetry Body Mass Index 2021-02-08 20:33:27 24.2 Height 2021-02-08 20:33:27 172.72\S\68 Pulse Rate 2021-02-08 20:33:27 65 /min Respiratory Rate 2021-02-08 20:33:27 18 /min Temperature 2021-02-08 20:33:27 36.5\S\97.7 Weight 2021-02-08 20:33:27 79106.187\S\2544 Weight Measurement 2021-02-08 20:33:27 Estimated by Method Patient Pulse Rate 2021-02-08 20:23:46 65 /min Respiratory Rate 2021-02-08 20:23:46 18 /min Temperature 2021-02-08 20:23:46 36.5\S\97.7 Weight 2021-02-08 20:23:46 20941.187\S\2544 Weight Measurement 2021-02-08 20:23:46 Estimated by Method [...] Temperature 2021-02-08 19:45:33 36.5\S\97.7 Weight 2021-02-08 19:45:33 77682.187\S\2544 Weight Measurement 2021-02-08 19:45:33 Estimated by Method Patient 02 Sat by Pulse 2021-02-08 19:41:59 99 /min Oximetry Body Mass Index 2021-02-08 19:41:59 24.2 Height 2021-02-08 19:41:59 172.72\S\68 Pulse Rate 2021-02-08 19:41:59 65 /min Respiratory Rate 2021-02-08 19:41:59 18 /min Temperature 2021-02-08 19:41:59 36.5\S\97.7 Weight 2021-02-08 19:41:59 33092.187\S\2544 Weight Measurement 2021-02-08 19:41:59 Estimated by Method Patient 02 Sat by Pulse 2021-02-08 19:27:42 99 /min Oximetry Body Mass Index 2021-02-08 19:27:42 24.2 Height 2021-02-08 19:27:42 172.72\S\68 Pulse Rate 2021-02-08 19:27:42 65 /min Respiratory Rate 2021-02-08 19:27:42 18 /min Temperature 2021-02-08 19:27:42 36.5\S\97.7 Weight 2021-02-08 19:27:42 70255.187\S\2544 Weight Measurement 2021-02-08 19:27:42 Estimated by Method Patient WEIGHT 2021-02-08 19:19:00 72.487221 kg HEIGHT 2021-02-08 19:19:00 172.72 cm Procedures Procedure Date / Time Performed Performing Clinician [facility] e ED LACERATION REPAIR 2022-04-20 20:07:00 Silvana Cole [facility] CT 2022-04-20 19:06:25 [facility] MAX[facility]OFAC[facility]MANDIBLE [facility] WO CONTRAST CT TRAUMA HEAD WO 2022-04-20 19:06:25 [facility] Encounters Start End Encounter Admission Attending Care Care Encounter Source Date/Time Date/Time Type Type Clinicians Facility Department ID 2021-02-08 Inpatient [facility] [id number] [facility] 18:52:00 32 2023-02-05 2023-02-05 Emergency [facility] [id number] [facility] 19:29:00 19:29:00 66 2023-02-05 2023-02-05 Emergency Emergency Landry Rich [facility] JM0 [id number] [facility] 19:29:00 19:29:00 66 2022-10-31 2022-10-31 Emergency [facility] [id number] [facility] 11:48:00 11:48:00 87 2022-10-31 2022-10-31 Emergency Emergency Landry Rich [facility] JM0 [id number] [facility] 11:48:00 11:48:00 87 2022-04-20 2022-04-20 Emergency X KYARA [facility] [id number] [facility] 13:54:00 15:22:00 SILVANA [facility] 2022-04-20 2022-04-20 Emergency [place], [facility] [id number] Univers 13:54:00 15:22:00 Silvana MORRIS [id number] ity of [place] [id number] [facility] [id number] [address] 2021-06-01 2021-06-01 [facility] [id number] Univers 22:48:00 23:51:00 Juju Elsa NavarroFoster [id number] ity of [place] [id number] [facility] [id number] [address] 2021-06-01 2021-06-01 [facility] [id number] Univers 22:48:00 [facility]48[facility] 2021-04-20 2021-04-20 Emergency Emergency [place], [facility] [id number] [facility] 06:54:00 12:54:00 Chrystan 25 2021-04-20 2021-04-20 Emergency [facility] [id number] [facility] 06:54:00 06:54:00 25 2021-04-20 2021-04-20 Emergency Emergency [place], [facility] [id number] [facility] 03:54:00 06:28:00 Lukuman 86 2021-03-08 2021-03-08 Emergency Emergency [place], [facility] [id number] [facility] 19:26:00 21:44:00 Lukuman 61 2021-03-08 2021-03-08 Emergency [facility] [id number] [facility] 19:26:00 19:26:00 61 2021-02-08 2021-02-08 Emergency [facility] [id number] [facility] 18:52:00 18:52:00 32 Results Test Description Test Time Test Comments Results Result Comments Source UA, Urinalysis Rflx Cult/Sedmt 2023-02-05 20:10:00 Test Item Value Reference Range Interpretation Comme nts Color,Urine (test code = UCOL) Yellow Yellow Clarity,Urine (test code = UCLAR) Clear Clear Ph, Urine (test code = UPH) 5.5 5.0-9.0 N Specific [place],Urine (test code = USG) 1.025 1.005-1.030 N Blood,Urine (test code = UBLD) Negative mg/dL Negative Protein,Urine (test code = UPRO) 30 mg/dL Negative A Glucose,Urine (UA) (test code = UGLU) Negative mg/dL Negative Ketones,Urine (test code = UKET) 15 mg/dL Negative A Nitrate,Urine (test code = UNIT) Negative Negative Bilirubin,Urine (test code = UBIL) Negative mg/dL Negative Urobilinogen,Urine (test code = UURO) 1.0 E.U./dL Normal Leukocyte Esterase,Urine (test code = ULEU) Negative mg/dL Negative UF REFLEXUF REFLEXUrine [id number] 20:10:00 Test Item Value Reference Range Interpretation Comments RBC,Urine (test code = URBCUF) 0-2 /HPF 0-2 WBC,Urine (test code = UWBCUF) 0-5 /HPF 0-5 Epithelial Cell,Urine (test 0-5 /HPF 0-5 code = UECUF) Casts,Urine (test code = 0-5 /LPF None Seen UCASTUF) Bacteria,Urine (test code = None Seen /hpf None Seen UBACTUF) UF REFLEXUF REFLEXDrug Screen,[id number] 20:10:00 Test Item Value Reference Range Interpretation Comments [...] Screen,Urine (test code = UBENZS) Cocaine Screen,Urine Negative Negative (test code = UCOCS) Cannabinoid Negative Negative Screen,Urine (test code = UTHCS) Propoxyphene Screen, Negative Negative Urine (test code = UPROP) Complete Blood Count Auto [id number] 20:00:00 Test Item Value Reference Range Interpretation Comments White Blood Count (test code = 8.9 x10 3/uL 4.4-10.5 N WBCT) Red Blood Count (test code = 4.93 x10 6/uL 4.10-5.70 N RBC) Hemoglobin (test code = HGBT) 15.6 g/dL 13.4-17.4 N Hematocrit (test code = HCTT) 45.3 % 38.7-52.0 N Mean Corpuscular Volume (test 91.90 fL 80.00-100.00 N code = MCV) Mean Corpuscular Hemoglobin 31.6 pg 27.0-32.5 N (test code = MCH) Mean Corpuscular HGB Conc (test 34.40 g/dL 32.00-37.50 N code = MCHC) RDW Coefficient of Variation 11.8 % 11.5-14.5 N (test code = RDWCV) Platelet Count (test code = 212 x10 3/uL 140.0-440.0 N PLTT) Mean Platelet Volume (test code 10.8 fL = MPV) Immature Granulocytes % (Auto) 0.2 % 0.0-5.0 N (test code = IMMGRAN%) Neutrophils % (Auto) (test code 72.5 % 36.0-70.0 H = NE%) Lymphocytes % (Auto) (test code 20.7 % 12.0-44.0 N = LY%) Monocytes % (Auto) (test code = 6.2 % 0.0-11.0 N MO%) Eosinophils % (Auto) (test code 0.1 % 0.0-7.0 N = EO%) Basophils % (Auto) (test code = 0.3 % 0.0-2.0 N BA%) Immature Granulocytes # (Auto) 0.02 x10 3/uL (test code = IMMGRAN#) Neutrophils # (Auto) (test code 6.5 x10 3/uL 1.6-7.4 N = NE#) Lymphocytes # (Auto) (test code 1.85 x10 3/uL 0.50-4.60 N = LY#) Monocytes # (Auto) (test code = 0.55 x10 3/uL 0.00-1.20 N MO#) Eosinophils # (Auto) (test code 0.01 x10 3/uL 0.00-0.74 N = EO#) Basophils # (Auto) (test code = 0.03 x10 3/uL 0.00-0.21 N BA#) nRBC Abs (test code = NRBCA) 0 nRBC Pct (test code = NRBCP) 0 % Comprehensive Metabolic [id number] 20:00:00 Test Item Value Reference Range Interpretation Comments SODIUM (test code = NA) 143.0 mmol/L 136.0-145.0 N Potassium,K (test code = 4.1 mmol/L 3.0-5.1 N K) Chloride (test code = 113 mmol/L 98-107 H CL) Carbon Dioxide (test 22 mmol/L 20-31 N code = CO2) Anion Gap (test code = 8 mmol/L 5-15 N GAP) Blood Urea Nitrogen 9 mg/dL 9-23 N (test code = BUN) Creatinine (test code = 1.03 mg/dL 0.55-1.02 H CREATT) Creatinine Clr Calc 104.87 Pharmacy (test code = mL/min CRCLPHA) Estimated Glomerular 100 See_Comment Reporte d eGFR is Filt Rate (test code = based on the EGFR.XX) CKD-EPI 202 equation thatdo es not use a race coefficient. Additional information can be found at:[id number]_l cb_ egfr_summary_fl jenifer 5.pdf (kidney.o rg) [Automated message] The system which generated this result transmit reina reference range : >=90 ml/min/1.73m2. The reference range was not used to interpret this result as normal/abnormal . BUN/Creatinine Ratio 9 ratio 10-20 L (test code = BCRATIO) Glucose (test code = 81 mg/dL 74-106 N GLU) Osmolality,Calculated 293.2 (test code = OSMOC) Calcium (test code = CA) 9.5 mg/dL 8.3-10.6 N Bilirubin,Total (test 0.5 mg/dL 0.2-1.1 N code = BILIT) Aspartate Amino 23 U/L 0-34 N Transferase (test code = AST) Alanine Aminotransferase 25 U/L 10-49 N (test code = ALT) Total Protein (test code 7.1 g/dL 5.7-8.2 N = TP) Albumin Level (test code 4.7 g/dL 3.2-4.8 N = ALB) Globulin (test code = 2.4 mg/dL 2.3-3.5 N GLOB) Albumin/Globulin Ratio 2.0 ratio 0.8-2.0 N (test code = AGRATIO) Alkaline Phosphatase 71 U/L 46-116 N (test code = ALP) Ethanol [id number] 20:00:00 Test Item Value Reference Range Interpretation Comments Ethanol (test code 6 mg/dL The pharm acological = ETOH) response to blo od alcohol levels mayvary from individual to i ndividual. The fatal vivek ntrationhas been reported t o be >400mg/dL. UA, Urinalysis Rflx Cult/[id number] 12:23:00 Test Item Value Reference Range Interpretation Comments Color,Urine (test code = UCOL) Yellow Yellow Clarity,Urine (test code = Clear Clear UCLAR) Ph, Urine (test code = UPH) 6.5 5.0-9.0 N Specific [place],Urine (test >= 1.030 1.005-1.030 N code = USG) Blood,Urine (test code = UBLD) Negative mg/dL Negative Protein,Urine (test code = Negative mg/dL Negative UPRO) Glucose,Urine (UA) (test code Negative mg/dL Negative = UGLU) Ketones,Urine (test code = Trace mg/dL Negative A UKET) Nitrate,Urine (test code = Negative Negative UNIT) Bilirubin,Urine (test code = Negative mg/dL Negative UBIL) Urobilinogen,Urine (test code 1.0 E.U./dL Normal = UURO) Leukocyte Esterase,Urine (test Negative mg/dL Negative code = ULEU) Drug Screen,[id number] 12:23:00 Test Item Value Reference Range Interpretation Comments [...] Urine (test Negative Negative code = UPROP) Complete Blood Count Auto [id number] 12:00:00 Test Item Value Reference Range Interpretation Comments White Blood Count (test code = 5.1 x10 3/uL 4.4-10.5 N WBCT) Red Blood Count (test code = 4.82 x10 6/uL 4.10-5.70 N RBC) Hemoglobin (test code = HGBT) 15.0 g/dL 13.4-17.4 N Hematocrit (test code = HCTT) 43.7 % 38.7-52.0 N Mean Corpuscular Volume (test 90.70 fL 80.00-100.00 N code = MCV) Mean Corpuscular Hemoglobin 31.1 pg 27.0-32.5 N (test code = MCH) Mean Corpuscular HGB Conc 34.30 g/dL 32.00-37.50 N (test code = MCHC) RDW Coefficient of Variation 11.1 % 11.5-14.5 L (test code = RDWCV) Platelet Count (test code = 157.0 x10 3/uL 140.0-440.0 N PLTT) Mean Platelet Volume (test 10.7 fL code = MPV) Immature Granulocytes % (Auto) 0.2 % 0.0-5.0 N (test code = IMMGRAN%) Neutrophils % (Auto) (test 49.5 % 36.0-70.0 N code = NE%) Lymphocytes % (Auto) (test 38.6 % 12.0-44.0 N code = LY%) Monocytes % (Auto) (test code 8.5 % 0.0-11.0 N = MO%) Eosinophils % (Auto) (test 2.2 % 0.0-7.0 N code = EO%) Basophils % (Auto) (test code 1.0 % 0.0-2.0 N = BA%) Immature Granulocytes # (Auto) 0.01 x10 3/uL (test code = IMMGRAN#) Neutrophils # (Auto) (test 2.5 x10 3/uL 1.6-7.4 N code = NE#) Lymphocytes # (Auto) (test 1.96 x10 3/uL 0.50-4.60 N code = LY#) Monocytes # (Auto) (test code 0.43 x10 3/uL 0.00-1.20 N = MO#) Eosinophils # (Auto) (test 0.11 x10 3/uL 0.00-0.74 N code = EO#) Basophils # (Auto) (test code 0.05 x10 3/uL 0.00-0.21 N = BA#) nRBC Abs (test code = NRBCA) 0 nRBC Pct (test code = NRBCP) 0 % Comprehensive Metabolic [id number] 12:00:00 Test Item Value Reference Range Interpretation Comments SODIUM (test code = NA) 142.0 mmol/L 136.0-145.0 N Potassium,K (test code = 4.4 mmol/L 3.0-5.1 N K) Chloride (test code = 109 mmol/L 98-107 H CL) Carbon Dioxide (test 30 mmol/L 20-31 N code = CO2) Anion Gap (test code = 3 mmol/L 5-15 L GAP) Blood Urea Nitrogen 17 mg/dL 9-23 N (test code = BUN) Creatinine (test code = 1.02 mg/dL 0.55-1.02 N CREATT) Creatinine Clr Calc 102.45 Pharmacy (test code = mL/min CRCLPHA) Estimated Glomerular 101 See_Comment Reporte d eGFR is Filt Rate (test code = based on the EGFR.XX) CKD-EPI 2020 equation thatdo es not use a race coefficient. Additional information can be found at:[id number]_j cb_ egfr_summary_fl jenifer 5.pdf (kidney.o rg) [Automated message] The system which generated this result transmit reina reference range : >=90 ml/min/1.73m2. The reference range was not used to interpret this result as normal/abnormal . BUN/Creatinine Ratio 17 ratio 10-20 N (test code = BCRATIO) Glucose (test code = 78 mg/dL 74-106 N GLU) Osmolality,Calculated 294.0 (test code = OSMOC) Calcium (test code = CA) 9.3 mg/dL 8.3-10.6 N Bilirubin,Total (test 0.5 mg/dL 0.2-1.1 N code = BILIT) Aspartate Amino 31 U/L 0-34 N Transferase (test code = AST) Alanine Aminotransferase 59 U/L 10-49 H (test code = ALT) Total Protein (test code 6.1 g/dL 5.7-8.2 N = TP) Albumin Level (test code 4.1 g/dL 3.2-4.8 N = ALB) Globulin (test code = 2.0 mg/dL 2.3-3.5 L GLOB) Albumin/Globulin Ratio 2.1 ratio 0.8-2.0 H (test code = AGRATIO) Alkaline Phosphatase 72 U/L 46-116 N (test code = ALP) Ethanol [id number] 12:00:00 Test Item Value Reference Range Interpretation Comments Ethanol (test code < 3 mg/dL The pharm acological = ETOH) response to blo od alcohol levels mayvary from individual to i ndividual. The fatal vivek ntrationhas been reported t o be >400mg/dL. UC, Urine [id number] 09:45:00 Test Item Value Reference Range Interpretation Comments UC, Urine Culture (test NO GROWTH AFTER 48 code = UC) HOURS Complete Blood Count Auto [id number] 08:33:00 Test Item Value Reference Range Interpretation [...] (test code = NRBCP) 0 % Drug Screen,[id number] 08:33:00 Test Item Value Reference Range Interpretation [...] (test code = UPROP) UA, Urinalysis Rflx Cult/[id number] 08:33:00 Test Item Value Reference Range Interpretation Comments Color,Urine (test code = Yellow Y UCOL) Clarity,Urine (test code = Slightly Cloudy Clear A UCLAR) PH,Urine (test code = 5.5 5.5-8.5 UPH.XX) Specific [place],Urine >= 1.030 1.005-1.030 N (test code = [...] Negative (test code = ULEU) Comprehensive Metabolic [id number] 08:33:00 Test Item Value Reference Range Interpretation [...] 70 U/L 46-116 N = ALP) Ethanol [id number] 08:33:00 Test Item Value Reference Range Interpretation Comments Ethanol (test code = ETOH) < 3 mg/dL Urine [id number] 08:33:00 Test Item Value Reference Range Interpretation Comments RBC,Urine (test code = 0-1 /HPF None Seen URBC.XX) WBC,Urine (test code = 0-1 /HPF None Seen UWBC.XX) Squamous Epithelial Occasional /HPF None Seen Cell,Urine (test code = USQEPI.XX) Amorphous Crystals,Urine Moderate /HPF None Seen A (test code = UAMSE) Bacteria,Urine (test code = Trace /HPF None Seen A UBACT) Coronavirus PCR, COVID19 [id number] 08:28:00 Test Item Value Reference Range Interpretation Comments Coronavirus PCR, For use under Emergency COVID19 Rapid (test Use Authorization (EUA) code = SARSCOV2) only. Coronavirus PCR, Reference Range: COVID19 Rapid (test Negative code = GFMEZME06.1) SARS-CoV-2 PCR Result: Negative by PCR (test code = SARS-CoV-2 PCR Result:) COVID-19 Status: AsymptomaticComplete Blood Count Auto [id number] 21:00:00 Test Item Value Reference Range Interpretation [...] NRBCP) 0 % Complete Blood Count Auto [id number] 20:55:00 Test Item Value Reference Range Interpretation [...] code = NRBCP) 0 % Comprehensive Metabolic [id number] 20:55:00 Test Item Value Reference Range Interpretation [...] 78 U/L 46-116 N = ALP) Ethanol [id number] 20:55:00 Test Item Value Reference Range Interpretation Comments Ethanol (test code = ETOH) < 3 mg/dL Coronavirus PCR, COVID19 [id number] 20:52:00 Test Item Value Reference Range Interpretation Comments Coronavirus PCR, For use under Emergency COVID19 Rapid (test Use Authorization (EUA) code = SARSCOV2) only. Coronavirus PCR, Reference Range: COVID19 Rapid (test Negative code = MKFYGPO27.1) SARS-CoV-2 PCR Result: Negative by PCR (test code = SARS-CoV-2 PCR Result:) COVID-19 Status: AsymptomaticDrug Screen,[id number] 20:50:00 Test Item Value Reference Range Interpretation [...] Urine (test Negative Negative code = UPROP) Notes Date/Time Note Provider Source 2021-04-20 11:53:00-00:00 [facility] [address] [place] [address] Emergency Department Document Signed Patient: Chika Schmid Medical Record#: [id number] : 1990 Acct:[id number] Age/Sex: 31 / M Admit/Reg Date: 04/20/21 Loc: [id number] Room: Report Number: [id number]: Tete Sebastian MD Arrival - Arrival ED Triage Note: seen earlier for headaches, given toradol, then requested to be seen for psych stating seeing things and solano ving conversations with no one, states hx of bipolar, denies si or hi states homeless and staying with friends Psych HPI - General Chief Complaint: Psychiatric Symptoms Stated Complaint: Headache Source: patient Mode of arrival: ambulatory Limitations: no limitations Primary Care Provider: Pcp-None,Md - History of Present Illness MD complaint: suicidal ideat ion, altered mental status (hallucinations/having conversations with people who arent there) Onset (ago): unknown Duration: constant History of same: Yes Relieving factors: none Exacerbating factors: none Context: not taking psychiatric medications Associated psychiatric symptoms: depression, daniel cidal ideation Associated symptoms: denies other symptoms Treatments prior to arrival: none If self harm: admits thoughts of self harm - Related Data Home Medications Medication Instructions Recorded Confirmed Depakote Dr 500 mg PO DAILY 02/09/21 02/09/21 OLANZapine 20 mg PO QHS 02/09/21 02/09/21 Olanzapine 5 mg PO DAILY 02/09/21 02/09/21 Previous Rx's Medication Instructions Recorded hydrOXYzine HCL [Atarax] 25 mg PO Q8H PRN #20 ta blet 03/08/21 Allergies Allergy/AdvReac Type Severity Reaction Status Da te / Time No Known Drug Allergies Allergy Verified 1 07:20 Review of Systems All Other Systems (except as marked in HPI): Rev iewed and Negative Past Medical/Surgical History Medical History: Medical History (Last Updated 04/20/21 @ 06:12 b idris Farfan MD) Bipolar 1 disorder (Medical) F31.9 Family/Social History - Social History Smoking Status: Current every day smoker Smoked/Used Tobacco in the Last 30 Days?: Yes Current or Hx of Recreational Drug use: Yes 1. How Often Do You Have a Drink Containing Alco hol: b. Monthly or Less Physical Exam Triage Vital Signs: Temperature 37.0 C 04/20/21 07:20 Temperature Source Oral 04/20/21 07:20 Pain Intensity 4 04/20/21 07:20 Pulse Rate 58 L 04/20/21 07:20 Respiratory Rate 16 04/20/21 07:20 Blood Pressure 105/58 L 04/20/21 07:20 Blood Pressure Mean 73 04/20/21 07:20 02 Sat by Pulse Oximetry 99 04/20/21 07:20 Oxygen Delivery Method 04/20/21 07:20 Physical Exam: I have reviewed the triage vital signs. Const: Well nourished, well developed, appears s tated age Eyes: PERRL, no conjunctival injection HENT: NCAT, Neck supple without meningismus CV: RRR, Warm, well-perfused extremities RESP: CTAB, Unlabored respiratory effort GI: soft, non-tender, non-distended, no masses MSK: No gross deformities appreciated Skin: Warm, dry. No rashes Neuro: Alert, oriented x 3, adaptive physical educator II-XII grossly intact. Sensation and motor function of extremities grossly intact. Psych: + Si + AH, delusions, paranoid thoughts Results/Orders - Results and Orders Result diagrams: 04/20/21 08:33 04/20/21 08:33 Lab Testing Results 04/20/21 08:33: Sodium 142.0 , Potassium 4.2, Chloride 111 H, Carbon Dioxide 25, Anion Gap 6, BUN 21, Creatinine 1.00, Estimated Creat Clear 105.45, Est GFR ( Amer) > 60, Est GFR (Non-Af Amer) > 60, BUN/Creatinine Ratio 21 H, Glucose 89, Calculated Osmolality 295.5, Calcium 9.8, Total Bilirubin 0.7, AST 33, ALT 2 7, Alkaline Phosphatase 70, Total Protein 6.2, Albumin 4.5, Globulin 1.7 L, Albumin/Globulin Ratio 2.6 H, Ethyl Alcohol < 3 04/20/21 08:33: WBC 9.0, RBC 4.41, Hgb 13.8, Hct 40.8, MCV 92.50, MCH 31.3, MCHC 33.80, RDW Coeff of Aj 11.8, Plt Count 220.0, MPV 10.4, Immature Gran % (Auto) 0.2, Neut % (Auto) 50.8, Lymph % (Auto) 34.7, [place] % (Auto) 8.7, Eo s % (Auto) 4.8, Baso % (Auto) 0.8, Neut # (Auto) 4.6, Lymph # (Auto) 3.12, [place] # (Auto) 0.78, Eo s # (Auto) 0.43, Baso # (Auto) 0.07, Immature Gran # (Auto) 0.02, Absolute Nucleated RBC 0, Nucleated RBC % (auto) 0 04/20/21 08:33: Urine Color Yellow, Urine Clarity Slightly cloudy A, Urine pH 5.5, Ur Specific [place] >= 1.030, Urine Prot ein Negative, Urine Glucose (UA) Negative, Urine Ketones Trace A, Urine Blood Small A, Urine Nitrate Positive A, Urine Bilirubin Negative, Urine Urobilinogen 0.2, Ur Leukocyte Esterase Negative, Urine RBC 0-1, Urine WBC 0-1, Ur Squamous Epith Cells Occasional, Amorphous Crystals Moderate A, Urine Bacteria Tr gino A 04/20/21 08:33: Urine Opiate s Screen Negative, Urine Methadone Screen Negative, Ur Propoxyphene Screen Negative, Ur Barbitur ates Screen Negative, Ur Phencyclidine Scrn Negative, Ur Amphetamines Screen Positive A, U Benzodi azepines Scrn Negative, Urine Cocaine Screen Positive A, U Cannabinoids Screen Negative Medications Ordered: Discontinued Medications Cephalexin HCl (Keflex) 500 mg PO ONCE ONE Stop: 04/20/21 10:47 Last Admin: 04/20/21 11:00 Dose: 500 mg Documented by: [id number] [facility] Vital Signs Temperature 37.0 C 04/20/21 07:20 Pulse Rate 58 L 04/20/21 07:20 Respiratory Rate 16 04/20/21 07:20 Blood Pressure 105/58 L 04/20/21 07:20 02 Sat by Pulse Oximetry 99 04/20/21 07:20 Temperature 37.0 C 04/20/21 07:20 Pulse Rate 58 L 04/20/21 07:20 Respiratory Rate 16 04/20/21 07:20 Blood Pressure 105/58 L 04/20/21 07:20 02 Sat by Pulse Oximetry 99 04/20/21 07:20 - [facility] Medical Decision Making Narrative: 04/20/21 12:13 Medical evaluation performed . There is no clinical evidence of intoxication or any acute medical problems requiring immediate intervention. Exam is benign. No evidence of trauma, toxic ingestion, electrolyte abnormality, in fection or primary neurologic abnormality. Medically stable from the emergency department perspec tive. Final disposition will be determined by psychiatrist. Patient has been medically cleared. Patient cleared by Psychiatry. Please see their note for details. Disposition Clinical Impression: Bipolar disorder with depression Disposition: Home or Self-Care Instructions: ED Bipolar Disorder Referrals: Pcp-None,Md, MD [Primary Care Provider] - Dictated By: Tete Sebastian MD Signed By: Tete Sebastian MD 04/20/21 1214 DD/ 1153 TD/TT: 04/20/21 1153 Entertainment Manager: RICO cc: MUSHTAQ* Pcp-Md MARIN Rondon
[2023-04-16 23:02] LABS: Absolute Lymphocytes (CBC) 2.1 K/uL (0.7-4.9); Hematocrit 40.4 % (39.6-49.0); Lymphocytes % 23.6 % (15.3-44.8); MCV 93.6 fL (80-100); MPV 8.7 fL (7.6-11.3); RBC Red Blood Cell Count 4.32 M/uL (4.33-5.43)
[2023-04-16] MEDS ORDERED: MORPHINE 4 MG/ML SYR ONE (23:02)
[2023-04-16] MEDS ORDERED: LORazepam 2 MG/ML VIAL ONE (23:02)
[2023-04-16] MEDS ORDERED: ONDANSETRON 4 MG/2 ML VIAL ONE (23:02)
[2023-04-16] MEDS ORDERED: NA CHLORIDE 0.9% 1,000 ML ONE (23:03)
[2023-04-16 23:19] LABS: Potassium 3.6 mEq/L (3.5-5.1)
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
[2023-04-17] MEDS ORDERED: AMOXICILLIN TRIHYDR 250 MG CAP ONE (05:02)
[2023-04-17] MEDS ORDERED: IBUPROFEN 200 MG TAB PO ONE (05:02)
[2023-04-17] MEDS ORDERED: ONDANSETRON 4 MG (ODT) TAB ONE (05:02)
[2023-04-17] MEDS ORDERED: IBUPROFEN 400 MG TAB ONE (05:02)
[2023-04-17 05:19] VITALS: TEMP 98.2
[2023-04-17 05:23] VITALS: O2SAT 99
[2023-04-17 05:26] VITALS: BP 118/73
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
== END 2023-04-17 05:14 | disposition home or self-care (01) ==
LOC: ER 22:02
DX: S03.2XXA Dislocation of tooth, initial encounter (principal); S02.5XXA Fracture of tooth (traumatic), initial encounter for closed fracture; S00.83XA Contusion of other part of head, initial encounter; S80.01XA Contusion of right knee, initial encounter; S80.211A Abrasion, right knee, initial encounter; V03.00XA Pedestrian on foot injured in collision with car, pick-up truck or van in nontraffic accident, initial encounter; F20.9 Schizophrenia, unspecified
CPT/HCPCS: 85025; 80048; 36415; 86900; 86850; 85610; 86901; 73562 ×2; J2405; J7030; 70450; 71260; 72125; 74177; Q0162; Q9967

== ENCOUNTER 2023-04-18 06:56 | Emergency (ER) | payer OTHER ==
--- OUTSIDE RECORDS SUMMARY | 2023-04-18 07:03 | XMS REPORT | Continuity of Care Document ---
:1990 Author Organization [facility] t Address [address] [place] [address]. [address] [place] [address] Care Team Providers Name Role Phone PCP, PATIENT DOES NOT HAVE A Primary Care Physician Unavaila Landry Carvalho Attending Clinician Unavailable SILVANA COLE Attending Clinician Unavailable Silvana Sampson Attending Clinician Jayy Elizalde MD Attending Clinician JAYY ELIZALDE Attending Clinician Unavailable Tete Sebsatian Attending Clinician Unavailable Amando Farfan Attending Clinician Unavailable SILVANA COLE Admitting Clinician Unavailable Payers Payer Name Policy Type Policy Number Effective Date Expiration Date [employer] [id number] 3081-07-02 GROUP HOME 00:00:00 Problems Condition Condition Condition Status Onset Resolution Last Treating Co mments Source Name Details Category Date Date Treatment Clinician Date No known No known Disease Unive rs active active ity of problems problems [facility] Allergies, Adverse Reactions, Alerts Allergy Allergy [...] Active Univers ALLERGIE Class ity of S [facility] Social History Social Habit Start Date Stop Date Quantity Comments Source Exposure to 2022 2022-04-20 Not sure [facility] SARS-CoV-2 (event) 00:00:00 13:50:00 Medica l Branch Sex Assigned At [birth year] [facility] 00:00:00 00:00:[address] Smoking Status Start Date Stop Date Source Unknown if ever smoked [facility] Medications Ordered Filled Start Stop Current Ordering Indication Dosage Frequency Signature Comments Components Source Medication Medication Date Date Medication? Clinician (SIG) Name Name atul 650mg 650 mg, U nivers en 04-20 Oral, ity of (TYLENOL) 20:15: 19:15 ONCE[place] 650 00 :00 dose, On Medic al mg 04/20/22 Branch at 1515, MAYR No known No Univers medications 8-13 ity of 23:06: [place] 59 [facility] Branch No known No [facility] Immunizations Ordered Filled Immunization Date Status Comments Sour e Immunization Name Name Td 2022-04-20 Completed University 00:00:00 [facility] Vital Signs Vital Name Observation Time Observation Value Comments Source Heart rate 2022-04-20 19:24:00 56 /min [facility] Body temperature 2022-04-20 19:24:00 36.39 Radha [facility] Systolic blood 2022-04-20 18:52:00 112 mm[Hg] Univer sity of pressure [facility] Diastolic blood 2022-04-20 18:52:00 75 mm[Hg] [facility] 2022-04-20 18:52:00 19 /min [facility] Body height 2022-04-20 18:52:00 172.7 cm [facility] Body weight 2022-04-20 18:52:00 70.308 kg [facility] BMI 2022-04-20 18:52:00 23.57 kg/m2 [facility] [place] [facility] Oxygen saturation in 2022-04-20 18:52:00 99 /min University of Arterial blood by [facility] Pulse oximetry Branch Systolic blood 2021-06-02 04:51:00 123 mm[Hg] Univer sity of pressure [place] [facility] Diastolic blood 2021-06-02 04:51:00 75 mm[Hg] Unive rsity of pressure [facility] Heart rate 2021-06-02 04:51:00 123 /min [facility] [place] [facility] Respiratory rate 2021-06-02 04:51:00 18 /min [facility] Oxygen saturation in 2021-06-02 04:51:00 95 /min University of Arterial blood by [facility] Pulse oximetry Branch Body temperature 2021-06-02 03:52:00 37.22 Radha [facility] Body height 2021-06-02 03:52:00 172.7 cm [facility] [place] [facility] Body weight 2021-06-02 03:52:00 77.111 kg [facility] [place] [facility] BMI 2021-06-02 03:52:00 25.85 kg/m2 [facility] [place] [facility] 02 Sat by Pulse 2021-03-11 [...] Weight 2021-03-08 21:35:11 2494.758\S\88 WEIGHT 2021-03-08 21:30:00 2.621449 kg HEIGHT 2021-03-08 21:30:00 5090.16 cm Body [...] Weight 2021-03-08 19:49:04 2494.758\S\88 WEIGHT 2021-03-08 19:45:00 2.930479 kg HEIGHT 2021-03-08 19:45:00 5090.16 cm Respiratory 2021-02-09 11:13:01 No respiratory distress /min Recent Weight 2021-02-09 11:13:01 N Loss/Gain 02 Sat by Pulse 2021-02-09 11:13:01 99 /min Oximetry Body Mass Index 2021-02-09 11:13:01 24.2 Height 2021-02-09 11:13:01 172.72\S\68 Pulse Rate 2021-02-09 11:13:01 65 /min Respiratory Rate 2021-02-09 11:13:01 18 /min Temperature 2021-02-09 11:13:01 36.5\S\97.7 Weight 2021-02-09 11:13:01 57519.187\S\2544 Weight Measurement 2021-02-09 11:13:01 Estimated by Method Patient Height 2021-02-09 01:10:48 172.72\S\68 Pulse Rate 2021-02-09 01:10:48 65 /min Respiratory Rate 2021-02-09 01:10:48 18 /min Temperature 2021-02-09 01:10:48 36.5\S\97.7 Weight 2021-02-09 01:10:48 71781.187\S\2544 Weight Measurement 2021-02-09 01:10:48 Estimated by Method [...] Temperature 2021-02-08 23:59:26 36.5\S\97.7 Weight 2021-02-08 23:59:26 33811.187\S\2544 Weight Measurement 2021-02-08 23:59:26 Estimated by Method Patient Respiratory 2021-02-08 23:49:14 No respiratory distress /min Recent Weight 2021-02-08 23:49:14 N Loss/Gain 02 Sat by Pulse 2021-02-08 23:49:14 99 /min Oximetry Body Mass Index 2021-02-08 23:49:14 24.2 Height 2021-02-08 23:49:14 172.72\S\68 Pulse Rate 2021-02-08 23:49:14 65 /min Respiratory Rate 2021-02-08 23:49:14 18 /min Temperature 2021-02-08 23:49:14 36.5\S\97.7 Weight 2021-02-08 23:49:14 52908.187\S\2544 Weight Measurement 2021-02-08 23:49:14 Estimated by Method Patient Respiratory 2021-02-08 22:39:45 No respiratory distress /min 02 Sat by Pulse 2021-02-08 22:39:45 99 /min Oximetry Body Mass Index 2021-02-08 22:39:45 24.2 Height 2021-02-08 22:39:45 172.72\S\68 Pulse Rate 2021-02-08 22:39:45 65 /min Respiratory Rate 2021-02-08 22:39:45 18 /min Temperature 2021-02-08 22:39:45 36.5\S\97.7 Weight 2021-02-08 22:39:45 36691.187\S\2544 Weight Measurement 2021-02-08 22:39:45 Estimated by Method Patient Respiratory 2021-02-08 21:58:37 No respiratory distress /min 02 Sat by Pulse 2021-02-08 21:58:37 99 /min Oximetry Body Mass Index 2021-02-08 21:58:37 24.2 Height 2021-02-08 21:58:37 172.72\S\68 Pulse Rate 2021-02-08 21:58:37 65 /min Respiratory Rate 2021-02-08 21:58:37 18 /min Temperature 2021-02-08 21:58:37 36.5\S\97.7 Weight 2021-02-08 21:58:37 76515.187\S\2544 Weight Measurement 2021-02-08 21:58:37 Estimated by Method Patient Respiratory 2021-02-08 21:58:07 No respiratory distress /min 02 Sat by Pulse 2021-02-08 21:58:07 99 /min Oximetry Body Mass Index 2021-02-08 21:58:07 24.2 Height 2021-02-08 21:58:07 172.72\S\68 Pulse Rate 2021-02-08 21:58:07 65 /min Respiratory Rate 2021-02-08 21:58:07 18 /min Temperature 2021-02-08 21:58:07 36.5\S\97.7 Weight 2021-02-08 21:58:07 65190.187\S\2544 Weight Measurement 2021-02-08 21:58:07 Estimated by Method Patient 02 Sat by Pulse 2021-02-08 20:33:27 99 /min Oximetry Body Mass Index 2021-02-08 20:33:27 24.2 Height 2021-02-08 20:33:27 172.72\S\68 Pulse Rate 2021-02-08 20:33:27 65 /min Respiratory Rate 2021-02-08 20:33:27 18 /min Temperature 2021-02-08 20:33:27 36.5\S\97.7 Weight 2021-02-08 20:33:27 73958.187\S\2544 Weight Measurement 2021-02-08 20:33:27 Estimated by Method Patient Pulse Rate 2021-02-08 20:23:46 65 /min Respiratory Rate 2021-02-08 20:23:46 18 /min Temperature 2021-02-08 20:23:46 36.5\S\97.7 Weight 2021-02-08 20:23:46 11437.187\S\2544 Weight Measurement 2021-02-08 20:23:46 Estimated by Method [...] Temperature 2021-02-08 19:45:33 36.5\S\97.7 Weight 2021-02-08 19:45:33 39842.187\S\2544 Weight Measurement 2021-02-08 19:45:33 Estimated by Method Patient 02 Sat by Pulse 2021-02-08 19:41:59 99 /min Oximetry Body Mass Index 2021-02-08 19:41:59 24.2 Height 2021-02-08 19:41:59 172.72\S\68 Pulse Rate 2021-02-08 19:41:59 65 /min Respiratory Rate 2021-02-08 19:41:59 18 /min Temperature 2021-02-08 19:41:59 36.5\S\97.7 Weight 2021-02-08 19:41:59 39205.187\S\2544 Weight Measurement 2021-02-08 19:41:59 Estimated by Method Patient 02 Sat by Pulse 2021-02-08 19:27:42 99 /min Oximetry Body Mass Index 2021-02-08 19:27:42 24.2 Height 2021-02-08 19:27:42 172.72\S\68 Pulse Rate 2021-02-08 19:27:42 65 /min Respiratory Rate 2021-02-08 19:27:42 18 /min Temperature 2021-02-08 19:27:42 36.5\S\97.7 Weight 2021-02-08 19:27:42 84562.187\S\2544 Weight Measurement 2021-02-08 19:27:42 Estimated by Method Patient WEIGHT 2021-02-08 19:19:00 72.658063 kg HEIGHT 2021-02-08 19:19:00 172.72 cm Procedures Procedure Date / Time Performed Performing Clinician [facility] e ED LACERATION REPAIR 2022-04-20 20:07:00 Silvana Cole [facility] [place] 2022-04-20 19:06:25 [facility] [place] WO CONTRAST CT TRAUMA HEAD WO 2022-04-20 19:06:25 Silvana Cole [facility] Branch Encounters Start End Encounter Admission Attending Care Care Encounter Source Date/Time Date/Time Type Type Clinicians Facility Department ID 2021-02-08 Inpatient [facility] [id number] [facility] 18:52:00 32 2023-02-05 2023-02-05 Emergency [facility] [id number] [facility] 19:29:00 19:29:00 66 2023-02-05 2023-02-05 Emergency Emergency Landry Rich [facility] [id number] [facility] 19:29:00 19:29:00 66 2022-10-31 2022-10-31 Emergency [facility] [id number] [facility] 11:48:00 11:48:00 87 2022-10-31 2022-10-31 Emergency Emergency Landry Rich [facility] [id number] [facility] 11:48:00 11:48:00 87 2022-04-20 2022-04-20 Emergency X KYARA [facility] [id number] [facility] 13:54:00 15:22:00 SILVANA [facility] 2022-04-20 2022-04-20 Emergency [place], [facility] [id number] Univers 13:54:00 15:22:00 Silvana MORRIS 350.1.13.10 ity of [place] [id number] [facility] [id number] [address] 2021-06-01 2021-06-01 [facility] [id number] Univers 22:48:00 23:51:00 [place] 350.1.13.10 ity of [place] 4.2.7.2.686 [facility] [id number] [address] 2021-06-01 2021-06-01 Emergency [facility] [id number] Univers 22:48:00 [facility]48[facility] 2021-04-20 2021-04-20 Emergency Emergency [place], [facility] [id number] [facility] 06:54:00 12:54:00 Chrystan 25 2021-04-20 2021-04-20 Emergency [facility] [id number] [facility] 06:54:00 06:54:00 25 2021-04-20 2021-04-20 Emergency Emergency [place], [facility] [id number] [facility] 03:54:00 06:28:00 Lukuman 86 2021-03-08 2021-03-08 Emergency Emergency [place], [facility] [id number] [facility] 19:26:00 21:44:00 Lukuman 61 2021-03-08 2021-03-08 Emergency [facility] [id number] [facility] 19:26:00 19:26:00 61 2021-02-08 2021-02-08 Emergency [facility] [id number] [facility] 18:52:00 18:52:00 32 Results Test Description Test Time Test Comments Results Result Comments Source UA, Urinalysis Rflx Cult/Sedmt 2023-02-05 20:10:00 Test Item Value Reference Range Interpretation Comme nts Color,Urine (test code = UCOL) Yellow Yellow Clarity,Urine (test code = UCLAR) Clear Clear Ph, Urine (test code = UPH) 5.5 5.0-9.0 N Specific [place],Urine (test code = USG) 1.025 1.005-1.030 N [...] ULEU) Negative mg/dL Negative UF REFLEXUF REFLEXUrine [id number] 20:10:00 Test Item Value Reference Range Interpretation Comments RBC,Urine (test code = URBCUF) 0-2 /HPF 0-2 WBC,Urine (test code = UWBCUF) 0-5 /HPF 0-5 Epithelial Cell,Urine (test 0-5 /HPF 0-5 code = UECUF) Casts,Urine (test code = 0-5 /LPF None Seen UCASTUF) Bacteria,Urine (test code = None Seen /hpf None Seen UBACTUF) UF REFLEXUF REFLEXDrug Screen,[id number] 20:10:00 Test Item Value Reference Range Interpretation [...] code = UPROP) Complete Blood Count Auto [id number] 20:00:00 Test Item Value Reference Range Interpretation [...] code = NRBCP) 0 % Comprehensive Metabolic [id number] 20:00:00 Test Item Value Reference Range Interpretation [...] race coefficient. Additional information can be found at:[id number] cb_ egfr_summary_fl jenifer 5.pdf (kidney.o rg) [Automated [...] 46-116 N (test code = ALP) Ethanol [id number] 20:00:00 Test Item Value Reference Range Interpretation Comments Ethanol (test code 6 mg/dL The pharm acological = ETOH) response to blo od alcohol levels mayvary from individual to i ndividual. The fatal vivek ntrationhas been reported t o be >400mg/dL. UA, Urinalysis Rflx Cult/[id number] 12:23:00 Test Item Value Reference Range Interpretation Comments Color,Urine (test code = UCOL) Yellow Yellow Clarity,Urine (test code = Clear Clear UCLAR) Ph, Urine (test code = UPH) 6.5 5.0-9.0 N Specific [place],Urine (test >= 1.030 1.005-1.030 N code = [...] Negative mg/dL Negative code = ULEU) Drug Screen,[id number] 12:23:00 Test Item Value Reference Range Interpretation [...] code = UPROP) Complete Blood Count Auto [id number] 12:00:00 Test Item Value Reference Range Interpretation [...] code = NRBCP) 0 % Comprehensive Metabolic [id number] 12:00:00 Test Item Value Reference Range Interpretation [...] race coefficient. Additional information can be found at:[id number]_w cb_ egfr_summary_fl jenifer 5.pdf (kidney.o rg) [Automated [...] 46-116 N (test code = ALP) Ethanol [id number] 12:00:00 Test Item Value Reference Range Interpretation Comments Ethanol (test code < 3 mg/dL The pharm acological = ETOH) response to blo od alcohol levels mayvary from individual to i ndividual. The fatal vivek ntrationhas been reported t o be >400mg/dL. UC, Urine [id number] 09:45:00 Test Item Value Reference Range Interpretation Comments UC, Urine Culture (test NO GROWTH AFTER 48 code = UC) HOURS Complete Blood Count Auto [id number] 08:33:00 Test Item Value Reference Range Interpretation [...] (test code = NRBCP) 0 % Drug Screen,[id number] 08:33:00 Test Item Value Reference Range Interpretation [...] (test code = UPROP) UA, Urinalysis Rflx Cult/[id number] 08:33:00 Test Item Value Reference Range Interpretation Comments Color,Urine (test code = Yellow Y UCOL) Clarity,Urine (test code = Slightly Cloudy Clear A UCLAR) PH,Urine (test code = 5.5 5.5-8.5 UPH.XX) Specific [place],Urine >= 1.030 1.005-1.030 N (test code = [...] Negative (test code = ULEU) Comprehensive Metabolic [id number] 08:33:00 Test Item Value Reference Range Interpretation [...] 70 U/L 46-116 N = ALP) Ethanol [id number] 08:33:00 Test Item Value Reference Range Interpretation Comments Ethanol (test code = ETOH) < 3 mg/dL Urine [id number] 08:33:00 Test Item Value Reference Range Interpretation Comments RBC,Urine (test code = 0-1 /HPF None Seen URBC.XX) WBC,Urine (test code = 0-1 /HPF None Seen UWBC.XX) Squamous Epithelial Occasional /HPF None Seen Cell,Urine (test code = USQEPI.XX) Amorphous Crystals,Urine Moderate /HPF None Seen A (test code = UAMSE) Bacteria,Urine (test code = Trace /HPF None Seen A UBACT) Coronavirus PCR, COVID19 [id number] 08:28:00 Test Item Value Reference Range Interpretation Comments Coronavirus PCR, For use under Emergency COVID19 Rapid (test Use Authorization (EUA) code = SARSCOV2) only. Coronavirus PCR, Reference Range: COVID19 Rapid (test Negative code = DDSZWEH83.1) SARS-CoV-2 PCR Result: Negative by PCR (test code = SARS-CoV-2 PCR Result:) COVID-19 Status: AsymptomaticComplete Blood Count Auto [id number] 21:00:00 Test Item Value Reference Range Interpretation [...] NRBCP) 0 % Complete Blood Count Auto [id number] 20:55:00 Test Item Value Reference Range Interpretation [...] code = NRBCP) 0 % Comprehensive Metabolic [id number] 20:55:00 Test Item Value Reference Range Interpretation [...] 78 U/L 46-116 N = ALP) Ethanol [id number] 20:55:00 Test Item Value Reference Range Interpretation Comments Ethanol (test code = ETOH) < 3 mg/dL Coronavirus PCR, COVID19 [id number] 20:52:00 Test Item Value Reference Range Interpretation Comments Coronavirus PCR, For use under Emergency COVID19 Rapid (test Use Authorization (EUA) code = SARSCOV2) only. Coronavirus PCR, Reference Range: COVID19 Rapid (test Negative code = GJEEDKM12.1) SARS-CoV-2 PCR Result: Negative by PCR (test code = SARS-CoV-2 PCR Result:) COVID-19 Status: AsymptomaticDrug Screen,[id number] 20:50:00 Test Item Value Reference Range Interpretation [...] Notes Date/Time Note Provider Source 2021-04-20 11:53:00-00:00 [facility] [address] [place] [address] Emergency Department Document Signed Patient: Chika Schmid Medical Record#: [id number] : 1990 Acct:[id number] Age/Sex: 31 / M Admit/Reg Date: 04/20/21 Loc: [facility] Room: Report Number: [id number]: Tete Sebastian MD Arrival - [...] No rashes Neuro: Alert, oriented x 3, receivable executive II-XII grossly intact. Sensation and motor function [...] % (Auto) 50.8, Lymph % (Auto) 34.7, O'Brien % (Auto) 8.7, Eo s % (Auto) 4.8, Baso % (Auto) 0.8, Neut # (Auto) 4.6, Lymph # (Auto) 3.12, O'Brien # (Auto) 0.78, Eo s # (Auto) 0.43, Baso # (Auto) 0.07, Immature Gran # (Auto) 0.02, Absolute Nucleated RBC 0, Nucleated RBC % (auto) 0 04/20/21 08:33: Urine Color Yellow, Urine Clarity Slightly cloudy A, Urine pH 5.5, Ur Specific [place] >= 1.030, Urine Prot ein Negative, Urine [...] 11:00 Dose: 500 mg Documented by: [id number] [facility]/COURSE Vital Signs Temperature 37.0 C 04/20/21 [...] by Pulse Oximetry 99 04/20/21 07:20 - [facility] Medical Decision Making Narrative: 04/20/21 12:13 [...] 04/20/21 1214 DD/ 1153 TD/TT: 04/20/21 1153 Apartment Property Manager: RICO cc: MUSHTAQ* Pcp-Md MARIN Rondon
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
[2023-04-18 07:31] VITALS: TEMP 98.3; O2SAT 98
[2023-04-18 07:32] VITALS: BP 124/78
== END 2023-04-18 07:25 | disposition home or self-care (01) ==
LOC: ER 06:56
DX: S80.212A Abrasion, left knee, initial encounter (principal); S80.211A Abrasion, right knee, initial encounter; M25.562 Pain in left knee; M25.561 Pain in right knee
CPT/HCPCS: 99283

== ENCOUNTER 2024-04-06 11:18 | Emergency (ER) | payer OTHER ==
[2024-04-06 12:16] LABS: Absolute Lymphocytes (CBC) 1.3 K/uL (0.7-4.9); Absolute Monocytes 0.6 K/uL (0.1-1.3); Absolute Neutrophil 5.7 K/uL (1.8-8.0); Basophils % 0.2 % (0-1.3); Eosinophils % 0.2 % (0-4.4); Hematocrit 43.3 % (39.6-49.0); Hemoglobin 14.8 g/dL (13.6-17.9); Lymphocytes % 16.9 % (15.3-44.8); MCH 31.6 pg (27.0-35.0); MCHC 34.2 g/dL (32.0-36.0); MCV 92.3 fL (80-100); Monocytes % 7.6 % (3.3-12.3); Neutrophils % 75.1 % (41.7-73.7); Platelets 216 thou/uL (152-406); RBC Red Blood Cell Count 4.69 M/uL (4.33-5.43); Red Cell Distribution Width 12.2 % (12.1-15.2)
[2024-04-06 12:25] LABS: ALT/SGPT 18 U/L (16-61); Albumin/Globulin Ratio 1.3 (1.1-1.8); Alkaline Phosphatase 78 U/L (45-117); Anion Gap 11.7 mEq/L (5.0-15.0); BUN Blood Urea Nitrogen 10 mg/dL (7-18); Bicarbonate 23 mEq/L (21-32); Bilirubin Total 0.7 mg/dL (0.2-1.0); Globulin 3.2 g/dL (2.3-3.5); Glomerular Filtration Rate 104 ml/min (=/>90); Glucose Level 102 mg/dL (74-106); Lipase 20 U/L (13-75); Potassium 3.7 mEq/L (3.5-5.1); Protein, Total 7.2 g/dL (6.4-8.2); Sodium Level 134 mEq/L (136-145)
[2024-04-06 12:31] LABS: AST/SGOT < 10 U/L (15-37)
[2024-04-06 13:15] VITALS: BP 112/74; TEMP 98.7; O2SAT 99
--- NOTE | 2024-04-06 18:02 | EDPHYS ---
Physician Documentation [facility] Name: Todd Schmid Age: 33 yrs Sex: Male : 1990 Arrival Date: 04/06/2024 Time: 11:18 Bed 12 Private MD: ED Physician Liban Doan HPI: 04/06 11:29 This 33 yrs old Male presents to ER via EMS with complaints of ec2 Nausea/Vomiting. 11:29 Patient arrives today for evaluation of nausea and vomiting. Patient reports that he ec2 has been having worsening nausea and vomiting throughout the day. Patient reports he has a history of alcohol abuse, regular drinks about a 12 pack/day, states that his last drink was yesterday. States that he feels anxious as well. Patient reports no significant abdominal pain. Reports no previous abdominal surgeries. Denies any fevers or chills, cough or cold symptoms.. Historical: - Home Meds: 11:28 Atarax Oral [Active]; ll1 - PMHx: 11:28 None; ll1 - PSHx: 11:21 arm surgery; ll1 - Immunization history:: Adult Immunizations up to date. - Infectious Disease History:: Denies. - Social history:: Smoking status: Patient reports the use of cigarette tobacco products, smokes one-half pack cigarettes per day. ROS: 11:29 Constitutional: as per hpi ec2 Exam: 11:29 Constitutional: GEN: NAD Head: atraumatic Eyes: EOMI Ears: External ears are ec2 normal. CV: regular rate LUNGS: no respiratory distress ABD: non-distended, soft, nontender, guarding, not rigid. SKIN: no evidence of rashes MSK: no evidence of trauma NEURO: moves all extremities equally. Psych: Slightly anxious individual. Vital Signs: 11:24 BP 160 / 90; Pulse 93; Resp 18; Temp 98.7; Pulse Ox 99% ; Weight 77.11 kg; Height 5 ft. ll1 8 in. ; Pain 4/10; 12:09 BP 137 / 86; Pulse 73; Resp 16 S; Pulse Ox 99% on R/A; as6 12:44 BP 112 / 74; Pulse 67; Resp 18; Pulse Ox 99% ; as6 11:24 Body Mass Index 25.85 (77.11 kg, 172.72 cm) ll1 11:24 Pain Scale: Adult ll1 MDM: 11:25 Patient medically screened. ec2 11:29 Data reviewed: vital signs. ED course: Patient arrives today for evaluation of nausea ec2 and vomiting. Examination remarkable for well-appearing nontoxic in which was otherwise in no acute distress she was slightly anxious and has a benign abdomen. Will obtain lab work, give the patient Valium, crystalloid as well as antiemetic. Differential includes alcohol withdrawal, gastroenteritis, pancreatitis.. 12:32 ED course: CBC is reassuring, metabolic profile with appropriate lecture lites, lipase ec2 within normal ranges. On reassessment patient is well-appearing in no acute distress. Will discharge home, return precautions given. . 04/06 11:23 Order name: CBC with Diff; Complete Time: 12:31 ec2 04/06 11:23 Order name: CMP; Complete Time: 12:31 ec2 04/06 11:23 Order name: Lipase; Complete Time: 12:31 ec2 04/06 11:23 Order name: IV Saline Lock; Complete Time: 12:03 ec2 04/06 11:23 Order name: Labs collected and sent; Complete Time: 12:03 ec2 Administered Medications: 12:09 Drug: NS 0.9% IV 1000 ml IV at 1 bolus Per protocol; 1000 mL bolus Route: IV; Rate: 1 as6 bolus; Site: right antecubital; 12:46 Follow up: Response: No adverse reaction; IV Status: Completed infusion; IV Intake: as6 1000ml 12:09 Drug: Ondansetron IVP 4 mg IVP once; over 2 minutes Route: IVP; Site: right antecubital;as6 12:46 Follow up: Response: No adverse reaction as6 12:09 Drug: Diazepam IVP 5 mg IVP once Route: IVP; Site: right antecubital; as6 12:46 Follow up: Response: No adverse reaction as6 Disposition Summary: 04/06/24 12:32 Discharge Ordered Notes: Location: Home ec2 Condition: Stable ec2 Diagnosis - Nausea with vomiting, unspecified ec2 Followup: ec2 - With: Private Physician - When: - Reason: Re-evaluation by your physician Discharge Instructions: - Discharge Summary Sheet ec2 - Nausea and Vomiting, Adult ec2 Forms: - Medication Reconciliation Form ec2 - Antibiotic Education ec2 - Prescription Opioid Use ec2 - Patient Portal Instructions ec2 - Leadership Thank You Letter ec2 Prescriptions: - Zofran 4 mg Oral Tablet - take 1 tablet ORAL route every 12 hours As needed; 20 tablet; Refills: 0, ec2 Product Selection Permitted Signatures: Dispatcher [employer] Marina Hall, CARLA RN ll1 Andrews Talley RN RN as6 Liban Doan MD MD ec2 Corrections: (The following items were deleted from the chart) 11:23 11:23 CBC+H.LAB.BRZ ordered. EDMS EDMS 11:23 11:23 COMPREHENSIVE METABOLIC PANEL+C.LAB.BRZ ordered. EDMS EDMS 11:23 11:23 LIPASE+C.LAB.BRZ ordered. EDMS EDMS 11:28 11:21 PMHx: Schizophrenia; ll1 ll1 11:31 11:29 Constitutional: GEN: NAD Head: atraumatic Eyes: EOMI Ears: External ears are ec2 normal. CV: regular rate LUNGS: no respiratory distress ABD: non-distended, soft, nontender, guarding, not rigid. SKIN: no evidence of rashes MSK: no evidence of trauma NEURO: moves all extremities equally ec2
--- NOTE | 2024-04-06 18:02 | ER ---
Nurse's Notes [facility] [place] Name: Todd Schmid Age: 33 yrs Sex: Male : 1990 Arrival Date: 04/06/2024 Time: 11:18 Bed 12 Private MD: Diagnosis: Nausea with vomiting, unspecified Presentation: 04/06 11:24 Chief complaint: Patient states: N/V, shaky, abdominal cramps started yesterday. Last ll1 beer yesterday morning. Coronavirus screen: Client denies travel out of the [place] in the last 14 days. At this time, the client does not indicate any symptoms associated with coronavirus-19. Ebola Screen: Patient denies travel to an Ebola-affected area in the 21 days before illness onset. Initial Sepsis Screen: Does the patient meet any 2 criteria? No. Patient's initial sepsis screen is negative. Does the patient have a suspected source of infection? No. Patient's initial sepsis screen is negative. Risk Assessment: Do you want to hurt yourself or someone else? Patient reports no desire to harm self or others. Onset of symptoms was April 05, 2024. 11:24 Method Of Arrival: EMS ll1 11:24 Acuity: MADHAV 3 ll1 Triage Assessment: 11:27 General: Appears uncomfortable, ill, Behavior is cooperative, appropriate for age, ll1 anxious. General: Reports fatigue for. Pain: Complains of pain in abdomen Pain currently is 4 out of 10 on a pain scale. Quality of pain is described as aching. GI: Reports cramping, nausea, vomiting. Historical: - Home Meds: 11:28 Atarax Oral [Active]; ll1 - PMHx: 11:28 None; ll1 - PSHx: 11:21 arm surgery; ll1 - Immunization history:: Adult Immunizations up to date. - Infectious Disease History:: Denies. - Social history:: Smoking status: Patient reports the use of cigarette tobacco products, smokes one-half pack cigarettes per day. Screenin:10 [facility] ED Fall Risk Assessment (Adult) History of falling in the last 3 months, as6 including since admission No falls in past 3 months (0 pts) Confusion or Disorientation No (0 pts) Intoxicated or Sedated No (0 pts) Impaired Gait No (0 pts) Mobility Assist Device Used No (0 pt) Altered Elimination No (0 pt) Score/Fall Risk Level 0 - 2 = Low Risk Oriented to surroundings, Maintained a safe environment, Educated pt \T\ family on fall prevention, incl call for assistance when getting out of bed, Assessed \T\ reinforced patient's understanding of fall precautions. Abuse screen: Denies threats or abuse. Denies injuries from another. Nutritional screening: No deficits noted. Tuberculosis screening: No symptoms or risk factors identified. Assessment: 12:09 General: Appears slender, Behavior is cooperative, anxious, restless, pt talking to as6 self . GI: Reports nausea. Vital Signs: 11:24 BP 160 / 90; Pulse 93; Resp 18; Temp 98.7; Pulse Ox 99% ; Weight 77.11 kg; Height 5 ft. ll1 8 in. ; Pain 4/10; 12:09 BP 137 / 86; Pulse 73; Resp 16 S; Pulse Ox 99% on R/A; as6 12:44 BP 112 / 74; Pulse 67; Resp 18; Pulse Ox 99% ; as6 11:24 Body Mass Index 25.85 (77.11 kg, 172.72 cm) ll1 11:24 Pain Scale: Adult ll1 ED Course: 11:21 Patient arrived in ED. mr 11:21 Arm band placed on. ll1 11:22 Liban Doan MD is Attending Physician. ec2 11:26 Triage completed. ll1 11:53 Andrews Talley, CARLA is Primary Nurse. as6 12:03 CBC with Diff Sent. bc6 12:03 CMP Sent. bc6 12:03 Lipase Sent. bc6 12:03 Initial lab(s) drawn, by nm, sent to lab. Inserted saline lock: 20 gauge in right bc6 antecubital area, using aseptic technique. Blood collected. 12:10 Bed in low position. Call light in reach. Side rails up X2. Client placed on continuous as6 cardiac and pulse oximetry monitoring. NIBP monitoring applied. 12:45 Provided Education on: rx teaching. as6 12:45 No provider procedures requiring assistance completed. IV discontinued, intact, as6 bleeding controlled, No redness/swelling at site. Pressure dressing applied. Administered Medications: 12:09 Drug: NS 0.9% IV 1000 ml IV at 1 bolus Per protocol; 1000 mL bolus Route: IV; Rate: 1 as6 bolus; Site: right antecubital; 12:46 Follow up: Response: No adverse reaction; IV Status: Completed infusion; IV Intake: as6 1000ml 12:09 Drug: Ondansetron IVP 4 mg IVP once; over 2 minutes Route: IVP; Site: right antecubital;as6 12:46 Follow up: Response: No adverse reaction as6 12:09 Drug: Diazepam IVP 5 mg IVP once Route: IVP; Site: right antecubital; as6 12:46 Follow up: Response: No adverse reaction as6 Medication: 12:10 VIS not applicable for this client. as6 Intake: 12:46 IV: 1000ml; Total: 1000ml. as6 Outcome: 12:32 Discharge ordered by . ec2 12:45 Discharged to home ambulatory, as6 12:45 Condition: stable 12:45 Discharge instructions given to patient, Instructed on discharge instructions, follow up and referral plans. medication usage, Demonstrated understanding of instructions, follow-up care, medications, Prescriptions given X 1, 12:46 Patient left the ED. as6 Signatures: Valentina Gray, Reg Reg mr Marina Saenz, CARLA RN ll1 Andrews Talley RN RN as6 Aleena Groves6 Liban Doan MD MD ec2 Corrections: (The following items were deleted from the chart) 11:28 11:21 PMHx: Schizophrenia; ll1 ll1
== END 2024-04-06 12:46 | disposition home or self-care (01) ==
LOC: ER 11:18
DX: R11.2 Nausea with vomiting, unspecified (principal)
CPT/HCPCS: 36415; 80053; 83690; 85025

== ENCOUNTER 2024-04-14 20:45 | Emergency (ER) | payer OTHER ==
[2024-04-14] MEDS ORDERED: Ringers Lactate 1,000 ML IV ONE (21:07)
[2024-04-14] MEDS ORDERED: ONDANSETRON 4 MG/2 ML VIAL ONE (21:07)
[2024-04-14 21:13] LABS: Absolute Basophils 0.1 K/uL (0-0.5); Absolute Eosinophils 0.1 K/uL (0-0.5); Absolute Lymphocytes (CBC) 3.3 K/uL (0.7-4.9); Absolute Monocytes 0.7 K/uL (0.1-1.3); Absolute Neutrophil 4.9 K/uL (1.8-8.0); Basophils % 0.8 % (0-1.3); Eosinophils % 1.6 % (0-4.4); Hematocrit 42.8 % (39.6-49.0); Hemoglobin 14.5 g/dL (13.6-17.9); Lymphocytes % 36.2 % (15.3-44.8); MCH 31.3 pg (27.0-35.0); MCHC 33.9 g/dL (32.0-36.0); MCV 92.3 fL (80-100); MPV 8.8 fL (7.6-11.3); Monocytes % 7.3 % (3.3-12.3); Neutrophils % 54.1 % (41.7-73.7); Nucleated Red Blood Cells % 0.3 % (0-0); Platelets 217 thou/uL (152-406); RBC Red Blood Cell Count 4.63 M/uL (4.33-5.43); Red Cell Distribution Width 12.6 % (12.1-15.2)
[2024-04-14 21:45] LABS: Albumin 3.6 g/dL (3.4-5.0); Albumin/Globulin Ratio 1.2 (1.1-1.8); Alkaline Phosphatase 68 U/L (45-117); Anion Gap 8.7 mEq/L (5.0-15.0); BUN Blood Urea Nitrogen 11 mg/dL (7-18); Bicarbonate 26 mEq/L (21-32); Bilirubin Total 0.3 mg/dL (0.2-1.0); Globulin 3.1 g/dL (2.3-3.5); Glomerular Filtration Rate 117 ml/min (=/>90); Glucose Level 93 mg/dL (74-106); NT PRO-BNP 44 pg/mL (<125); Potassium 3.7 mEq/L (3.5-5.1); Protein, Total 6.7 g/dL (6.4-8.2); Sodium Level 138 mEq/L (136-145)
[2024-04-14 21:46] LABS: ALT/SGPT < 14 U/L (16-61); AST/SGOT < 10 U/L (15-37); Bilirubin Direct < 0.2 mg/dL (0-0.2); Bilirubin Indirect, Calculated 0.1 mg/dL (0.2-0.8); Troponin High Sensitivity < 3.0 pg/mL (<58.9)
--- NOTE | 2024-04-14 21:49 | RAD REPORT ---
EXAM DESCRIPTION: RAD - Chest Single View - 04/14/2024 9:36 pm CLINICAL HISTORY: CHEST PAIN COMPARISON: No comparisons FINDINGS: Lines: None. Lungs: No evidence of edema or pneumonia. Pleural: No significant pleural effusions or pneumothorax. Cardiac: The heart size is within normal limits. Mediastinum: Within normal limits. Bones: No acute fractures. Other: None IMPRESSION: No acute cardiopulmonary disease.
--- NOTE | 2024-04-14 21:51 | ER ---
Nurse's Notes [facility] Name: Todd Schmid Age: 34 yrs Sex: Male : 1990 Arrival Date: 04/14/2024 Time: 20:45 Bed 2 Private MD: Diagnosis: Anxiety, chest pain resolved, nausea Presentation: 04/14 20:44 Chief complaint: Chief complaint: EMS states: 34 year old male reports feeling very ha1 anxious, nausea, chest pressure. out of anxiety medication. 20:45 Coronavirus screen: Vaccine status: Patient reports receiving the 2nd dose of the covid ha1 vaccine. b[place]ombate. Ebola Screen: No symptoms or risks identified at this time. Initial Sepsis Screen: Does the patient meet any 2 criteria? No. Patient's initial sepsis screen is negative. Does the patient have a suspected source of infection? No. Patient's initial sepsis screen is negative. Risk Assessment: Do you want to hurt yourself or someone else? Patient reports no desire to harm self or others. Onset of symptoms was April 14, 2024. 20:45 Method Of Arrival: EMS: [facility] ha1 20:45 Acuity: MADHAV 3 ha1 Triage Assessment: 20:45 General: Appears uncomfortable, Behavior is cooperative, anxious. Pain: Complains of ha1 pain in chest Pain does not radiate. Pain currently is 6 out of 10 on a pain scale. Quality of pain is described as pressure. Neuro: Level of Consciousness is awake, alert, obeys commands, Oriented to person, place, time, situation. Cardiovascular: Capillary refill < 3 seconds Patient's skin is warm and dry. Cardiovascular: Heart tones S1 S2 present Rhythm is sinus rhythm. Respiratory: Airway is patent Respiratory effort is even, unlabored. GI: Abdomen is flat, non-distended, Reports nausea. : No signs and/or symptoms were reported regarding the genitourinary system. Derm: Skin is pink, warm \T\ dry. Historical: - Allergies: 20:58 No Known Allergies; ha1 - Home Meds: 20:58 Atarax Oral [Active]; ha1 - PMHx: 20:58 Anxiety; ha1 - PSHx: 20:58 arm surgery; ha1 - Immunization history:: Adult Immunizations up to date. - Infectious Disease History:: Denies. - Social history:: Smoking status: Patient reports the use of cigarette tobacco products, smokes one pack cigarettes per day. Screenin:45 [facility] ED Fall Risk Assessment (Adult) History of falling in the last 3 months, ha1 including since admission No falls in past 3 months (0 pts) Confusion or Disorientation No (0 pts) Intoxicated or Sedated No (0 pts) Impaired Gait No (0 pts) Mobility Assist Device Used No (0 pt) Altered Elimination Score/Fall Risk Level 0 - 2 = Low Risk Oriented to surroundings, Maintained a safe environment, Educated pt \T\ family on fall prevention, incl call for assistance when getting out of bed, Hourly rounding (assess needs \T\ fall precautionary measures) done. 21:01 Abuse screen: Denies threats or abuse. Denies injuries from another. Nutritional ha1 screening: No deficits noted. Tuberculosis screening: No symptoms or risk factors identified. Assessment: 20:45 Reassessment: see triage assessment. ha1 21:50 Reassessment: Patient appears in no apparent distress at this time. Patient and/or jb4 family updated on plan of care and expected duration. Pain level reassessed. Patient is alert, oriented x 3, equal unlabored respirations, skin warm/dry/pink. 22:06 Reassessment: Patient and/or family updated on plan of care and expected duration. Pain ha1 level reassessed. Patient is alert, oriented x 3, equal unlabored respirations, skin warm/dry/pink. Patient denies pain at this time. Patient states feeling better. Patient states symptoms have improved. Vital Signs: 20:45 BP 122 / 67; Pulse 71; Resp 16 S; Temp 97.8(T); Pulse Ox 99% on R/A; Weight 77.11 kg; ha1 Height 5 ft. 8 in. ; 21:50 BP 130 / 79; Pulse 70; Resp 14; Pulse Ox 98% on R/A; jb4 20:45 Body Mass Index 25.85 (77.11 kg, 172.72 cm) ha1 ED Course: 20:45 Patient arrived in ED. ss 20:45 Jessika Marks MD is Attending Physician. sp3 20:45 Patient has correct armband on for positive identification. Bed in low position. Call ha1 light in reach. Side rails up X 1. Provided Education on: follow ups . Client placed on continuous cardiac and pulse oximetry monitoring. NIBP monitoring applied. environmental monitoring specialist on. 20:45 Arm band placed on right wrist. ha1 20:55 Triage completed. ha1 21:02 Basic Metabolic Panel Sent. ha1 21: CBC with Diff Sent. ha1 21:02 LFT's Sent. ha1 21:02 Magnesium Sent. ha1 21:02 NT PRO-BNP Sent. ha1 21:02 Troponin HS Sent. ha1 21:28 Matt Sapp, RN is Primary Nurse. jb4 21:38 XRAY Chest (1 view) In Process Unspecified. EDMS 21:50 IV discontinued, intact, bleeding controlled, No redness/swelling at site. Pressure ha1 dressing applied. O2 via room air. 22:00 No provider procedures requiring assistance completed. ha1 Administered Medications: 21:27 Drug: Lactated Ringers Solution IV 1000 ml IV at 150 bolus continuous Route: IV; Rate: jb4 bolus; Site: left antecubital; 22:05 Follow up: Response: No adverse reaction; IV Status: Completed infusion; IV Intake: ha1 1000ml 21:27 Drug: Ondansetron IVP 4 mg IVP once; over 2 minutes Route: IVP; Site: left antecubital; jb4 22:00 Follow up: Response: No adverse reaction ha1 Medication: 22:00 VIS not applicable for this client. ha1 Intake: 22:05 IV: 1000ml; Total: 1000ml. ha1 Outcome: 21:51 Discharge ordered by . sp3 22:00 Discharged to home ambulatory, ha1 22:00 Condition: stable 22:00 Discharge instructions given to patient, Instructed on discharge instructions, follow up and referral plans. medication usage, Demonstrated understanding of instructions, follow-up care, medications, Prescriptions given X 1, 22:08 Patient left the ED. ha1 Signatures: Dispatcher [employer] EDMS Aleta Guerrier RN RN Matt Sapp RN RN jb4 Jessika Marks MD MD sp3 Nayana Mota RN RN ha1 Corrections: (The following items were deleted from the chart) 20:55 20:51 Chief complaint: ha1 ha1 20:58 20:45 Chief complaint: ha1 ha1
--- NOTE | 2024-04-14 21:51 | EDPHYS ---
Physician Documentation [facility] Name: Todd Schmid Age: 34 yrs Sex: Male : 1990 Arrival Date: 04/14/2024 Time: 20:45 Bed 2 Private MD: ED Physician Jessika Marks HPI: 04/14 20:47 This 34 yrs old Male presents to ER via Unassigned with complaints of Chest Pain, sp3 Anxiety. 20:47 34-year-old male with history of anxiety and depression not currently on any sp3 significant medications except ondansetron which helps with the anxiety induced nausea now presents to the ED due to chest pain and anxiety and vomiting secondary to being out of his Zofran which he states is at the pharmacy ready for pickup tomorrow. He is requesting 1 IV dose and some IV fluids and subsequent discharge. Symptoms are similar to his prior presentations. Patient has no history of hypertension, diabetes, cardiac disease, arrhythmia, sepsis, shock, any other concerning history including PE. Patient denies headache, neck pain, shortness of breath, back pain, diarrhea, rash, syncope, near syncope, known sick contacts, prolonged immobilization, prior DVT or PE, any other signs or symptoms on ROS at this time.. Historical: - Allergies: 20:58 No Known Allergies; ha1 - Home Meds: 20:58 Atarax Oral [Active]; ha1 - PMHx: 20:58 Anxiety; ha1 - PSHx: 20:58 arm surgery; ha1 - Immunization history:: Adult Immunizations up to date. - Infectious Disease History:: Denies. - Social history:: Smoking status: Patient reports the use of cigarette tobacco products, smokes one pack cigarettes per day. ROS: 20:48 Constitutional: Negative for fever, chills, and weight loss, Eyes: Negative for injury, sp3 pain, redness, and discharge, Neck: Negative for injury, pain, and swelling, Cardiovascular: Negative for chest pain, palpitations, and edema, Respiratory: Negative for shortness of breath, cough, wheezing, and pleuritic chest pain, Back: Negative for injury and pain, MS/Extremity: Negative for injury and deformity, Skin: Negative for injury, rash, and discoloration, Neuro: Negative for headache, weakness, numbness, tingling, and seizure, Psych: Negative for depression, anxiety, suicide ideation, homicidal ideation, and hallucinations, Allergy/Immunology: Negative for hives, rash, and allergies, Endocrine: Negative for neck swelling, polydipsia, polyuria, polyphagia, and marked weight changes, Hematologic/Lymphatic: Negative for swollen nodes, abnormal bleeding, and unusual bruising, 20:48 All other systems are negative, Exam: 20:48 Constitutional: This is a well developed, well nourished patient who is awake, alert, sp3 and in no acute distress. Head/Face: Normocephalic, atraumatic. Eyes: Pupils equal round and reactive to light, extra-ocular motions intact. Lids and lashes normal. Conjunctiva and sclera are non-icteric and not injected. Cornea within normal limits. Periorbital areas with no swelling, redness, or edema. Neck: Trachea midline, no thyromegaly or masses palpated, and no cervical lymphadenopathy. Supple, full range of motion without nuchal rigidity, or vertebral point tenderness. No Meningismus. Chest/axilla: Normal chest wall appearance and motion. Nontender with no deformity. No lesions are appreciated. Cardiovascular: Regular rate and rhythm with a normal S1 and S2. No gallops, murmurs, or rubs. Normal PMI, no JVD. No pulse deficits. Respiratory: Lungs have equal breath sounds bilaterally, clear to auscultation and percussion. No rales, rhonchi or wheezes noted. No increased work of breathing, no retractions or nasal flaring. Abdomen/GI: Soft, non-tender, with normal bowel sounds. No distension or tympany. No guarding or rebound. No evidence of tenderness throughout. Back: No spinal tenderness. No costovertebral tenderness. Full range of motion. Skin: Warm, dry with normal turgor. Normal color with no rashes, no lesions, and no evidence of cellulitis. MS/ Extremity: Pulses equal, no cyanosis. Neurovascular intact. Full, normal range of motion. Neuro: Awake and alert, GCS 15, oriented to person, place, time, and situation. Cranial nerves II-XII grossly intact. Motor strength 5/5 in all extremities. Sensory grossly intact. Cerebellar exam normal. Normal gait. 20:48 Psych: Patient appears anxious but no other psychiatric symptoms. He denies SI, HI, psychosis. Patient does not appear to be responding to internal stimuli. No active vomiting. Vital signs are normal.. 21:07 ECG was reviewed by the Attending Physician. EKG demonstrates normal sinus rhythm at 73 sp3 bpm with normal intervals, normal QRS, normal axis, normal ST's ST segments without evidence of acute ischemia. Vital Signs: 20:45 BP 122 / 67; Pulse 71; Resp 16 S; Temp 97.8(T); Pulse Ox 99% on R/A; Weight 77.11 kg; ha1 Height 5 ft. 8 in. ; 21:50 BP 130 / 79; Pulse 70; Resp 14; Pulse Ox 98% on R/A; jb4 20:45 Body Mass Index 25.85 (77.11 kg, 172.72 cm) ha1 MDM: 20:45 Patient medically screened. sp3 20:50 Data reviewed: vital signs, nurses notes, old medical records, lab test result(s), EKG, sp3 radiologic studies. ED course: 34-year-old male with history of anxiety with likely anxiety induced nausea and gastritis. Admit highly suspicious for acute coronary syndrome, PE, TAD, pneumonia, sepsis, shock, mediastinitis, or any other critical process at this time. Will administer ondansetron and IV fluids and check laboratory values, chest x-ray and EKG. If workup is negative we will safely discharge patient home at this time.. 21:49 ED course: Patient tolerating p.o. after Zofran. Workup is negative. We will safely sp3 discharged home at this time.. 04/14 20:46 Order name: Basic Metabolic Panel; Complete Time: 21:49 sp3 04/14 20:46 Order name: CBC with Diff; Complete Time: 21:46 sp3 04/14 20:46 Order name: LFT's; Complete Time: 21:49 3 04/14 20:46 Order name: Magnesium; Complete Time: 21:49 sp3 04/14 20:46 Order name: NT PRO-BNP; Complete Time: 21:49 3 04/14 20:46 Order name: Troponin HS; Complete Time: 21:49 3 04/14 20:46 Order name: XRAY Chest (1 view); Complete Time: 21:50 3 04/14 20:46 Order name: Cardiac monitoring; Complete Time: 20:50 sp3 04/14 20:46 Order name: EKG - Nurse/Tech; Complete Time: 21:02 sp3 04/14 20:46 Order name: IV Saline Lock; Complete Time: 20:50 sp3 04/14 20:46 Order name: Labs collected and sent; Complete Time: 20:50 sp3 04/14 20:46 Order name: O2 Per Protocol; Complete Time: 20:50 sp3 04/14 20:46 Order name: O2 Sat Monitoring; Complete Time: 20:50 sp3 Administered Medications: 21:27 Drug: Lactated Ringers Solution IV 1000 ml IV at 150 bolus continuous Route: IV; Rate: jb4 bolus; Site: left antecubital; 22:05 Follow up: Response: No adverse reaction; IV Status: Completed infusion; IV Intake: ha1 1000ml 21:27 Drug: Ondansetron IVP 4 mg IVP once; over 2 minutes Route: IVP; Site: left antecubital; jb4 22:00 Follow up: Response: No adverse reaction ha1 Disposition Summary: 04/14/24 21:51 Discharge Ordered Notes: Location: Home sp3 Condition: Stable sp3 Diagnosis - Anxiety, chest pain resolved, nausea sp3 Followup: sp3 - With: Private Physician - When: Upon discharge from the Emergency Department - Reason: Continuance of care Discharge Instructions: - Discharge Summary Sheet sp3 - Managing Anxiety, Adult sp3 Forms: - Medication Reconciliation Form sp3 - Antibiotic Education sp3 - Prescription Opioid Use sp3 - Patient Portal Instructions sp3 - Leadership Thank You Letter sp3 Prescriptions: - ondansetron 8 mg Oral Tablet,disintegrating - take 1 tablet ORAL route every 12 hours; 20 tablet; Refills: 0, Product sp3 Selection Permitted Signatures: Dispatcher [employer] EDMS Matt Sapp, RN RN jb4 Jessika Marks MD MD sp3 Nayana Mota RN RN ha1 Corrections: (The following items were deleted from the chart) 20:47 20:47 BASIC METABOLIC PANEL+C.LAB.BRZ ordered. EDMS EDMS 20:47 20:47 CBC+H.LAB.BRZ ordered. EDMS EDMS 20:47 20:47 HEPATIC FUNCTION+C.LAB.BRZ ordered. EDMS EDMS 20:47 20:47 MAGNESIUM+C.LAB.BRZ ordered. EDMS EDMS : 20:47 PROBNP+C.LAB.BRZ ordered. EDMS EDMS 20:47 Troponin High Sensitivity+C.LAB.BRZ ordered. EDMS EDMS
[2024-04-14 22:25] VITALS: BP 130/79; TEMP 97.8; O2SAT 98
--- NOTE | 2024-04-15 14:07 | EKG ---
Test Date: 2024-04-14 Test Time: 20:53:45 Diet Technician Registered: LADY MEASUREMENT RESULTS: Intervals: Rate: 73 MN: 150 QRSD: 90 QT: 370 QTc: 407 Somis: P: 43 MN: 150 QRS: 51 T: 65 INTERPRETIVE STATEMENTS: Normal sinus rhythm with sinus arrhythmia Normal ECG Compared to ECG 10/17/2021 03:53:31 ST (T wave) deviation no longer present Electronically Signed On 04-15-24 14:06:21 CDT by Paul Ocampo
== END 2024-04-14 22:08 | disposition home or self-care (01) ==
LOC: ER 20:45
DX: F41.9 Anxiety disorder, unspecified (principal); R11.0 Nausea; F17.210 Nicotine dependence, cigarettes, uncomplicated
CPT/HCPCS: 85025; 80048; 36415; 83735; 80076; 84484; 83880; 71045; J2405; J7120; 93005; 96361; 96374; 99285

== ENCOUNTER 2025-06-05 19:38 | Emergency (ER) | payer OTHER ==
[2025-06-05] MEDS ORDERED: LORazepam 2 MG/ML VIAL ONE ×3 (20:07→21:37)
[2025-06-05 21:02] LABS: METHAMPHETAM NEGATIVE (NEGATIVE); THC Cannibis NEGATIVE (NEGATIVE)
--- NOTE | 2025-06-05 21:49 | ER ---
Nurse's Notes [facility] Name: Todd Schmid Age: 35 yrs Sex: Male : 1990 Arrival Date: 06/05/2025 Time: 19:38 Bed 13 Private MD: Diagnosis: Anxiety, schizophrenia Presentation: 06/05 20:08 Chief complaint: Patient states: "i started having anxiety 3 hours ago and i already zm took my Prozac today with no relief". Coronavirus screen: Vaccine status: Patient reports receiving the 2nd dose of the covid vaccine. Patient reports receiving the 1st dose of the Covid vaccine. Client denies travel out of the [place] in the last 14 days. At this time, the client does not indicate any symptoms associated with coronavirus-19. Ebola Screen: Patient denies travel to an Ebola-affected area in the 21 days before illness onset. No symptoms or risks identified at this time. Initial Sepsis Screen: Does the patient meet any 2 criteria? No. Patient's initial sepsis screen is negative. Does the patient have a suspected source of infection? No. Patient's initial sepsis screen is negative. Risk Assessment: Do you want to hurt yourself or someone else? Patient reports no desire to harm self or others. Onset of symptoms was June 05, 2025 at 17:00. Care prior to arrival: IV initiated. 18 GA, in the right antecubital area. 20:08 Method Of Arrival: [facility]: [facility] 20:08 Acuity: MADHAV 4 zm Triage Assessment: 20:12 General: Appears distressed, uncomfortable, Behavior is cooperative, anxious. Pain: zm Denies pain. Neuro: No deficits noted. Level of Consciousness is awake, alert, obeys commands, Oriented to person, place, time, situation. Cardiovascular: No deficits noted. Denies chest pain, Capillary refill < 3 seconds in bilateral fingers. Respiratory: No deficits noted. Airway is patent Respiratory effort is even, unlabored, Respiratory pattern is symmetrical, hyperventilation. Historical: - Home Meds: 20:12 Atarax Oral [Active]; Prozac 20 mg oral capsule 1 cap daily [Active]; zm - PMHx: 20:12 Anxiety; Bipolar disorder; Schizophrenia; zm - PSHx: 20:12 arm surgery; zm - Immunization history:: Adult Immunizations up to date. - Infectious Disease History:: Denies. - Social history:: Smoking status: Patient reports the use of cigarette tobacco products, smokes one-half pack cigarettes per day. Screenin:27 [facility] ED Fall Risk Assessment (Adult) History of falling in the last 3 months, bm8 including since admission No falls in past 3 months (0 pts) Confusion or Disorientation No (0 pts) Intoxicated or Sedated No (0 pts) Impaired Gait No (0 pts) Mobility Assist Device Used No (0 pt) Altered Elimination No (0 pt) Score/Fall Risk Level 0 - 2 = Low Risk Oriented to surroundings, Maintained a safe environment, Educated pt \\T\\ family on fall prevention, incl call for assistance when getting out of bed, Assessed \\T\\ reinforced patient's understanding of fall precautions, Hourly rounding (assess needs \\T\\ fall precautionary measures) done, Used ambulatory aids as needed (educated on \\T\\ assisted with), Used gait belt as appropriate. Abuse screen: Denies threats or abuse. Nutritional screening: No deficits noted. Tuberculosis screening: No symptoms or risk factors identified. Assessment: 21:09 Reassessment: Patient appears in no apparent distress at this time. Patient and/or zm family updated on plan of care and expected duration. Pain level reassessed. Patient is alert, oriented x 3, equal unlabored respirations, skin warm/dry/pink. Patient states feeling better. Patient states symptoms have improved. 21:12 Pain: Denies pain. Neuro: Level of Consciousness is awake, alert, obeys commands, zm Oriented to person, place, time, situation. Cardiovascular: No deficits noted. Respiratory: No deficits noted. 21:45 Reassessment: Patient appears in no apparent distress at this time. Patient and/or bm8 family updated on plan of care and expected duration. Pain level reassessed. Patient is alert, oriented x 3, equal unlabored respirations, skin warm/dry/pink. Had in depth conversation with mother about how patient should be taking prozac and his need to follow up with his psychiatrist MARY. to help get his anxiety under control. Patient states feeling better. Patient states symptoms have improved. Vital Signs: 20:08 BP 138 / 88; Pulse 129; Resp 20; Temp 98.3; Pulse Ox 98% on R/A; Weight 72.57 kg; zm Height 5 ft. 0 in. ; Pain 0/10; 21:22 BP 117 / 82; Pulse 105; Resp 20; Temp 98.3; Pulse Ox 96% ; Pain 0/10; bm8 21:45 BP 114 / 89; Pulse 101; Resp 17; Temp 98.2; Pulse Ox 99% ; Pain 0/10; bm8 20:08 Body Mass Index 31.25 (72.57 kg, 152.4 cm) zm 20:08 Pain Scale: Adult zm 21:22 Pain Scale: Adult bm8 21:45 Pain Scale: Adult bm8 Whiteside Coma Score: 20:27 Eye Response: spontaneous(4). Motor Response: obeys commands(6). Verbal Response: bm8 oriented(5). Total: 15. 21:22 Eye Response: spontaneous(4). Motor Response: obeys commands(6). Verbal Response: bm8 oriented(5). Total: 15. 21:45 Eye Response: spontaneous(4). Motor Response: obeys commands(6). Verbal Response: bm8 oriented(5). Total: 15. ED Course: 20:01 Patient arrived in ED. kmf 20:03 Jessika Marks MD is Attending Physician. sp3 20:08 Sherice Real, CARLA is Primary Nurse. zm 20:12 Triage completed. zm 20:12 Arm band placed on left wrist. zm 20:25 EKG completed in triage. Results shown to MD. bm8 20:27 Patient has correct armband on for positive identification. Call light in reach. Side bm8 rails up X 1. Client placed on continuous cardiac and pulse oximetry monitoring. NIBP monitoring applied. security monitor on. Pulse ox on. NIBP on. Door closed. Noise minimized. Warm blanket given. Verbal reassurance given. Head of bed elevated. 20:27 No provider procedures requiring assistance completed. Maintain EMS IV. Dressing bm8 intact. Good blood return noted. Site clean \\T\\ dry. Gauge \\T\\ site: 18 g RAC. Flushed with 10 mL NS. 21:22 Patient maintains SpO2 saturation greater than 95% on room air. bm8 21:45 Provided Education on: post er care, see last pt reassessment note. bm8 21:45 IV discontinued, intact, bleeding controlled, No redness/swelling at site. Pressure bm8 dressing applied. Administered Medications: 20:10 Drug: Ativan IVP 2 mg IVP once Route: IVP; Site: right antecubital; bm8 20:34 Follow up: Response: No adverse reaction zm 20:34 Drug: Ativan IVP 2 mg IVP once Route: IVP; Site: right antecubital; zm 21:24 Follow up: Response: No adverse reaction bm8 21:48 Follow up: Response: No adverse reaction bm8 21:48 Drug: Ativan IVP 2 mg IVP once Route: IVP; Site: right antecubital; bm8 21:48 Follow up: Response: No adverse reaction bm8 Medication: 20:27 VIS not applicable for this client. bm8 Outcome: 21:45 Discharged to home ambulatory, with family, bm8 21:45 Condition: stable 21:45 Discharge instructions given to patient, family, Instructed on discharge instructions, follow up and referral plans. no drinking with medication, no driving heavy equipment, medication usage, safety practices, Demonstrated understanding of instructions, follow-up care, medications, 21:49 Discharge ordered by . sp3 21:58 Patient left the ED. bm8 Signatures: Jessika Marks MD MD sp3 Sherice Real, RN RN Vodna Gooden [facility] Chirag Ortega, RN RN bm8
--- NOTE | 2025-06-05 21:50 | EDPHYS ---
Physician Documentation [facility] Name: Todd Schmid Age: 35 yrs Sex: Male : 1990 Arrival Date: 06/05/2025 Time: 19:38 Bed 13 Private MD: ED Physician Jessika Marks HPI: 06/05 21:18 This 35 yrs old Male presents to ER via EMS with complaints of anxiety. sp3 21:18 35-year-old male with history of bipolar disease, schizophrenia and anxiety presents sp3 via EMS for chief complaint anxiety. Patient states that he is finally on his Prozac and he feels okay but today had an anxiety attack that is not going away on its own. He denies any suicidal ideation, homicidal ideation or psychosis currently. He denies any pain whatsoever. ROS otherwise negative.. Historical: - Home Meds: 20:12 Atarax Oral [Active]; Prozac 20 mg oral capsule 1 cap daily [Active]; zm - PMHx: 20:12 Anxiety; Bipolar disorder; Schizophrenia; zm - PSHx: 20:12 arm surgery; zm - Immunization history:: Adult Immunizations up to date. - Infectious Disease History:: Denies. - Social history:: Smoking status: Patient reports the use of cigarette tobacco products, smokes one-half pack cigarettes per day. ROS: 21:19 Constitutional: Negative for fever, chills, and weight loss, Eyes: Negative for injury, sp3 pain, redness, and discharge, Neck: Negative for injury, pain, and swelling, Respiratory: Negative for shortness of breath, cough, wheezing, and pleuritic chest pain, Abdomen/GI: Negative for abdominal pain, nausea, vomiting, diarrhea, and constipation, Back: Negative for injury and pain, MS/Extremity: Negative for injury and deformity, Skin: Negative for injury, rash, and discoloration, Neuro: Negative for headache, weakness, numbness, tingling, and seizure, Allergy/Immunology: Negative for hives, rash, and allergies, Endocrine: Negative for neck swelling, polydipsia, polyuria, polyphagia, and marked weight changes, Hematologic/Lymphatic: Negative for swollen nodes, abnormal bleeding, and unusual bruising, 21:19 All other systems are negative, Exam: 21:20 Constitutional: This is a well developed, well nourished patient who is awake, alert, sp3 and in no acute distress. Head/Face: Normocephalic, atraumatic. Eyes: Pupils equal round and reactive to light, extra-ocular motions intact. Lids and lashes normal. Conjunctiva and sclera are non-icteric and not injected. Cornea within normal limits. Periorbital areas with no swelling, redness, or edema. ENT: Nares patent. No nasal discharge, no septal abnormalities noted. External auditory canals are clear. Oropharynx with no redness, swelling, or masses, exudates, or evidence of obstruction, uvula midline. Mucous membranes moist. Neck: Trachea midline, no thyromegaly or masses palpated, and no cervical lymphadenopathy. Supple, full range of motion without nuchal rigidity, or vertebral point tenderness. No Meningismus. Chest/axilla: Normal chest wall appearance and motion. Nontender with no deformity. No lesions are appreciated. Respiratory: Lungs have equal breath sounds bilaterally, clear to auscultation and percussion. No rales, rhonchi or wheezes noted. No increased work of breathing, no retractions or nasal flaring. Abdomen/GI: Soft, non-tender, with normal bowel sounds. No distension or tympany. No guarding or rebound. No evidence of tenderness throughout. Back: No spinal tenderness. No costovertebral tenderness. Full range of motion. Skin: Warm, dry with normal turgor. Normal color with no rashes, no lesions, and no evidence of cellulitis. MS/ Extremity: Pulses equal, no cyanosis. Neurovascular intact. Full, normal range of motion. Neuro: Awake and alert, GCS 15, oriented to person, place, time, and situation. Cranial nerves II-XII grossly intact. Motor strength 5/5 in all extremities. Sensory grossly intact. Cerebellar exam normal. Normal gait. 21:20 Cardiovascular: Rate: tachycardic, 21:20 Psych: Patient visibly anxious and nervous. No psychosis, suicidal ideation or homicidal ideation noted.. 21:21 ECG was reviewed by the Attending Physician. EKG demonstrates sinus tachycardia 130 bpm sp3 with normal intervals, normal QRS, normal axis, nonspecific diffuse ST/T-segment changes likely rate related without evidence of acute ischemia. Vital Signs: 20:08 BP 138 / 88; Pulse 129; Resp 20; Temp 98.3; Pulse Ox 98% on R/A; Weight 72.57 kg; zm Height 5 ft. 0 in. ; Pain 0/10; 21:22 BP 117 / 82; Pulse 105; Resp 20; Temp 98.3; Pulse Ox 96% ; Pain 0/10; bm8 21:45 BP 114 / 89; Pulse 101; Resp 17; Temp 98.2; Pulse Ox 99% ; Pain 0/10; bm8 20:08 Body Mass Index 31.25 (72.57 kg, 152.4 cm) zm 20:08 Pain Scale: Adult zm 21:22 Pain Scale: Adult bm8 21:45 Pain Scale: Adult bm8 Keller Coma Score: 20:27 Eye Response: spontaneous(4). Motor Response: obeys commands(6). Verbal Response: bm8 oriented(5). Total: 15. 21:22 Eye Response: spontaneous(4). Motor Response: obeys commands(6). Verbal Response: bm8 oriented(5). Total: 15. 21:45 Eye Response: spontaneous(4). Motor Response: obeys commands(6). Verbal Response: bm8 oriented(5). Total: 15. MDM: 20:03 Medical Screening Exam initiated sp3 21:20 Data reviewed: vital signs, nurses notes, lab test result(s), EKG. ED course: sp3 35-year-old male with anxiety. Demential diagnosis includes anxiety versus substance use versus other pathology. UDS is negative. Will administer Ativan IV for symptomatic control. No psychosis, SI or HI noted. No other intervention indicated. EKG is normal other than tachycardia.. 21:46 ED course: Patient feeling better. She is requiring 1 more dose of Ativan prior to sp3 discharge. She remains not suicidal or homicidal or responding to internal stimuli. He has psychosis at baseline. He states that he feels back to his normal self. We will safely discharge him home at this time. He knows to return anytime if he needs more assistance.. 06/05 20:29 Order name: UDS; Complete Time: 21:07 sp3 06/05 20:26 Order name: EKG; Complete Time: 20:27 bm8 Administered Medications: 20:10 Drug: Ativan IVP 2 mg IVP once Route: IVP; Site: right antecubital; bm8 20:34 Follow up: Response: No adverse reaction zm 20:34 Drug: Ativan IVP 2 mg IVP once Route: IVP; Site: right antecubital; zm 21:24 Follow up: Response: No adverse reaction bm8 21:48 Follow up: Response: No adverse reaction bm8 21:48 Drug: Ativan IVP 2 mg IVP once Route: IVP; Site: right antecubital; bm8 21:48 Follow up: Response: No adverse reaction bm8 Disposition Summary: 06/05/25 21:49 Discharge Ordered Notes: Location: Home sp3 Condition: Stable sp3 Diagnosis - Anxiety, schizophrenia sp3 Followup: sp3 - With: Private Physician - When: Upon discharge from the Emergency Department - Reason: Continuance of care Discharge Instructions: - Discharge Summary Sheet sp3 - Managing Schizophrenia sp3 - Managing Anxiety, Adult sp3 Forms: - Medication Reconciliation Form sp3 - Antibiotic Education sp3 - Prescription Opioid Use sp3 - Patient Portal Instructions sp3 - Leadership Thank You Letter sp3 Signatures: Dispatcher [employer] Jessika Leal MD MD sp3 Sherice Real, RN RN Chirag Ortega RN RN bm8
[2025-06-06 05:48] VITALS: BP 114/89; TEMP 98.2; O2SAT 99
== END 2025-06-05 21:58 | disposition home or self-care (01) ==
LOC: ER 19:38
DX: F41.9 Anxiety disorder, unspecified (principal); F20.9 Schizophrenia, unspecified; F17.210 Nicotine dependence, cigarettes, uncomplicated
CPT/HCPCS: 80307; 93005; 96374; 99285

== ENCOUNTER 2025-07-27 21:05 | Emergency (ER) | payer OTHER ==
[2025-07-27] MEDS ORDERED: LORazepam 2 MG/ML VIAL ONE ×2 (21:44→22:14)
--- NOTE | 2025-07-27 22:30 | ER ---
Nurse's Notes [facility] Name: Todd Schmid Age: 35 yrs Sex: Male : 1990 Arrival Date: 07/27/2025 Time: 21:05 Bed 6 Private MD: Diagnosis: Panic disorder [episodic paroxysmal anxiety] without agoraphobia Presentation: 07/27 21:27 Chief complaint: Patient states: HAVING BAD ANXIETY THAT STARTED ABOUT 20 HOURS AGO. dd2 Coronavirus screen: At this time, the client does not indicate any symptoms associated with coronavirus-19. Ebola Screen: No symptoms or risks identified at this time. Initial Sepsis Screen: Does the patient meet any 2 criteria? No. Patient's initial sepsis screen is negative. Does the patient have a suspected source of infection? No. Patient's initial sepsis screen is negative. Risk Assessment: Do you want to hurt yourself or someone else? Patient reports no desire to harm self or others. Onset of symptoms was July 26, 2025. 21:27 Method Of Arrival: [facility] dd2 21:27 Acuity: MADHAV 3 dd2 Triage Assessment: 21:29 General: Appears uncomfortable, Behavior is cooperative, appropriate for age, anxious. dd2 Pain: Denies pain. EENT: No deficits noted. No signs and/or symptoms were reported regarding the EENT system. Neuro: Level of Consciousness is awake, alert, obeys commands, Oriented to person, place, time, situation, Appropriate for age. Cardiovascular: No deficits noted. Respiratory: No deficits noted. Airway is patent Respiratory effort is even, unlabored, Respiratory pattern is regular, symmetrical. GI: No deficits noted. No signs and/or symptoms were reported involving the gastrointestinal system. : No deficits noted. No signs and/or symptoms were reported regarding the genitourinary system. Derm: No deficits noted. No signs and/or symptoms reported regarding the dermatologic system. Musculoskeletal: No deficits noted. No signs and/or symptoms reported regarding the musculoskeletal system. Historical: - Allergies: : No Known Allergies; dd2 - PMHx: 21:29 Anxiety; Bipolar disorder; Schizophrenia; dd2 - PSHx: 21:29 arm surgery; dd2 - Immunization history:: Adult Immunizations up to date. - Infectious Disease History:: Denies. - Social history:: Smoking status: Patient reports the use of cigarette tobacco products, smokes one-half pack cigarettes per day. Screenin:47 [facility] ED Fall Risk Assessment (Adult) History of falling in the last 3 months, kd3 including since admission No falls in past 3 months (0 pts) Confusion or Disorientation No (0 pts) Intoxicated or Sedated No (0 pts) Impaired Gait No (0 pts) Mobility Assist Device Used No (0 pt) Altered Elimination No (0 pt) Score/Fall Risk Level 0 - 2 = Low Risk Oriented to surroundings. Abuse screen: Denies threats or abuse. Denies injuries from another. Nutritional screening: No deficits noted. Tuberculosis screening: No symptoms or risk factors identified. Assessment: 21:46 General: Appears distressed, Behavior is anxious. Pain: Denies pain. Neuro: Level of kd3 Consciousness is awake, alert, obeys commands, Oriented to person, place, time, situation. Cardiovascular: Capillary refill < 3 seconds Patient's skin is warm and dry. Respiratory: Airway is patent Trachea midline Respiratory effort is even, unlabored. 22:58 General: pt is up for discharge, discharge was delayed due to benzo administration. pt kd3 was notified that he would not be receiving any more benzo for "little pain". Pt refuses to stay and walked out of the ED without his discharge paperwork. patient aaox4, ambulatory, respirations even and unlabored, patient in no apparent distress.. Vital Signs: 21:27 BP 120 / 83; Pulse 100; Resp 18; Temp 97.8(O); Pulse Ox 96% ; Weight 74.84 kg; Height 5 dd2 ft. 8 in. ; Pain 0/10; 22:00 BP 131 / 95; Pulse 86; Resp 17; Pulse Ox 99% on R/A; kd3 22:30 BP 122 / 92; Pulse 82; Resp 17; Pulse Ox 99% on R/A; kd3 21:27 Body Mass Index 25.09 (74.84 kg, 172.72 cm) dd2 21:27 Pain Scale: Adult dd2 ED Course: 21:07 Patient arrived in ED. kmf 21:07 Jovani Martin DO is Attending Physician. tt7 21:29 Triage completed. dd2 21:29 Arm band placed on left wrist. dd2 21:34 Mei Park, RN is Primary Nurse. kd3 21:47 Patient has correct armband on for positive identification. kd3 21:47 Inserted saline lock: 20 gauge in left antecubital area, using aseptic technique. Blood kd3 collected. Flushed with 10 mL NS. 23:00 Provided Education on: need to stay for observation after benzo administration. kd3 23:00 No provider procedures requiring assistance completed. IV discontinued, intact, kd3 bleeding controlled, No redness/swelling at site. Pressure dressing applied. Administered Medications: 21:48 Drug: Ativan IVP 1 mg IVP once Route: IVP; Site: left antecubital; kd3 22:21 Follow up: Response: No adverse reaction; Anxiety unchanged al5 22:21 Drug: Ativan IVP 1 mg IVP once Route: IVP; Site: left antecubital; al5 22:40 Follow up: Response: No adverse reaction; Anxiety decreased al5 23:01 Not Given (Patient Refused): [id number] mg IVP once al5 Medication: 23:01 VIS not applicable for this client. kd3 Outcome: 22:30 Discharge ordered by . tt7 23:00 Discharged to home ambulatory, kd3 23:00 Condition: stable 23:00 Discharge instructions given to patient, Instructed on discharge instructions, 23:01 Patient left the ED. kd3 Signatures: Mei Park RN RN kd3 Vonda Lagunas [facility] Cyndi Gomez RN RN al5 SERA GARCIA RN RN dd2 Jovani Martin DO DO tt7 Corrections: (The following items were deleted from the chart) 23:08 22:58 General: pt is up for discharge, discharge was delayed due to benzo kd3 administration. pt was notified that he would not be receiving any more benzo for "little pain". Pt refuses to stay and walked out of the ED without his discharge paperwork . kd3
--- NOTE | 2025-07-27 22:30 | EDPHYS ---
Physician Documentation [facility] Name: Todd Schmid Age: 35 yrs Sex: Male : 1990 Arrival Date: 07/27/2025 Time: 21:05 Bed 6 Private MD: ED Physician Jovani Martin Historical: - Allergies: 07/27 21:29 No Known Allergies; dd2 - PMHx: 21:29 Anxiety; Bipolar disorder; Schizophrenia; dd2 - PSHx: 21:29 arm surgery; dd2 - Immunization history:: Adult Immunizations up to date. - Infectious Disease History:: Denies. - Social history:: Smoking status: Patient reports the use of cigarette tobacco products, smokes one-half pack cigarettes per day. Vital Signs: 21:27 BP 120 / 83; Pulse 100; Resp 18; Temp 97.8(O); Pulse Ox 96% ; Weight 74.84 kg; Height 5 dd2 ft. 8 in. ; Pain 0/10; 22:00 BP 131 / 95; Pulse 86; Resp 17; Pulse Ox 99% on R/A; kd3 22:30 BP 122 / 92; Pulse 82; Resp 17; Pulse Ox 99% on R/A; kd3 21:27 Body Mass Index 25.09 (74.84 kg, 172.72 cm) dd2 21:27 Pain Scale: Adult dd2 MDM: 21:07 Medical Screening Exam initiated tt7 22:31 Differential Diagnosis Panic attack, anxiety, abnormal EKG. Data reviewed: vital signs, tt7 nurses notes, old medical records, EKG. ED course: I independently interpreted the patient's EKG performed on 07/27/2025 at 2158. On my interpretation, EKG demonstrates sinus rhythm with PAC, ventricular rate 82 bpm, normal axis, normal QRS interval, normal ST segments, no STEMI. 07/27 21:09 Order name: Cardiac monitoring; Complete Time: 21:48 tt7 07/27 21:09 Order name: EKG - Nurse/Tech; Complete Time: 22:02 tt7 07/27 21:09 Order name: O2 Per Protocol; Complete Time: 21:48 tt7 07/27 21:09 Order name: O2 Sat Monitoring; Complete Time: 21:48 tt7 Administered Medications: 21:48 Drug: Ativan IVP 1 mg IVP once Route: IVP; Site: left antecubital; kd3 22:21 Follow up: Response: No adverse reaction; Anxiety unchanged al5 22:21 Drug: Ativan IVP 1 mg IVP once Route: IVP; Site: left antecubital; al5 22:40 Follow up: Response: No adverse reaction; Anxiety decreased al5 23:01 Not Given (Patient Refused): [id number] mg IVP once al5 Disposition Summary: 07/27/25 22:30 Discharge Ordered Notes: Location: Home tt7 Problem: an acute exacerbation tt7 Symptoms: are resolved tt7 Condition: Stable tt7 Diagnosis - Panic disorder [episodic paroxysmal anxiety] without agoraphobia tt7 Followup: tt7 - With: Emergency Department - When: As needed - Reason: Followup: tt7 - With: Private Physician - When: 1 - 2 days - Reason: Recheck today's complaints, Re-evaluation by your physician Discharge Instructions: - Discharge Summary Sheet tt7 - Panic Attack, [id number] tt7 - Managing Anxiety, Adult tt7 Forms: - Medication Reconciliation Form tt7 - Antibiotic Education tt7 - Prescription Opioid Use tt7 - Patient Portal Instructions tt7 - Leadership Thank You Letter tt7 Addendum: 08/01/2025 18:49 Addendum: 35-year-old male presents emergency department for evaluation of panic t t7 attack, he describes sudden sensation of anxiety, fear for his life, he states that he has a history of anxiety, bipolar disorder, schizophrenia, states that his symptoms are similar to previous panic attacks, states that this is usually resolved with IV Ativan, he denies any pain at this time. Constitutional: denies fever Respiratory: denies SOB, cough Cardiovascular: denies chest pain, palpitations GI: denies abdominal pain, nausea, vomiting Neuro: denies focal weakness Skin: denies rash Constitutional: vital signs reviewed, well appearing Head: normocephalic, atraumatic Eyes: no conjunctival injection, anicteric sclerae ENMT: mucus membranes moist Neck: trachea midline, no JVD, no meningismus Respiratory: normal respiratory effort, no accessory muscle use, lungs CTAB, no wheezing or rales Cardiovascular: Regular rate and rhythm, no murmurs, no rubs, no lower extremity edema Abdomen: soft, nondistended, nontender, no guarding or rebound, negative Asher's sign, no McBurney point tenderness MSK: normal ROM of extremities, no gross deformities Skin: warm, dry, intact, no rash Neuro: alert and oriented with appropriate mental status, normal speech, follows commands, no focal neurologic deficits Psych: Moderately anxious 35-year-old male with signs/symptoms consistent with panic attack, vital signs are stable, physical exam reassuring, EKG was performed does not show any ischemic findings, he was treated with IV Ativan, reassess after intervention and felt significantly improved, symptoms totally resolved, do not believe that further workup is indicated at this time, no concern for ACS given lack of chest pain, nonischemic EKG, no risk factors, after completion of the patient's emergency department evaluation, I do not suspect a life-threatening or disabling process. Patient is medically stable and not in need of emergent medical intervention. I had a detailed discussion with the patient regarding the historical points, exam findings, emergency department evaluation, diagnostic results, and the discharge diagnosis. I instructed the patient on outpatient management of their condition. I discussed the need for outpatient follow-up with a primary care physician. I informed the patient on return precautions, including the need to return to the ED if symptoms do not improve, worsen, or if there are any questions or concerns that arise at home. The patient was discharged in stable condition . Co-signature as Attending Physician, Jovani Martin DO. Signatures: Mei Park, RN RN kd3 Cyndi Gomez RN RN al5 SERA GARCIA RN RN dd2 Jovani Martin DO DO tt7
[2025-07-27 23:14] VITALS: BP 120/83; TEMP 97.8; O2SAT 96
== END 2025-07-27 23:01 | disposition home or self-care (01) ==
LOC: ER 21:05
DX: F41.0 Panic disorder [episodic paroxysmal anxiety] (principal); F17.210 Nicotine dependence, cigarettes, uncomplicated
CPT/HCPCS: 93005; 96374; 99284

== ENCOUNTER 2025-08-17 01:16 | Emergency (ER) | payer OTHER ==
[2025-08-17] MEDS ORDERED: NA CHLORIDE 0.9% 1,000 ML ONE (01:55)
[2025-08-17] MEDS ORDERED: LORazepam 2 MG/ML VIAL ONE ×2 (01:55→02:13)
[2025-08-17 02:35] LABS: Absolute Lymphocytes (CBC) 1.8 K/uL (0.7-4.9); Hematocrit 40.5 % (39.6-49.0); Hemoglobin 13.9 g/dL (13.6-17.9); MCH 31.1 pg (27.0-35.0); MCHC 34.2 g/dL (32.0-36.0); MCV 90.7 fL (80-100); MPV 8.7 fL (7.6-11.3); Nucleated RBC Absolute Count 0.0 (0-0); Nucleated Red Blood Cells % 0.0 % (0-0); RBC Red Blood Cell Count 4.47 M/uL (4.33-5.43); White Blood Count 8.10 thou/uL (4.3-10.9)
[2025-08-17 03:00] LABS: ALT/SGPT 17 U/L (16-61); Albumin 3.2 g/dL (3.4-5.0); Albumin/Globulin Ratio 1.3 (1.1-1.8); Alkaline Phosphatase 63 U/L (45-117); Anion Gap 10.9 mEq/L (5.0-15.0); BUN Blood Urea Nitrogen 18 mg/dL (7-18); Globulin 2.5 g/dL (2.3-3.5); Glucose Level 117 mg/dL (74-106); Potassium 3.9 mEq/L (3.5-5.1)
[2025-08-17 03:01] LABS: AST/SGOT < 10 U/L (15-37); Bilirubin Indirect, Calculated 0.0 mg/dL (0.2-0.8)
[2025-08-17 03:45] LABS: METHAMPHETAM NEGATIVE (NEGATIVE); THC Cannibis NEGATIVE (NEGATIVE)
[2025-08-17] MEDS ORDERED: ONDANSETRON 4 MG/2 ML VIAL ONE (05:09)
--- NOTE | 2025-08-17 06:47 | ER ---
Nurse's Notes [facility] Name: Todd Schmid Age: 35 yrs Sex: Male : 1990 Arrival Date: 08/17/2025 Time: 01:43 Bed 14 Private MD: Diagnosis: Acute panic attack, chronic anxiety disorder Presentation: 08/17 01:47 Chief complaint: Patient states: feeling a panic attack. Coronavirus screen: Vaccine km10 status:. Ebola Screen: No symptoms or risks identified at this time. Initial Sepsis Screen: Does the patient meet any 2 criteria? No. Patient's initial sepsis screen is negative. Does the patient have a suspected source of infection? No. Patient's initial sepsis screen is negative. Risk Assessment: Do you want to hurt yourself or someone else?. Onset of symptoms was August 17, 2025. 01:47 Method Of Arrival: [facility] 01:47 Acuity: MADHAV 3 km10 Triage Assessment: 02:02 General: Appears in no apparent distress. Behavior is anxious, restless. Pain: Denies km10 pain. Neuro: Level of Consciousness is awake, alert, Oriented to person, place, time, situation, Gait is steady, Pupils are dilated. Cardiovascular: Rhythm is sinus tachycardia. Respiratory: Airway is patent Respiratory effort is even, unlabored. GI: Reports vomiting. Historical: - Allergies: 01:53 No Known Allergies; km10 - PMHx: 01:53 Anxiety; Bipolar disorder; Schizophrenia; km10 - PSHx: 01:53 arm surgery; km10 - Immunization history:: Adult Immunizations unknown. - Infectious Disease History:: Denies. - Social history:: Smoking status: Patient reports the use of cigarette tobacco products, smokes one-half pack cigarettes per day. - Family history:: not pertinent. Screenin:18 [facility] ED Fall Risk Assessment (Adult) History of falling in the last 3 months, km10 including since admission No falls in past 3 months (0 pts) Confusion or Disorientation No (0 pts) Intoxicated or Sedated No (0 pts) Impaired Gait No (0 pts) Mobility Assist Device Used No (0 pt) Altered Elimination No (0 pt) Score/Fall Risk Level 0 - 2 = Low Risk Oriented to surroundings, Maintained a safe environment, Educated pt \\T\\ family on fall prevention, incl call for assistance when getting out of bed. Abuse screen: Denies threats or abuse. Denies injuries from another. Nutritional screening: No deficits noted. Tuberculosis screening: No symptoms or risk factors identified. Assessment: 02:17 Reassessment: see triage. km10 03:55 Reassessment: Patient and/or family updated on plan of care and expected duration. Pain km10 level reassessed. Patient states symptoms have improved. 04:52 Reassessment: Patient appears in no apparent distress at this time. No changes from km10 previously documented assessment. 07:00 Reassessment: spoke with pt's mother on phone, as requested by pt. Mother states she km10 will be here to picker pt in \\R\\ 20 min. [phone]. 07:04 Reassessment: change if shift report given. 10 Psych: 02:33 [place] Suicide Severity Screening: In the past month, have you wished you were km10 or wished you could go to sleep and not wake up? Patient responds "No." "In the past month, have you actually had any thoughts of killing yourself?" Patient responds "no." "In your lifetime, have you ever done anything, started to do anything, or prepared to do anything to end your life?" Patient responds "no.". Subjective: Patient's mood is elevated, Delusions are denied, Hallucinations are denied. Objective: Patient is cooperative, restless, Speech is rambling, Affect is inappropriate. Interventions: denies SI, HI. Safety Checks:. Pt denies substance abuse. Commitment: N/A. Vital Signs: 01:47 BP 134 / 99; Pulse 86; Resp 18; Temp 98.5(O); Pulse Ox 97% on R/A; Weight 74.84 kg; km10 Height 5 ft. 8 in. ; 03:57 BP 96 / 60; Pulse 82; Resp 14; Pulse Ox 97% on R/A; km10 04:52 BP 129 / 44; Pulse 86; Resp 16; Pulse Ox 97% on R/A; km10 01:47 Body Mass Index 25.09 (74.84 kg, 172.72 cm) 10 ED Course: 01:43 Patient arrived in ED. rv1 01:46 Peyton Muñoz RN is Primary Nurse. km10 01:53 Triage completed. km10 01:56 Loc Prather MD is Attending Physician. sp4 02:00 Arm band placed on right wrist. km10 02:19 Patient has correct armband on for positive identification. Bed in low position. Call km10 light in reach. Provided Education on: plan of care. Client placed on continuous cardiac and pulse oximetry monitoring. NIBP monitoring applied. Noise minimized. Lights dimmed. Warm blanket given. Pillow given. 02:33 Salicylate Sent. km10 02:33 Hepatic Function Sent. km10 02:33 ETOH Level Sent. 10 02:33 CBC with Diff Sent. km10 02:35 No provider procedures requiring assistance completed. Maintain EMS IV. Dressing km10 intact. Good blood return noted. Site clean \\T\\ dry. Gauge \\T\\ site: 18 g. Flushed with 10 mL NS. 07:01 IV discontinued, intact, bleeding controlled, No redness/swelling at site. Pressure km10 dressing applied. Administered Medications: 02:09 Drug: NS 0.9% IV 1000 ml IV at 1000 ml once; to be given as a bolus over 60 minutes km10 Route: IV; Rate: 1000 ml; Site: left antecubital; 05:55 Follow up: Response: No adverse reaction; IV Status: Completed infusion km10 02:10 Drug: Ativan IVP 2 mg IVP once Route: IVP; Site: left antecubital; km10 02:33 Follow up: Response: No adverse reaction; No change in condition 10 02:33 Drug: Ativan IVP 2 mg IVP once Route: IVP; Site: left antecubital; km10 03:46 Follow up: Response: No adverse reaction; Anxiety decreased km10 05:14 Drug: Ondansetron IVP 4 mg IVP once; over 2 minutes Route: IVP; Site: left antecubital; km10 05:54 Follow up: Response: No adverse reaction; Nausea is decreased km10 Medication: 07:11 VIS not applicable for this client. ph Outcome: 06:46 Discharge ordered by . sp4 07:11 Discharged to home ambulatory, with family, ph 07:11 Condition: good 07:11 Discharge instructions given to patient, Instructed on discharge instructions, follow up and referral plans. medication usage, Demonstrated understanding of instructions, follow-up care, medications, Prescriptions given X 2, 07:12 Patient left the ED. ph Signatures: Guera Martin RN RN ph Madison Waite rv1 Loc Prather MD MD sp4 Peyton Muñoz RN RN km10
--- NOTE | 2025-08-17 06:47 | EDPHYS ---
Physician Documentation [facility] Name: Todd Schmid Age: 35 yrs Sex: Male : 1990 Arrival Date: 08/17/2025 Time: 01:43 Bed 14 Private MD: ED Physician Loc Prather HPI: 08/17 01:57 This 35 yrs old Male presents to ER via EMS with complaints of Psych Problem. sp4 23:02 35-year-old male presents with moderate to severe anxiety associated with parameters sp4 and panic. Historical: - Allergies: :53 No Known Allergies; km10 - PMHx: :53 Anxiety; Bipolar disorder; Schizophrenia; km10 - PSHx: :53 arm surgery; 10 - Immunization history:: Adult Immunizations unknown. - Infectious Disease History:: Denies. - Social history:: Smoking status: Patient reports the use of cigarette tobacco products, smokes one-half pack cigarettes per day. - Family history:: not pertinent. ROS: 23:02 Constitutional: Negative for fever, chills, and weight loss, positive for anxiety sp4 tremors and panic 23:02 All other systems are negative, Exam: 23:02 Constitutional: This is a well developed, well nourished patient who is awake, alert, sp4 tremulous appearing male, anxious appearing, dry mouth. Rambling speech. Head/Face: Normocephalic, atraumatic. Eyes: Pupils equal round and reactive to light, extra-ocular motions intact. Lids and lashes normal. Conjunctiva and sclera are not injected. Cornea within normal limits. Periorbital areas with no swelling, redness, or edema. ENT: Nares patent. No nasal discharge, no septal abnormalities noted. Tympanic membranes are normal and external auditory canals are clear. Oropharynx with no redness, swelling, or masses, exudates, or evidence of obstruction, uvula midline. Mucous membranes moist. Neck: Trachea midline, no thyromegaly or masses palpated, and no cervical lymphadenopathy. Supple, full range of motion without nuchal rigidity, or vertebral point tenderness. Chest/axilla: Normal chest wall appearance and motion. Nontender with no deformity. No lesions are appreciated. Cardiovascular: Regular rate and rhythm with a normal S1 and S2. No gallops, murmurs, or rubs. No pulse deficits. Respiratory: Lungs have equal breath sounds bilaterally, clear to auscultation and percussion. No rales, rhonchi or wheezes noted. No increased work of breathing, no retractions or nasal flaring. Abdomen/GI: Soft, with normal bowel sounds. No distension or tympany. No guarding or rebound. No evidence of tenderness throughout. Back: No spinal tenderness. No costovertebral tenderness. Skin: Warm, dry with normal turgor. Normal color with no rashes, no lesions, and no evidence of cellulitis. MS/ Extremity: Pulses equal, no cyanosis. Neurovascular intact. Full, normal range of motion. Neuro: Awake and alert, GCS 15, oriented to person, place, Cranial nerves II-XII grossly intact. Motor strength 5/5 in all extremities. Sensory grossly intact. Psych: Awake, alert, with orientation to person, anxious appearing, tremulous appearing, rambling speech Vital Signs: 01:47 BP 134 / 99; Pulse 86; Resp 18; Temp 98.5(O); Pulse Ox 97% on R/A; Weight 74.84 kg; km10 Height 5 ft. 8 in. ; 03:57 BP 96 / 60; Pulse 82; Resp 14; Pulse Ox 97% on R/A; 10 04:52 BP 129 / 44; Pulse 86; Resp 16; Pulse Ox 97% on R/A; km10 01:47 Body Mass Index 25.09 (74.84 kg, 172.72 cm) [facility] MDM: 01:58 Medical Screening Exam initiated sp4 23:03 Differential diagnosis: drug withdrawal. acute psychotic break, depression, psychosis sp4 secondary to non-compliance. Data reviewed: vital signs, nurses notes, EMS record, old medical records, lab test result(s). Consideration of Admission/Observation Escalation of care including admission/observation considered. ED course: Patient much improved after administration of lorazepam. At this patient who is stable for discharge home. ED course: Patient prescribed as needed lorazepam. 08/17 01:58 Order name: Acetaminophen; Complete Time: 04:44 sp4 08/17 01:58 Order name: Basic Metabolic Panel; Complete Time: 04:44 sp4 08/17 01:58 Order name: CBC with Diff; Complete Time: 04:44 sp4 08/17 01:58 Order name: ETOH Level; Complete Time: 04:44 sp4 08/17 01:58 Order name: Hepatic Function; Complete Time: 04:44 sp4 08/17 01:58 Order name: Salicylate; Complete Time: 04:44 sp4 08/17 01:58 Order name: Urine Drug Screen; Complete Time: 04:44 sp4 08/17 01:58 Order name: IV Saline Lock; Complete Time: 02:09 sp4 08/17 01:58 Order name: Labs collected and sent; Complete Time: 02:33 sp4 08/17 01:58 Order name: Suicide Screening ([place]); Complete Time: 02:35 sp4 Administered Medications: 02:09 Drug: NS 0.9% IV 1000 ml IV at 1000 ml once; to be given as a bolus over 60 minutes km10 Route: IV; Rate: 1000 ml; Site: left antecubital; 05:55 Follow up: Response: No adverse reaction; IV Status: Completed infusion km10 02:10 Drug: Ativan IVP 2 mg IVP once Route: IVP; Site: left antecubital; km10 02:33 Follow up: Response: No adverse reaction; No change in condition km10 02:33 Drug: Ativan IVP 2 mg IVP once Route: IVP; Site: left antecubital; km10 03:46 Follow up: Response: No adverse reaction; Anxiety decreased km10 05:14 Drug: Ondansetron IVP 4 mg IVP once; over 2 minutes Route: IVP; Site: left antecubital; km10 05:54 Follow up: Response: No adverse reaction; Nausea is decreased km10 Disposition Summary: 08/17/25 06:46 Discharge Ordered Notes: Location: Home sp4 Problem: new sp4 Symptoms: have improved sp4 Condition: Stable sp4 Diagnosis - Acute panic attack, chronic anxiety disorder sp4 Followup: sp4 - With: Private Physician - When: 7 - 10 days - Reason: Recheck today's complaints Discharge Instructions: - Discharge Summary Sheet sp4 - Managing Anxiety, Adult sp4 Forms: - Patient Portal Instructions sp4 Prescriptions: - Ativan 1 mg Oral tablet - take 1 tablet ORAL route once daily As needed PRN anxiety; 5 tablet; Refills: sp4 0, Product Selection Permitted - promethazine 25 mg Oral tablet - take 1 tablet ORAL route every 8 hours As needed PRN nausea; 30 tablet; sp4 Refills: 0, Product Selection Permitted Signatures: Dispatcher [employer] EDMS oLc Prather MD MD sp4 Peyton Muñoz RN RN km10 Corrections: (The following items were deleted from the chart) 01:59 01:59 ACETAMINOPHEN+C.LAB.BRZ ordered. EDMS EDMS 01:59 01:59 BASIC METABOLIC PANEL+C.LAB.BRZ ordered. EDMS EDMS 01:59 01:59 CBC+H.LAB.BRZ ordered. EDMS EDMS 01:59 01:59 ETHANOL+C.LAB.BRZ ordered. EDMS EDMS 01:59 01:59 HEPATIC FUNCTION+C.LAB.BRZ ordered. EDMS EDMS 01:59 01:59 SALICYLATE+C.LAB.BRZ ordered. EDMS EDMS 01:59 01:59 URINE DRUG SCREEN+UC.LAB.BRZ ordered. EDMS EDMS
[2025-08-17 08:27] VITALS: TEMP 98.5; O2SAT 97
[2025-08-17 08:29] VITALS: BP 129/44
== END 2025-08-17 07:12 | disposition home or self-care (01) ==
LOC: ER 01:46
DX: F41.0 Panic disorder [episodic paroxysmal anxiety] (principal); F41.9 Anxiety disorder, unspecified; F17.210 Nicotine dependence, cigarettes, uncomplicated
CPT/HCPCS: 96361; 85025; 80048; 36415; 80076; 80307; 96375; 96374; 99284; 80143; 80179; 82077; J2405; J7030